=== PATIENT | male | born 1950 | race Caucasian/White ===

== ENCOUNTER → 2017-11-12 07:46 | Outpatient (CLI) | payer MEDICARE, OTHER, SELFPAY ==
[2017-11-12 08:34] LABS: BUN Creatinine Ratio 16.3 (6-22); Blood Urea Nitrogen 13 mg/dL (9-20); Calcium 9.8 mg/dL (8.4-10.2); Carbon Dioxide 32 mmol/L (22-32); Chloride 100 mmol/L (98-107); Estimated Glomerular Filt Rate > 60.0 mL/min (>60); Glucose 176 mg/dL (80-110); HEMOLYSIS < 15 (0-50); Potassium 4.8 mmol/L (3.4-5.1); Sodium 139 mmol/L (137-145)
[2017-11-12 08:37] LABS: Hemoglobin A1C% w Est Avg Glu 7.3 % (4.0-6.0)
== END ==
PROVIDERS: PCP Internal Medicine; Visit Provider Internal Medicine
DX: E11.9 Type 2 diabetes mellitus without complications (principal); I10 Essential (primary) hypertension
CPT/HCPCS: 36415; 80048; 83036

== ENCOUNTER → 2018-01-22 08:26 | Outpatient (CLI) | payer MEDICARE, OTHER, SELFPAY ==
[2018-01-22 09:13] LABS: INR 1.1 (0.9-1.3); Prothrombin Time 12.1 SECONDS (10.1-12.7)
[2018-01-22 09:15] LABS: Add Manual Diff / Slide Review NO; Basophils Percent Auto 0.4 % (0-2); Eosinophils Percent Auto 1.4 % (2-4); Hematocrit 41.2 % (41-53); Lymphocytes Percent Auto 17.4 % (25-40); Mean Corpuscular Hemoglobin 30.4 PG (26-34); Mean Corpuscular Volume 89.3 fL (80-100); Monocytes Percent Auto 5.9 % (3-14); Neutrophils Absolute Auto 5400 /uL (3000-5900); Neutrophils Percent Auto 74.9 % (50-75); Platelet Count 150 X10^3/uL (150-400); Red Blood Cell Count 4.61 X10^6/uL (4.5-5.9); Red Cell Distribution Width 13.9 % (11.6-14.8); White Blood Cell Count 7.2 X10^3/uL (4.5-11.0)
[2018-01-22 09:29] LABS: BUN Creatinine Ratio 18.8 (6-22); Blood Urea Nitrogen 15 mg/dL (9-20); Calcium 8.9 mg/dL (8.4-10.2); Carbon Dioxide 29 mmol/L (22-32); Chloride 100 mmol/L (98-107); Estimated Glomerular Filt Rate > 60.0 mL/min (>60); Glucose 239 mg/dL (80-110); HEMOLYSIS < 15 (0-50); Phosphorous 3.5 mg/dL (2.3-3.7); Potassium 4.5 mmol/L (3.4-5.1); Sodium 139 mmol/L (137-145)
== END ==
PROVIDERS: PCP Internal Medicine; Visit Provider Internal Medicine Cardiovascular Disease
DX: R07.9 Chest pain, unspecified (principal)
CPT/HCPCS: 36415; 80069; 85025; 85610

== ENCOUNTER → 2018-02-01 07:54 | Outpatient (CLI) | payer MEDICARE, OTHER, SELFPAY ==
[2018-02-01 09:34] LABS: Albumin 4.2 g/dL (3.5-5.0); BUN Creatinine Ratio 16.3 (6-22); Blood Urea Nitrogen 13 mg/dL (9-20); Calcium 9.2 mg/dL (8.4-10.2); Carbon Dioxide 32 mmol/L (22-32); Chloride 102 mmol/L (98-107); Estimated Glomerular Filt Rate > 60.0 mL/min (>60); Glucose 196 mg/dL (80-110); HEMOLYSIS < 15 (0-50); Phosphorous 3.8 mg/dL (2.3-3.7); Potassium 5.3 mmol/L (3.4-5.1); Sodium 143 mmol/L (137-145)
== END ==
PROVIDERS: Family Provider Internal Medicine; PCP Internal Medicine; Visit Provider Internal Medicine Cardiovascular Disease
DX: R07.9 Chest pain, unspecified (principal)
CPT/HCPCS: 36415; 80069

== ENCOUNTER → 2018-02-27 11:58 | Outpatient (CLI) | payer MEDICARE, OTHER, SELFPAY ==
[2018-02-27 13:29] LABS: BUN Creatinine Ratio 18.6 (6-22); Blood Urea Nitrogen 13 mg/dL (9-20); Calcium 9.4 mg/dL (8.4-10.2); Carbon Dioxide 29 mmol/L (22-32); Chloride 101 mmol/L (98-107); Estimated Glomerular Filt Rate > 60.0 mL/min (>60); Glucose 179 mg/dL (80-110); HEMOLYSIS < 15 (0-50); Potassium 4.2 mmol/L (3.4-5.1); Sodium 141 mmol/L (137-145)
== END ==
PROVIDERS: Family Provider Internal Medicine; PCP Internal Medicine; Visit Provider Internal Medicine Cardiovascular Disease
DX: I35.0 Nonrheumatic aortic (valve) stenosis (principal); I65.29 Occlusion and stenosis of unspecified carotid artery; E11.9 Type 2 diabetes mellitus without complications; I10 Essential (primary) hypertension
CPT/HCPCS: 36415; 80048

== ENCOUNTER → 2018-03-18 08:00 | Outpatient (CLI) | payer MEDICARE, OTHER, SELFPAY ==
[2018-03-18 10:06] LABS: Hemoglobin A1C% w Est Avg Glu 7.9 % (4.0-6.0)
== END ==
PROVIDERS: PCP Internal Medicine; Visit Provider Internal Medicine
DX: E11.9 Type 2 diabetes mellitus without complications (principal)
CPT/HCPCS: 36415; 83036

== ENCOUNTER → 2018-04-09 07:54 | Outpatient (CLI) | payer MEDICARE, OTHER, SELFPAY ==
[2018-04-09 09:03] LABS: Alanine Aminotransferase 23 IU/L (21-72); Albumin 4.1 g/dL (3.5-5.0); Albumin Globulin Ratio 1.5 (1.0-2.8); Alkaline Phosphatase 83 U/L (38-126); Aspartate Aminotransferase 20 IU/L (17-59); Bilirubin Total 0.6 mg/dL (0.2-1.3); Bilirubin Unconjugated 0.4 mg/dL (0.0-1.1); Cholesterol 155 mg/dL (140-199); Globulin 2.8 g/dL (1.7-4.1); HDL Cholesterol 51 mg/dL (40-60); HEMOLYSIS < 15 (0-50); LDL Cholesterol Calculated 81 mg/dL (<100); Total Protein 6.9 g/dL (6.3-8.2); Triglycerides 116 mg/dL (35-150)
== END ==
PROVIDERS: PCP Internal Medicine; Visit Provider Physician Assistant
DX: E78.5 Hyperlipidemia, unspecified (principal)
CPT/HCPCS: 36415; 80061; 80076

== ENCOUNTER → 2018-05-04 09:06 | Outpatient (CLI) | payer MEDICARE, OTHER, SELFPAY | PROVIDERS: Family Provider Internal Medicine; PCP Internal Medicine; Visit Provider Urology | DX: Z12.5 Encounter for screening for malignant neoplasm of prostate (principal) | CPT/HCPCS: 36415; 84153; G0103 ==

== ENCOUNTER 2018-08-09 14:00 | Outpatient (RCR) | payer MEDICARE, OTHER, SELFPAY | END 2018-08-16 10:29 | LOC: CAR 14:00 | PROVIDERS: Family Provider Internal Medicine; PCP Internal Medicine; Visit Provider Internal Medicine Interventional Cardiology | DX: Z95.2 Presence of prosthetic heart valve (principal) | CPT/HCPCS: 93798 ==

== ENCOUNTER → 2019-02-24 11:58 | Outpatient (CLI) | payer MEDICARE, OTHER, SELFPAY ==
--- NOTE | 2019-02-24 12:07 | DI.CT.S_ITS ---
PROCEDURE: CT ABDOMEN W CON INDICATIONS: Neoplasm of unspecified behavior of digestive system. Additional history: Pancreatic lesion. TECHNIQUE: After the administration of intravenous contrast, 5 mm thick sections acquired from the diaphragm to the iliac crests. 5 mm coronal and sagittal reformats were performed. For radiation dose reduction, the following was used: automated exposure control, adjustment of mA and/or kV according to patient size. COMPARISON: CT angiogram of the chest, abdomen and pelvis 02/11/2018. CT IVP 05/10/2009. FINDINGS: Image quality: Excellent. Lung bases: Lung bases are clear. Heart size is normal. Small hiatal hernia. Solid organs: Liver is normal in size and enhancement. Focal hypodense lesion in segment 6 measuring 1.5 cm, (2/35). There is a punctate focus of peripheral arterial enhancement. This is faintly visualized on the prior CT from 2017 and enhancing in 2009 consistent with a hemangioma. Gallbladder is absent. Biliary system is non dilated. Pancreas enhances normally. Unilocular cystic lesion in the tail of the pancreas measuring 2 x 1.1 cm, (2/30), previously 2 x 1 cm, remotely 1.9 x 1.1 cm in 2009. No enhancing mural nodule. No pancreatic ductal dilatation. No peripancreatic fluid collection. Spleen is normal in size and enhancement. No adrenal nodules. Kidneys demonstrate normal size and enhancement, without hydronephrosis. Small simple left renal cyst. Peritoneum and bowel: Bowel loops demonstrate normal wall thickness and caliber. No free fluid or air. Nodes and vessels: No retroperitoneal or mesenteric adenopathy by size criteria. Aorta and inferior vena cava are normal in size. Miscellaneous: No ventral hernias. IMPRESSION: 1. Small cystic lesion in the tail of the pancreas measuring 2 cm. No suspicious imaging features and unchanged since 2009. Differential diagnosis includes epithelial cyst, IPMN, and less likely pseudocyst or MCN. 2. Small benign hemangioma in segment 6 of the liver. Dictated by: Christopher Burroughs M.D. on 02/25/2019 at 10:04 Approved by: Christopher Burroughs M.D. on 02/25/2019 at 10:38
[2019-02-24 12:42] LABS: Blood Urea Nitrogen 14 mg/dL (9-20); Carbon Dioxide 31 mmol/L (22-32); Chloride 99 mmol/L (98-107); Estimated Glomerular Filt Rate > 60.0 mL/min (>60); Glucose 116 mg/dL (80-110); HEMOLYSIS < 15 (0-50); Potassium 4.1 mmol/L (3.4-5.1); Sodium 136 mmol/L (137-145)
== END ==
PROVIDERS: PCP Internal Medicine; Visit Provider Internal Medicine
DX: D49.0 Neoplasm of unspecified behavior of digestive system (principal); K86.9 Disease of pancreas, unspecified; D18.09 Hemangioma of other sites; N28.1 Cyst of kidney, acquired
CPT/HCPCS: 36415; 74170; 80048; Q9967

== ENCOUNTER → 2019-05-26 14:50 | Outpatient (ROUT) | payer MEDICARE, OTHER, SELFPAY ==
[2019-05-26 15:12] LABS: Hemoglobin A1C% w Est Avg Glu 7.3 % (4.0-6.0)
[2019-05-26 15:16] LABS: Aspartate Aminotransferase 25 IU/L (17-59); BUN Creatinine Ratio 18.6 (6-22); Blood Urea Nitrogen 13 mg/dL (9-20); Calcium 9.3 mg/dL (8.4-10.2); Carbon Dioxide 29 mmol/L (22-32); Chloride 100 mmol/L (98-107); Cholesterol 183 mg/dL (140-199); Estimated Glomerular Filt Rate > 60.0 mL/min (>60); Glucose 159 mg/dL (80-110); HDL Cholesterol 52 mg/dL (40-60); HEMOLYSIS < 15 (0-50); LDL Cholesterol Calculated 114 mg/dL (<100); Potassium 4.3 mmol/L (3.4-5.1); Sodium 137 mmol/L (137-145); Triglycerides 86 mg/dL (35-150)
[2019-05-26 16:01] LABS: Vitamin B12 448 pg/mL (239-931)
== END ==
PROVIDERS: PCP Internal Medicine; Visit Provider Internal Medicine
DX: I10 Essential (primary) hypertension (principal); E78.2 Mixed hyperlipidemia; E11.9 Type 2 diabetes mellitus without complications; E53.8 Deficiency of other specified B group vitamins
CPT/HCPCS: 80048; 80061; 82607; 83036; 84450

== ENCOUNTER → 2019-11-30 09:44 | Outpatient (CLI) | payer MEDICARE, OTHER, SELFPAY ==
[2019-12-01 06:36] LABS: PSA Free % 23.6 % (.); PSA, Total 1.1 ng/mL (0.0-4.0)
== END ==
PROVIDERS: PCP Internal Medicine; Referring Provider Urology; Visit Provider Urology
DX: N40.1 Benign prostatic hyperplasia with lower urinary tract symptoms (principal); N13.8 Other obstructive and reflux uropathy
CPT/HCPCS: 36415; 84153; 84154

== ENCOUNTER → 2020-01-18 18:37 | Outpatient (ROUT) | payer MEDICARE, OTHER, SELFPAY ==
[2020-01-18 19:02] LABS: Add Manual Diff / Slide Review NO; Basophils Absolute Auto 0 /uL (0-100); Basophils Percent Auto 0.3 % (0-2); Eosinophils Absolute Auto 100 /uL (0-450); Eosinophils Percent Auto 1.6 % (2-4); Hemoglobin 14.1 g/dL (13.5-17.5); Lymphocytes Absolute Auto 1300 /uL (1100-4500); Lymphocytes Percent Auto 24.4 % (25-40); Mean Corpuscular HGB Conc 33.6 % (30-36); Mean Corpuscular Volume 89.5 fL (80-100); Monocytes Absolute Auto 300 /uL (0-900); Monocytes Percent Auto 6.4 % (3-14); Neutrophils Absolute Auto 3500 /uL (1500-7000); Neutrophils Percent Auto 67.3 % (50-75); Platelet Count 152 X10^3/uL (150-400); Red Cell Distribution Width 14.3 % (11.6-14.8); White Blood Cell Count 5.1 X10^3/uL (4.5-11.0)
[2020-01-18 19:12] LABS: Alanine Aminotransferase 23 IU/L (<50); Albumin Globulin Ratio 1.4 (1.0-2.8); Alkaline Phosphatase 69 U/L (38-126); Aspartate Aminotransferase 24 IU/L (17-59); BUN Creatinine Ratio 17.3 (6-22); Bilirubin Total 0.7 mg/dL (0.2-1.3); Blood Urea Nitrogen 13 mg/dL (9-20); Calcium 9.1 mg/dL (8.4-10.2); Carbon Dioxide 32 mmol/L (22-32); Chloride 100 mmol/L (98-107); Cholesterol 139 mg/dL (140-199); Estimated Glomerular Filt Rate > 60.0 mL/min (>60); Globulin 2.8 g/dL (1.7-4.1); Glucose 170 mg/dL (80-110); HDL Cholesterol 71 mg/dL (40-60); HEMOLYSIS < 15 (0-50); LDL Cholesterol Calculated 55 mg/dL (<100); Potassium 4.4 mmol/L (3.4-5.1); Sodium 136 mmol/L (137-145); Total Protein 6.8 g/dL (6.3-8.2); Triglycerides 67 mg/dL (35-150)
[2020-01-18 19:39] LABS: TSH w/ Reflex to FT4 0.42 uIU/mL (0.47-4.68)
[2020-01-18 20:21] LABS: Free T4, Direct Thyroxine 1.32 ng/dL (0.78-2.19)
== END ==
PROVIDERS: PCP Internal Medicine; Visit Provider Internal Medicine
DX: I25.10 Atherosclerotic heart disease of native coronary artery without angina pectoris (principal); E78.2 Mixed hyperlipidemia
CPT/HCPCS: 80053; 80061; 84439; 84443; 85025

== ENCOUNTER → 2020-01-24 08:19 | Outpatient (CLI) | payer MEDICARE, OTHER, SELFPAY ==
--- NOTE | 2020-01-24 | DI.US.S_ITS ---
PROCEDURE: US THYROID INDICATIONS: Nontoxic single thyroid nodule TECHNIQUE: Real-time scanning was performed of the thyroid gland, with image documentation. COMPARISON: [facility], US, THYROID, 03/24/2017, 7:23. FINDINGS: Right: Thyroid lobe measures 5.9 x 2.9 x 2.7 cm, and is homogeneous in echotexture. Left: Thyroid lobe measures 5.2 x 2.7 x 2.0 cm, and is homogenous in echotexture. Isthmus: 3.0 mm thick. Nodule number: 1 Location: Right inferior Size: Unchanged at 0.4 x 0.6 x 0.5 cm Composition: Predominantly solid Echogenicity: Heterogeneous Shape: Wider than tall Margins: Smooth Echogenic foci: None Total points: 3 ACR TI-RADS category: Mildly suspicious Nodule number: 2 Location: Left inferior Size: Unchanged 1.0 x 0.9 x 0.5 cm. Composition: Predominantly solid Echogenicity: Heterogeneous Shape: wider than tall. Margins: Smooth Echogenic foci: None Total points: 3 ACR TI-RADS category: Mildly suspicious Nodule number: 3 Location: Left mid Size: Unchanged 0.7 x 0.7 x 0.4 cm. Composition: Predominantly cystic Echogenicity: Predominantly anechoic Shape: wider than tall. Margins: Smooth Echogenic foci: None Total points: 0 ACR TI-RADS category: Benign colloid cyst IMPRESSION: Stable appearance of bilateral thyroid nodules. Given the small size is, no follow-up is warranted. ACR TI-RADS definitions and recommendations: TI-RADS 1 (benign): 0 points. FNA not needed. TI-RADS 2 (not suspicious): 2 points. FNA not needed. TI-RADS 3 (mildly suspicious): 3 points. * FNA if 2.5 cm or larger, follow up if 1.5 cm or larger (at 1, 3, and 5 years). TI-RADS 4 (moderately suspicious): 4-6 points. * FNA if 1.5 cm or larger, follow up if 1 cm or larger (at 1, 2, 3, and 5 years). TI-RADS 5 (highly suspicious): 7 points or more. * FNA if 1 cm or larger, follow up if 0.5 cm or larger (every year for 5 years). Dictated by: Frantz RANDHAWA Interpreted: Laura Nash MD on 01/24/2020 at 17:01 Approved by: Laura Nash MD, PhD on 01/24/2020 at 17:41
== END ==
PROVIDERS: PCP Internal Medicine; Referring Provider Internal Medicine; Visit Provider Internal Medicine
DX: E04.2 Nontoxic multinodular goiter (principal)
CPT/HCPCS: 76536

== ENCOUNTER → 2020-04-30 09:19 | Outpatient (CLI) | payer MEDICARE, OTHER, SELFPAY ==
--- NOTE | 2020-04-30 | DI.ECHO.S_ITS ---
[facility]---------+ [facility] +---------+ : : [address] : : : : [phone] : : : : Phone: [phone] Echocardiogram Report + + :Name: ESAU SANTIAGO Study Date: 04/30/2020 Height: 66 in : :[facility] Exam Location: [address] [place] [address] Weight: 168 lb : : Gender: Male BSA: 1.9 m2 : :: 1950 Age: 69 yrs BP: 160/89 mmHg: :Reason For Study: AORTIC STENOSIS : :Ordering Physician: JOON, : :BO Performed By: Arianna Lam : :Referring: STEVE MORALES : + + Interpretation Summary Mild concentric left ventricular hypertrophy with ejection fraction 60-65%. Mild mitral annular calcification. Mild mitral regurgitation. The bioprosthetic aortic valve is well seated. There is mild perivalvular regurgitation around the prosthetic aortic valve. Mildly enlarged ascending aorta. Procedure: A two-dimensional transthoracic echocardiogram with color flow and Doppler was performed. The study quality was technically adequate. The patient had an echocardiogram, but there is no comparison study available. The heart rate ranged between 58-64 bpm during the study. Left Ventricle: The left ventricle is normal in size. There is mild concentric left ventricular hypertrophy. The ejection fraction is estimated to be 60-65%. There are no focal wall motion abnormalities. Diastolic parameters suggest a relaxation abnormality of the left ventricle, consistent with probable normal filling pressures. Right Ventricle: The right ventricle grossly appears normal in size with probable normal systolic function. Atria: Both atria are normal in size. There is no Doppler evidence for an interatrial shunt. Mitral Valve: The mitral valve leaflets appear mildly thickened, but open well. There is mild mitral annular calcification. There is mild mitral regurgitation. Aortic Valve: There is a prosthetic aortic valve. There is mild perivalvular regurgitation around the prosthetic aortic valve. Tricuspid Valve: The tricuspid valve is normal in structure and function. Pulmonary artery pressures cannot be estimated because of the lack of a measurable TR jet velocity but the IVC suggests a CVP of around 8 mmHg. There is trace tricuspid regurgitation. Pulmonic Valve: The pulmonic valve leaflets are thin and pliable; valve motion is normal. There is no pulmonic valvular regurgitation. Great Vessels: The ascending aorta is mildly enlarged. The IVC is dilated (diameter is greater than 2.1 cm) yet it collapses greater than 50% with a sniff. This suggests a right atrial pressure of 8 mm Hg. Pericardium/ Pleura There is no pericardial effusion. There is no pleural effusion. MMode/2D Measurements & Calculations LVIDd: 4.1 cm LVOT diam: 1.9 cm LVIDs: 2.7 cm asc Aorta Diam: 3.5 cm FS: 33.4 % Ao Arch Diam (Prox Trans): 3.1 cm EPSS: 1.4 cm IVSd: 1.1 cm LVPWd: 1.1 cm LV snider. diameter/BSA (cm/m^2): 2.2 LV sys. diameter/BSA (cm/m^2): 1.5 LA A2 area: 22.3 cm2 RA long axis: 5.4 cm LA A4 area: 19.4 cm2 RA area: 17.3 cm2 LA length (vol): 6.0 cm RA vol: 47.2 ml LA vol: 60.8 ml RA : 25.4 ml/m2 LA vol index: 32.7 ml/m2 IVC diam: 2.3 cm RVD1 (basal): 2.8 cm TAPSE: 3.1 cm Doppler Measurements & Calculations Ao V2 max: 254.0 cm/sec LVOT Max Davie: 86.2 cm/sec Ao V2 mean: 166.3 cm/sec LV V1 max P.0 mmHg Ao max P.8 mmHg LV V1 VTI: 21.6 cm Ao mean P.9 mmHg ANTHONY(I,D): 1.1 cm2 Ao V2 VTI: 56.3 cm ANTHONY(V,D): 0.94 cm2 sev ratio: 0.38 ANTHONY indexed to BSA (cm^2/m^2): 0.57 MV E max davie: 122.1 cm/sec PA V2 max: 71.0 cm/sec MV A max davie: 120.9 cm/sec PA V2 mean: 50.0 cm/sec MV E/A: 1.0 PA mean P.1 mmHg Med Peak E' Davie: 4.6 cm/sec PA pr(Accel): 8.8 mmHg E/E' med: 26.8 Lat Peak E' Davie: 7.4 cm/sec E/E' lat: 16.6 E/e' average: 21.7 MV dec time: 0.26 sec SV(LVOT): 60.1 ml Electronically signed by: Nicole Powell on Reading Physician:04/30/2020 05:59 PM
== END ==
PROVIDERS: PCP Internal Medicine; Referring Provider Internal Medicine Cardiovascular Disease; Visit Provider Internal Medicine Cardiovascular Disease
DX: I08.0 Rheumatic disorders of both mitral and aortic valves (principal); I77.89 Other specified disorders of arteries and arterioles; Z95.2 Presence of prosthetic heart valve
CPT/HCPCS: 93306

== ENCOUNTER → 2020-06-29 07:44 | Outpatient (CLI) | payer MEDICARE, OTHER, SELFPAY ==
[2020-06-29] MEDS: COVID-19 VACC, Ad26(JANSSEN)/PF 0.5 ML IM (07:51)
== END ==
PROVIDERS: PCP Internal Medicine; Visit Provider Internal Medicine
DX: Z23 Encounter for immunization (principal)
CPT/HCPCS: 0031A; 91303

== ENCOUNTER → 2020-09-13 14:13 | Outpatient (CLI) | payer MEDICARE, OTHER, SELFPAY ==
--- NOTE | 2020-09-13 14:16 | DI.RAD.S_ITS ---
PROCEDURE: XR LUMBAR SPINE 2-3V INDICATIONS: Pain, extending into the left leg/hip. TECHNIQUE: 3 views of the lumbar spine were acquired. COMPARISON: None. FINDINGS: Bones: No acute fracture identified. Trace retrolisthesis of L3 on L4. There is extensive anterior osteophyte formation and flowing ossification. Moderate narrowing of the lumbar disc spaces. Multilevel degenerative endplate sclerosis and spurring. Diffuse facet arthropathy. Mild levocurvature. Mild bilateral hip joint degeneration Soft tissues: Overlying bowel gas pattern is normal. No suspicious soft tissue calcifications. IMPRESSION: Multilevel moderate lumbar space spondylosis and facet arthropathy. Mild levocurvature. Prominent anterior spinal ossification raising the possibility of superimposed DISH (diffuse idiopathic skeletal hyperostosis) Dictated by: Cachorro Swain M.D. on 09/13/2020 at 15:55 Approved by: Cachorro Swain M.D. on 09/13/2020 at 15:57
== END ==
PROVIDERS: PCP Internal Medicine; Referring Provider Internal Medicine; Visit Provider Internal Medicine
DX: M54.5 Low back pain (principal); M47.816 Spondylosis without myelopathy or radiculopathy, lumbar region
CPT/HCPCS: 72100

== ENCOUNTER → 2020-12-10 07:43 | Outpatient (CLI) | payer MEDICARE, OTHER, SELFPAY ==
[2020-12-10 09:02] LABS: Aspartate Aminotransferase 23 IU/L (17-59); BUN Creatinine Ratio 14.9 (6-22); Blood Urea Nitrogen 11 mg/dL (9-20); Calcium 9.2 mg/dL (8.4-10.2); Carbon Dioxide 31 mmol/L (22-32); Chloride 101 mmol/L (98-107); Cholesterol 124 mg/dL (140-199); Estimated Glomerular Filt Rate > 60.0 mL/min (>60); Glucose 167 mg/dL (80-110); HDL Cholesterol 60 mg/dL (40-60); HEMOLYSIS < 15 (0-50); LDL Cholesterol Calculated 48 mg/dL (<100); Potassium 4.1 mmol/L (3.4-5.1); Sodium 137 mmol/L (137-145); Triglycerides 81 mg/dL (35-150)
== END ==
PROVIDERS: PCP Internal Medicine; Referring Provider Internal Medicine; Visit Provider Internal Medicine
DX: I10 Essential (primary) hypertension (principal); E78.2 Mixed hyperlipidemia
CPT/HCPCS: 36415; 80048; 80061; 84450

== ENCOUNTER → 2020-12-14 10:20 | Outpatient (CLI) | payer MEDICARE, OTHER, SELFPAY ==
[2020-12-16 10:24] LABS: PSA Free % 24.2 % (.); PSA, Total 1.2 ng/mL (0.0-4.0)
== END ==
PROVIDERS: PCP Internal Medicine; Referring Provider Urology; Visit Provider Urology
DX: N40.1 Benign prostatic hyperplasia with lower urinary tract symptoms (principal); N13.8 Other obstructive and reflux uropathy
CPT/HCPCS: 36415; 84153; 84154

== ENCOUNTER → 2021-10-24 09:19 | Outpatient (CLI) | payer MEDICARE, OTHER, SELFPAY ==
[2021-10-24 12:25] LABS: Prostate Specific Antigen 1.13 ng/mL (0.10-4.00)
== END ==
PROVIDERS: PCP Student in an Organized Health Care Education/Training Program; Referring Provider Specialist; Visit Provider Specialist
DX: R97.20 Elevated prostate specific antigen [PSA] (principal); R33.9 Retention of urine, unspecified
CPT/HCPCS: 36415; 51798; 84153

== ENCOUNTER → 2021-10-29 14:59 | Outpatient (CLI) | payer MEDICARE, OTHER, SELFPAY ==
--- NOTE | 2021-10-29 15:01 | DI.RAD.S_ITS ---
PROCEDURE: XR CHEST 2V INDICATIONS: shortness of breath TECHNIQUE: 2 views of the chest were acquired. COMPARISON: None. FINDINGS: Surgical changes and devices: None. Lungs and pleura: Lungs are clear. No pleural effusions or pneumothorax. Mediastinum: Mediastinal contours are normal. Heart size is normal. Bones and chest wall: No suspicious bony abnormalities. Soft tissues appear unremarkable. IMPRESSION: No acute cardiopulmonary process demonstrated radiographically. Dictated by: Marcos Hunt M.D. on 10/29/2021 at 15:29 Approved by: Marcos Hunt M.D. on 10/29/2021 at 15:30
== END ==
PROVIDERS: PCP Student in an Organized Health Care Education/Training Program; Referring Provider Physician Assistant; Visit Provider Physician Assistant
DX: R06.02 Shortness of breath (principal)
CPT/HCPCS: 71046

== ENCOUNTER → 2022-02-28 07:45 | Outpatient (CLI) | payer MEDICARE, OTHER, SELFPAY ==
[2022-02-28 09:53] LABS: Cholesterol 128 mg/dL (140-199); HDL Cholesterol 51 mg/dL (40-60); LDL Cholesterol Calculated 62 mg/dL (<100); Triglycerides 75 mg/dL (35-150)
== END ==
PROVIDERS: PCP Student in an Organized Health Care Education/Training Program; Referring Provider Nurse Practitioner Family; Visit Provider Nurse Practitioner Family
DX: I25.10 Atherosclerotic heart disease of native coronary artery without angina pectoris (principal); E78.5 Hyperlipidemia, unspecified
CPT/HCPCS: 36415; 80061

== ENCOUNTER → 2022-04-03 11:21 | Outpatient (CLI) | payer MEDICARE, OTHER, SELFPAY ==
--- NOTE | 2022-04-03 11:23 | DI.RAD.S_ITS ---
PROCEDURE: XR LUMBAR SPINE 2-3V INDICATIONS: Lumbar back pain TECHNIQUE: 3 views of the lumbar spine were acquired. COMPARISON: , CR, XR LUMBAR SPINE 2-3V, 09/13/2020, 14:14. FINDINGS: Bones: 5 [id number] vertebrae are present. There is trace anterolisthesis of L4 on L5. No vertebral body compression fractures. No suspicious bony lesions. Degenerative disc disease, moderate at L3-L4, L4-L5 and L5-S1, mild at T12-L1, L1-L2 and L2-L3. Moderate facet arthropathy at L4-L5 and L5-S1. Soft tissues: Overlying bowel gas pattern is normal. No suspicious soft tissue calcifications. IMPRESSION: 1. Moderate degenerative disc and facet disease. Dictated by: Ingrid Nava M.D. on 04/03/2022 at 16:21 Approved by: Ingrid Nava M.D. on 04/03/2022 at 16:26
== END ==
PROVIDERS: PCP Student in an Organized Health Care Education/Training Program; Referring Provider Nurse Practitioner Family; Visit Provider Nurse Practitioner Family
DX: M51.36 Other intervertebral disc degeneration, lumbar region (principal); M51.37 Other intervertebral disc degeneration, lumbosacral region; M47.816 Spondylosis without myelopathy or radiculopathy, lumbar region; M47.817 Spondylosis without myelopathy or radiculopathy, lumbosacral region; M54.50 Low back pain, unspecified
CPT/HCPCS: 72100

== ENCOUNTER 2022-05-31 14:04 | Emergency (ER) | payer MEDICARE, OTHER, SELFPAY ==
[2022-05-31 14:25] VITALS: BP 122/62; PULSE 74; RESP 18; TEMP 36.2; O2SAT 100; BMI 24.8
--- NOTE | 2022-05-31 15:01 | DI.RAD.S_ITS ---
PROCEDURE: XR CHEST 2V INDICATIONS: COVID TECHNIQUE: 2 views of the chest were acquired. COMPARISON: Outside Facility, RG, CTA CHEST ABDOMEN PELVIS ANGIO, 02/11/2018, 11:53. [facility], CR, XR CHEST 2V, 10/29/2021, 15:05. FINDINGS: Surgical changes and devices: A percutaneously placed aortic valve replacement can be seen. Cholecystectomy clips are faintly seen. Lungs and pleura: Lungs are clear. No pleural effusions or pneumothorax. Mediastinum: Mediastinal contours are normal. Heart size is normal. Bones and chest wall: No suspicious bony abnormalities. Age-appropriate bony degenerative changes are seen. Soft tissues appear unremarkable. IMPRESSION: No focal infiltrates are seen. Dictated by: Hector Maldonado M.D. on 05/31/2022 at 14:30 Approved by: Hector Maldonado M.D. on 05/31/2022 at 14:31
[2022-05-31 16:54] VITALS: BP 145/65; PULSE 80; RESP 15; O2SAT 100
[2022-05-31 17:00] VITALS: BP 121/60; PULSE 75; RESP 12; O2SAT 100
[2022-05-31 17:30] VITALS: BP 129/65; PULSE 74; RESP 23; O2SAT 99
--- NOTE | 2022-05-31 18:00 | ED_ITS ---
HPI - URI/Sore Throat <STEVEN Paredes - Last Filed: 05/31/22 19:04> General Chief Complaint: Upper Respiratory Symptoms Stated Complaint: Covid positive, low BP, unsteady Time Seen by Provider: 05/31/22 15:33 History of Present Illness HPI Narrative: 71-year-old male, former smoker with history of valvular disease, presents to the emergency department with concerns over low blood pressure and feeling dizzy. Patient endorses that he tested positive for COVID 3 days ago, and symptoms started the day afterwards. Patient has been taking his blood pressure at home with an average of 91/56. Patient states that he has been able to eat, drink, urinate and defecate normally and without difficulty. Related Data Home Medications Medication Instructions Recorded Confirmed diazepam 5 mg tablet (Valium) 5 mg PO HS PRN ##0 12/14/15 12/04/21 metformin 500 mg tablet,extended 500 mg PO BID ##0 12/14/15 12/04/21 release 24 hr (Glucophage XR) aspirin 81 mg tablet,delayed 81 mg PO DAILY 05/27/18 12/04/21 release (Adult Low Dose Aspirin) carvedilol 25 mg tablet 25 mg PO BID 05/27/18 12/04/21 glipizide 10 mg tablet 10 mg PO BID 05/27/18 12/04/21 lisinopril 5 mg tablet 10 mg PO DAILY 05/27/18 12/04/21 insulin aspart U-100 [Novolog SUBCUT 10/23/21 12/04/21 FlexPen U-100 Insulin] melatonin 10 mg tablet 10 mg PO BEDTIME PRN 10/23/21 12/04/21 rosuvastatin 20 mg tablet 20 mg PO DAILY 10/23/21 12/04/21 zolpidem 5 mg tablet 5 mg PO BEDTIME PRN 10/23/21 12/04/21 Previous Rx's Medication Instructions Recorded finasteride 5 mg tablet 5 mg PO QDAY #90 tabs 10/23/21 terazosin 10 mg capsule 10 mg PO BEDTIME #90 caps 10/23/21 Allergies Allergy/AdvReac Type Severity Reaction Status Date / Time No Known Drug Allergies Allergy Verified 05/31/22 14:25 Review of Systems <STEVEN Paredes - Last Filed: 05/31/22 19:04> Review of Systems Narrative: Narrative: See HPI. GENERAL: Denies current chills, fever, sweats. Endorses minor fatigue. HEENT: Denies sinus pain, ear pain, sore throat, difficulty swallowing, dizziness. RESPIRATORY: Denies dyspnea, cough, wheezing, sputum. CARDIOVASCULAR: Denies chest pain, palpitations, edema. GASTROINTESTINAL: Denies nausea, vomiting, abdominal pain, diarrhea, constipation. : Denies dysuria, frequency, incontinence, hematuria, urinary retention, flank pain. MSK: Denies weakness, joint pain, or bony pain. SKIN: Denies rash, skin lesions, or pruritis. NEUROLOGIC: Denies weakness, headache, numbness, confusion. Endorses dizziness. PSYCHIATRIC: No concerning psychosocial issues. Patient History <STEVEN Paredes - Last Filed: 05/31/22 19:04> Medical History BPH w urinary obs/LUTS History of anemia History of arthritis History of asthma History of BPH History of urinary retention Hx of diabetes mellitus Hx of essential hypertension Hx of renal calculi Hx of valvular heart disease Hypertension Incomplete bladder emptying Insomnia (~2007) Obstructive sleep apnea of adult (~2007) Snoring (~2013) Surgical History Hx of cholecystectomy Hx of hernia repair Family History Mother Cancer CAD (coronary artery disease) Diabetes mellitus Hearing impairment Hyperlipidemia Hypertension Thyroid disorder UTI (urinary tract infection) Father CVA (cerebral vascular accident) Renal failure Parkinson disease Social History marital status: details: polina Root, lives in [place] number of children: 0 household members: spouse lives independently: Yes caregiver/support person: No housing: house Smoking Status: Former smoker Tobacco: How many years used: 8 alcohol intake: current caffeine: Yes Type(s) of exercise: walking Smoking Status: Former smoker tobacco type: vaping alcohol intake frequency: holidays/special occasions only Substance Use Type: marijuana Exam <STEVEN Paredes - Last Filed: 05/31/22 19:04> Narrative Exam Narrative: Exam Narrative: GENERAL: This is a well-nourished, well-developed patient, in no acute distress. HEAD: Atraumatic. Normocephalic. EYES: Pupils equal round and reactive. Extraocular motions intact. No scleral icterus, injection or drainage. ENT: Nose without bleeding, purulent drainage. Throat without erythema, tonsillar hypertrophy or exudate. Uvula midline. Airway patent. TMs and canals clear. No sinus tenderness. NECK: Trachea midline. No JVD or lymphadenopathy. Nontender. CARDIOVASCULAR: Regular rate and rhythm without murmurs, peripheral pulses intact, cap refill <2 sec. RESPIRATORY: Breath sounds equal and clear bilaterally. No wheezes, rales, or rhonchi. No cough. No increased respiratory effort. No accessory muscle use. GASTROINTESTINAL: Abdomen soft, non-tender, nondistended without guarding or rebound. No suprapubic pain. MSK: Moves all extremities. Normal range of motion, no clubbing or edema. Neurovascularly intact. NEURO: A&O x 3. SKIN: Warm, dry, no rashes or lesions noted. Initial Vital Signs Initial Vital Signs: Vital Signs Temperature 97.2 F L 05/31/22 14:25 Pulse Rate 74 05/31/22 14:25 Respiratory Rate 18 05/31/22 14:25 Blood Pressure 122/62 05/31/22 14:25 Pulse Oximetry 100 05/31/22 14:25 Oxygen Delivery Method 05/31/22 14:25 Review <Michelle Perez DO - Last Filed: 05/31/22 23:18> Initial Vital Signs Initial Vital Signs: Vital Signs Temperature 97.2 F L 05/31/22 14:25 Pulse Rate 74 05/31/22 14:25 Respiratory Rate 18 05/31/22 14:25 Blood Pressure 122/62 05/31/22 14:25 Pulse Oximetry 100 05/31/22 14:25 Oxygen Delivery Method 05/31/22 14:25 Course <STEVEN Paredes - Last Filed: 05/31/22 19:04> Orders Ordered: ED Orders 05/31/22 15:01 XR chest 2V Stat Vital Signs Vital signs: Vital Signs - 8 hr 05/31/22 16:54 05/31/22 16:54 05/31/22 17:00 Pulse Rate 80 Respiratory Rate 15 Blood Pressure 145/65 H 121/60 Pulse Oximetry 100 05/31/22 17:00 05/31/22 17:30 05/31/22 17:30 Pulse Rate 75 74 Respiratory Rate 12 23 Blood Pressure 129/65 Pulse Oximetry 100 99 05/31/22 18:01 05/31/22 18:02 05/31/22 18:02 Pulse Rate 85 84 Respiratory Rate 14 Blood Pressure 175/83 H Pulse Oximetry 98 99 <Michelle Perez DO - Last Filed: 05/31/22 23:18> Orders Ordered: ED Orders 05/31/22 15:01 XR chest 2V Stat Vital Signs Vital signs: Vital Signs - 8 hr 05/31/22 16:54 05/31/22 16:54 05/31/22 17:00 Pulse Rate 80 Respiratory Rate 15 Blood Pressure 145/65 H 121/60 Pulse Oximetry 100 05/31/22 17:00 05/31/22 17:30 05/31/22 17:30 Pulse Rate 75 74 Respiratory Rate 12 23 Blood Pressure 129/65 Pulse Oximetry 100 99 05/31/22 18:01 05/31/22 18:02 05/31/22 18:02 Pulse Rate 85 84 Respiratory Rate 14 Blood Pressure 175/83 H Pulse Oximetry 98 99 MDM - URI/Sore Throat <STEVEN Paredes - Last Filed: 05/31/22 19:04> Differential Diagnosis Differential diagnosis: Likely viral infection Imaging Data Chest x-ray: Radiologist's Impression: [address] [address] XRay Report Signed Patient: Ben Sarmiento MR#: [id number] : 1950 Acct:[id number] Age/Sex: 71 / M Date of Service: 05/31/22 Loc: ED Accession Number: [id number] ?? Procedure: XR chest 2V Ordering Provider: Aimee Ruiz D.O. PROCEDURE:? XR CHEST 2V ? INDICATIONS:? COVID ? TECHNIQUE:? 2 views of the chest were acquired.? ? COMPARISON:? Outside Facility, RG, CTA CHEST ABDOMEN PELVIS ANGIO, 02/11/2018, 11:53.? [facility], CR, XR CHEST 2V, 10/29/2021, 15:05. ? FINDINGS:? ? Surgical changes and devices:? A percutaneously placed aortic valve replacement can be seen.? Cholecystectomy clips are faintly seen. ? Lungs and pleura:? Lungs are clear.? No pleural effusions or pneumothorax.? ? Mediastinum:? Mediastinal contours are normal.? Heart size is normal.? ? Bones and chest wall:? No suspicious bony abnormalities.? Age-appropriate bony degenerative changes are seen. ? Soft tissues appear unremarkable.? IMPRESSION:? No focal infiltrates are seen. ? ? Dictated by: Hector Maldonado M.D. on 05/31/2022 at 14:30 ? ? Approved by: Hector Maldonado M.D. on 05/31/2022 at 14:31 ? ECG Data Interpretation: NSR w/ vent rate of 69 bpm. Normal OR interval. MDM Narrative Medical decision making narrative: 71-year-old male presents to the walk-in clinic with low blood pressure and dizziness 1 day after testing positive for COVID 3 days ago. Assessment was encouraging and chest x-ray was normal. EKG reveals normal sinus rhythm and no previous EKG to correlate with. Vital signs have been normal since his arrival to the ED. Patient reports that he has been feeling much better since he arrived to the ED and is no longer having any dizziness. I suspect patient's at home blood pressure readings are erroneous and recommend patient have his blood pressure machines correlated at his next doctor's visit. Patient and spouse agree that patient is doing much better and is ready to go. Discussed plan of care and return precautions with patient and spouse, who verbalized understanding and were agreeable with course of action. <Michelle Perez, DO - Last Filed: 05/31/22 23:18> ECG Data Interpretation: NSR w/ vent rate of 69 bpm. Normal OR interval. SHANON-sinus rhythm rate 6972 QRS [address] changes Q-wave noted in lead 3 and AVF no priors to compare Discharge Plan Departure Patient Disposition: Home Clinical Impression: COVID-19 Instructions: COVID-19 Activity Restrictions/Additional Instructions: *You have been diagnosed with COVID-19. Your vital signs have been normal since her arrival in the emergency department. Your vital signs and chest x-ray were all normal. My assessment was encouraging and I am glad that you are feeling better since her arrival. Please make sure you get plenty of rest, hydrate well and take [id number] medications as needed for comfort. At your next doctor's visit, please take your blood pressure machines with you for correlation. For any worsening symptoms that include chest pain, shortness of breath, persistent dizziness or lightheadedness or intolerable pain, please return to the emergency department. Otherwise, please follow-up with your family doctor as needed. *What to do: *Please continue to take your regular medications as directed. [ ] New medication prescriptions sent to your pharmacy: [ ] [ ] New medication written as a paper prescription [x ] No new medications given *Please follow up with your primary care provider in 2-3 days, call for an appointment. Let them know you were seen in the Emergency Department and that we ask that you be seen in follow up. We will electronically transmit a record of today's note if your PCP is in our system *If you do not have a primary care provider please contact the [facility] Resource line at [phone]. They will ask some questions about your medical history and help get you set up with a doctor in the community. ? Return to ER if you should have any new, worsening or concerning symptoms, such as worsening pain, severe headache, confusion, chest pain, difficulty breathing, fever greater than 101 F, shaking chills, persistent vomiting to the point that you cannot drink fluids, or other new or worsening symptoms. Prescriptions: No Action diazepam [Valium] 5 MG tablet 5 mg PO HS PRNQty: 0 metformin [Glucophage XR] 500 MG tablet extended release 24 hr 500 mg PO BID Qty: 0 carvedilol 25 mg tablet 25 mg PO BID lisinopril 5 mg tablet 10 mg PO DAILY glipizide 10 mg tablet 10 mg PO BID aspirin [Adult Low Dose Aspirin] 81 mg tablet,delayed release (DR/EC) 81 mg PO DAILY rosuvastatin 20 mg tablet 20 mg PO DAILY zolpidem 5 mg tablet 5 mg PO BEDTIME PRN melatonin 10 mg tablet 10 mg PO BEDTIME PRN insulin aspart U-100 [Novolog Flexpen U-100 Insulin] SUBCUT finasteride 5 mg tablet 5 mg PO QDAY Qty: 90 3RF terazosin 10 mg capsule 10 mg PO BEDTIME Qty: 90 3RF Referrals: Mary Luis PA-C [Primary Care Provider] - Stand Alone Forms: Patient Portal/API
[2022-05-31 18:01] VITALS: PULSE 85; O2SAT 98
[2022-05-31 18:02] VITALS: BP 175/83; PULSE 84; RESP 14; O2SAT 99
== END 2022-05-31 18:29 | disposition home or self-care (01) ==
PROVIDERS: Emergency Provider Registered Nurse; PCP Student in an Organized Health Care Education/Training Program
DX: U07.1 COVID-19 (principal); I95.9 Hypotension, unspecified
CPT/HCPCS: 71046; 93005; 99283; 99284

== ENCOUNTER → 2022-06-11 15:46 | Outpatient (CLI) | payer MEDICARE, OTHER, SELFPAY ==
--- NOTE | 2022-06-11 15:48 | DI.MRI.S_ITS ---
PROCEDURE: MR STROKE Pre- and post-contrast brain MRI, non-contrast brain MR angiogram, pre- and postcontrast neck MR angiogram INDICATIONS: Amaurosis fugax TECHNIQUE: Brain: Noncontrast axial T1 spin echo, axial T2 fast spin echo, sagittal and axial FLAIR, coronal T2 fast spin echo, axial gradient echo, axial diffusion and ADC through the brain. After the administration of contrast, axial 3D VIBE of the cranial vasculature and brain. Brain MRA: Non-contrast 3-D time of flight MR angiogram, with multiple ubfqvgp-lorggdfcj-aadbdqyjfb (MIP) reformats performed. Neck MRA: Axial and sagittal TruFISP through the neck. Coronal dynamic MR angiogram during administration of contrast in the arterial and venous phases, with 3-dimenstional tnappzc-eknczbeaj-ihegccczem (MIP) reformats constructed from subtraction images. COMPARISON: [facility], , STROKE PROTOCOL, 05/22/2011, 16:55. FINDINGS: Image quality: This examination is limited by involuntary motion artifact. BRAIN: CSF spaces: Ventricles are normal in size and shape. Basal cisterns are patent. No extra-axial fluid collections. Brain: There is abnormal diffusion-weighted signal seen within the right occipital lobe, with associated dark signal on the ADC map. There is developing T2 weighted signal seen. There is a mild amount of hemosiderin deposition seen within this region, as on series 33, images 12 and 13. There is a mild degree of enhancement seen along the margins of this process, as on series 41, image 88. No intracranial bleeds or mass effects. Dangelo-white matter interface is normal. Brainstem appears normal. Normal intravascular flow voids are present. No abnormal intracranial enhancement. Skull and face: Calvarial marrow signal is normal. Orbits appear normal. Sinuses: Mild mucosal thickening is seen within the ethmoid air cells. There is moderate mucosal thickening within the left maxillary sinus. Mild mucosal thickening is seen elsewhere within the paranasal sinuses. BRAIN MR ANGIOGRAM: Anterior circulation: Intracranial internal carotid arteries are normal in size and enhancement. The flow within the paired anterior cerebral arteries is normal and symmetric. The flow within the middle cerebral arteries is normal and symmetric. The anterior communicating artery is seen. No stenoses, occlusions, or aneurysms. Posterior circulation: The visualized portions of the vertebral arteries demonstrate normal caliber, and join to form a normal appearing basilar artery. The flow within the posterior cerebral arteries is normal and symmetric. No stenoses, occlusions, or aneurysms. NECK MR ANGIOGRAM: Carotids: Great vessels demonstrate a conventional anatomy as they arise from the aortic arch. The origins of the common carotid arteries appear patent. The calibers and courses of both common carotid arteries are normal. The bifurcation regions appear normal bilaterally. The internal carotid arteries demonstrate normal course and caliber. Posterior circulation: The origins of the vertebral arteries appear patent. More superior portions of both vertebral arteries demonstrate normal course and caliber, and join to form a normal appearing basilar artery. Miscellaneous: Subclavian arteries appear patent. Pre-contrast images through the neck show no soft tissue abnormalities. IMPRESSION: BRAIN MRI: Subacute right BUCKLE SE[employer] MACHINE territory infarction seen, with petechial hemorrhage and apparent luxury perfusion. BRAIN MR ANGIOGRAM: No significant intracranial arterial abnormality is seen. NECK MR ANGIOGRAM: Within the arteries of the neck, no hemodynamically significant stenosis can be seen. Dictated by: Hector Maldonado M.D. on 06/11/2022 at 16:30 Approved by: Hector Maldonado M.D. on 06/11/2022 at 16:33
== END ==
PROVIDERS: PCP Student in an Organized Health Care Education/Training Program; Referring Provider Optometrist; Visit Provider Optometrist
DX: I63.89 Other cerebral infarction (principal); G45.3 Amaurosis fugax; H53.462 Homonymous bilateral field defects, left side
CPT/HCPCS: 70548; 70553; A9579

== ENCOUNTER 2022-06-12 18:24 | Emergency (ER) | payer MEDICARE, OTHER, SELFPAY ==
[2022-06-12] VITALS (7 sets, daily range): BP systolic 174–193; BP diastolic 85–92; PULSE 78–183; RESP 18; TEMP 36.6–36.9; O2SAT 99–100; BMI 24.5
[2022-06-12 18:53] LABS: Add Manual Diff / Slide Review NO; Basophils Absolute Auto 0 /uL (0-100); Basophils Percent Auto 0.5 % (0-2); Eosinophils Absolute Auto 0 /uL (0-450); Eosinophils Percent Auto 0.5 % (2-4); Hematocrit 32.6 % (41-53); Hemoglobin 10.7 g/dL (13.5-17.5); Lymphocytes Absolute Auto 1100 /uL (1100-4500); Lymphocytes Percent Auto 13.4 % (25-40); Mean Corpuscular HGB Conc 32.8 % (30-36); Mean Corpuscular Volume 79.3 fL (80-100); Monocytes Absolute Auto 400 /uL (0-900); Monocytes Percent Auto 4.7 % (3-14); Neutrophils Absolute Auto 6700 /uL (1500-7000); Neutrophils Percent Auto 80.9 % (50-75); Platelet Count 237 X10^3/uL (150-400); Red Blood Cell Count 4.11 X10^6/uL (4.5-5.9); White Blood Cell Count 8.3 X10^3/uL (4.5-11.0)
[2022-06-12 19:00] LABS: INR 1.2 (0.9-1.3); Prothrombin Time 13.7 SECONDS (10.1-12.7)
[2022-06-12 19:02] LABS: COVID19 -Nasal RAPID POSITIVE (Negative)
[2022-06-12 19:03] LABS: PTT Partial Thromboplastin Tim 30 SECONDS (26-36)
[2022-06-12 19:04] LABS: Alanine Aminotransferase 31 IU/L (<50); Albumin 3.8 g/dL (3.5-5.0); Alkaline Phosphatase 136 U/L (38-126); Aspartate Aminotransferase 26 IU/L (17-59); BUN Creatinine Ratio 20.3 (6-22); Bilirubin Total 0.7 mg/dL (0.2-1.3); Blood Urea Nitrogen 13 mg/dL (9-20); Calcium 8.9 mg/dL (8.4-10.2); Carbon Dioxide 29 mmol/L (22-32); Chloride 95 mmol/L (98-107); Estimated Glomerular Filt Rate > 60 mL/min (>60); Globulin 3.8 g/dL (1.7-4.1); Glucose 182 mg/dL (80-110); HEMOLYSIS < 15 (0-50); Lipase 85 U/L (23-300); Magnesium 1.9 mg/dL (1.6-2.3); Potassium 3.6 mmol/L (3.4-5.1); Sodium 133 mmol/L (137-145); Total Protein 7.6 g/dL (6.3-8.2)
--- NOTE | 2022-06-12 19:08 | PC.NURSE ---
pt reports left eye upper quadrent is blurry but able to appreciate fingers wiggling, can see aura when eyes are covered, eye doc saw darkness/aura in upper quadrent as well.
--- NOTE | 2022-06-12 19:16 | PC.NURSE ---
Pt ambulatory with steady gait to room. Alert, awake, and oriented x4/4. Breathing even and unlabored, denies pain. Approximately 2/14 pt noticed aura in left eye, then loss to left upper visual field. Outpatient MRI 06/11, pt was called to come to ER r/t findings suggesting a stroke.
--- NOTE | 2022-06-12 19:31 | ED_ITS ---
HPI - General Adult General Chief complaint: Altered Mental Status Stated complaint: Thinks stroke Time Seen by Provider: 06/12/22 18:32 Source: patient Mode of arrival: Ambulatory Limitations: no limitations History of Present Illness HPI narrative: Patient is a 71-year-old male. Is an insulin-dependent diabetic. He states that approximately 1 week ago he started to have a visual aura and a headache in the back of his head. This is not necessarily unusual for him as he does sometimes get headaches with auras. He states the ora improved however he had a visual disturbance that was very difficult for him to identify. He went to go see his eye doctor. There was a exam performed. His eye doctor ordered a brain MRI. Also during this time he had contacted his mononitrotoluene operator. He has a history of a TAVR and was concerned that maybe his symptoms that he was having were related to his heart as well. He stated that he had the MRI performed as a outpatient. He received a call from his mononitrotoluene operator's office telling him that he had had a stroke that he needed to come to the emergency department. Here in the emergency department he states that he is having that continued visual disturbance. Is difficult for him to describe. He is not having headache. No balance issues. No chest pain, no shortness of breath, no palpitations, no abdominal pain, no nausea vomiting, no urinary symptoms, no numbness and tingling in his upper and lower extremities. He is not on blood thinners. He does take an aspirin on a daily basis. Related Data Home Medications Medication Instructions Recorded Confirmed diazepam 5 mg tablet (Valium) 5 mg PO HS PRN ##0 12/14/15 12/04/21 metformin 500 mg tablet,extended 500 mg PO BID ##0 12/14/15 12/04/21 release 24 hr (Glucophage XR) aspirin 81 mg tablet,delayed 81 mg PO DAILY 05/27/18 12/04/21 release (Adult Low Dose Aspirin) carvedilol 25 mg tablet 25 mg PO BID 05/27/18 12/04/21 glipizide 10 mg tablet 10 mg PO BID 05/27/18 12/04/21 lisinopril 5 mg tablet 10 mg PO DAILY 05/27/18 12/04/21 insulin aspart U-100 [Novolog SUBCUT 07/06/22 08/17/22 FlexPen U-100 Insulin] melatonin 10 mg tablet 10 mg PO BEDTIME PRN 10/23/21 12/04/21 rosuvastatin 20 mg tablet 20 mg PO DAILY 10/23/21 12/04/21 zolpidem 5 mg tablet 5 mg PO BEDTIME PRN 10/23/21 12/04/21 Previous Rx's Medication Instructions Recorded finasteride 5 mg tablet 5 mg PO QDAY #90 tabs 10/23/21 terazosin 10 mg capsule 10 mg PO BEDTIME #90 caps 10/23/21 clopidogrel 75 mg tablet (Plavix) 75 mg PO DAILY #30 tabs 06/12/22 Allergies Allergy/AdvReac Type Severity Reaction Status Date / Time No Known Drug Allergies Allergy Verified 05/31/22 14:25 Review of Systems Review of Systems ROS Unobtainable: All systems reviewed & are unremarkable except as noted in HPI and below Patient History Medical History BPH w urinary obs/LUTS History of anemia History of arthritis History of asthma History of BPH History of urinary retention Hx of diabetes mellitus Hx of essential hypertension Hx of renal calculi Hx of valvular heart disease Hypertension Incomplete bladder emptying Insomnia (~2007) Obstructive sleep apnea of adult (~2007) Snoring (~2013) Surgical History Hx of cholecystectomy Hx of hernia repair Family History Mother Cancer CAD (coronary artery disease) Diabetes mellitus Hearing impairment Hyperlipidemia Hypertension Thyroid disorder UTI (urinary tract infection) Father CVA (cerebral vascular accident) Renal failure Parkinson disease Social History marital status: details: polina Root, lives in [place] number of children: 0 household members: spouse lives independently: Yes caregiver/support person: No housing: house Smoking Status: Former smoker Tobacco: How many years used: 8 alcohol intake: current caffeine: Yes Type(s) of exercise: walking Smoking Status: Former smoker tobacco type: vaping alcohol intake frequency: holidays/special occasions only Substance Use Type: marijuana Exam Initial Vital Signs Initial Vital Signs: Vital Signs Temperature 97.9 F 06/12/22 18:26 Pulse Rate 78 06/12/22 18:26 Respiratory Rate 18 06/12/22 18:26 Pulse Oximetry 100 06/12/22 18:26 Oxygen Delivery Method 06/12/22 18:26 Const General: cooperative, healthy appearing, comfortable and No ill appearing HENMT Head: normal to inspection and normocephalic Face and sinus: normal facial exam Mouth: oral mucosae normal Eyes Periorbital: periorbital findings normal Pupils: PERRL EOM: EOM intact bilaterally Other: Patient has a baseline nasal deviation of his left eye that he states is not new. With visual field testing he does have a upper left quadrant visual field deficit of bilateral eyes. Resp Effort & Inspection: normal respiratory effort Auscultation: clear to auscultation bilaterally Cardio Rate: regular rate Rhythm: regular rhythm GI Inspection: normal to inspection Skin General: no rashes or lesions noted Neuro General: patient alert, patient awake, patient oriented x3 and moves all extremities Cranial Nerves: CN's II-XI intact bilaterally (Except for visual field deficit noted above) Cognition: normal cognition Speech: speech normal Gait: normal gait Motor: muscle tone normal throughout Sensory Exam: no sensory deficits noted Coordination: vhzrfu-lf-srdw test normal and ubtw-gv-szpw test normal Extrem General: normal to inspection and capillary refill normal Psych Appearance: grossly normal and well kempt Scores GCS Erlin coma scale eye opening: Spontaneous [facility] coma scale verbal response: Orientated Erlin coma scale motor response: Obey commands [facility] coma scale total score: 15 NIH Stroke Scale Level of Conciousness: Alert, keenly responsive Ask month/age: Answers both questions correctly. Open/close eyes, close hand: Performs both tasks correctly Best gaze horizontal: Normal Visual salguero: Partial hemianopia Facial palsy: Normal symetrical movement Left arm drift: No drift for full 10 sec Right arm drift: No drift for full 10 sec Left leg drift: No drift for full 5 sec Right leg drift: No drift for full 5 sec Limb ataxia: Absent Sensory on face/arms/legs: Normal, no sensory loss Best language: No aphasia, normal Dysarthria: Normal Extinction or inattention: No abnormality Total NIH Stroke scale score: 1 Course Orders Ordered: ED Orders 06/12/22 18:34 EKG-12 Lead Stat 06/12/22 18:42 A1C [Hemoglobin A1C% w Est Avg Glu] Stat COVID19 -Nasal RAPID/Pre-Proc Stat Complete Blood Count AUTO DIFF Stat Comprehensive Metabolic Panel Stat Lipase Stat Magnesium Stat Partial Thromboplastin Time Stat Prothrombin Time INR Stat Discontinued Medications Clopidogrel Bisulfate (Clopidogrel 75 Mg Tablet) 300 mg PO NOW ONE Stop: 06/12/22 21:08 Last Admin: 06/12/22 21:17 Dose: 300 mg Documented By: AT Vital Signs Vital signs: Vital Signs - 8 hr 06/12/22 18:26 06/12/22 19:14 06/12/22 21:19 Temperature 97.9 F 98.5 F Pulse Rate 78 78 Respiratory Rate 18 18 Blood Pressure 174/92 H Pulse Oximetry 100 99 Oxygen Delivery Method Room Air Room Air 06/12/22 20:00 06/12/22 20:30 06/12/22 21:00 Temperature Pulse Rate 82 80 80 Respiratory Rate Blood Pressure 181/85 H 193/89 H 188/87 H Pulse Oximetry 100 100 100 Oxygen Delivery Method Room Air Room Air Room Air 06/12/22 21:15 Temperature Pulse Rate 183 H Respiratory Rate 18 Blood Pressure Pulse Oximetry 100 Oxygen Delivery Method Room Air Medical Decision Making Lab Data Lab results reviewed: Yes I reviewed the patient's lab results. 06/12/22 18:42 06/12/22 18:42 Labs: Lab Results 06/12/22 06/12/22 06/12/22 Range/Units 18:42 18:42 18:42 WBC 8.3 (4.5-11.0) X10^3/uL RBC 4.11 L (4.5-5.9) X10^6/uL Hgb 10.7 L (13.5-17.5) g/dL Hct 32.6 L (41-53) % MCV 79.3 L (80-100) fL MCH 26.0 (26-34) PG MCHC 32.8 (30-36) % RDW 16.0 H (11.6-14.8) % Plt Count 237 (150-400) X10^3/uL Neut % (Auto) 80.9 H (50-75) % Lymph % (Auto) 13.4 L (25-40) % [place] % (Auto) 4.7 (3-14) % Eos % (Auto) 0.5 L (2-4) % Baso % (Auto) 0.5 (0-2) % Neut # (Auto) 6700 (0418-7184) /uL Lymph # (Auto) 1100 (0770-7377) /uL [place] # (Auto) 400 (0-900) /uL Eos # (Auto) 0 (0-450) /uL Baso # (Auto) 0 (0-100) /uL PT 13.7 H (10.1-12.7) SECONDS INR 1.2 (0.9-1.3) APTT 30 (26-36) SECONDS Sodium 133 L (137-145) mmol/L Potassium 3.6 (3.4-5.1) mmol/L Chloride 95 L (98-107) mmol/L Carbon Dioxide 29 (22-32) mmol/L BUN 13 (9-20) mg/dL Creatinine 0.64 L (0.66-1.25) mg/dL Estimated GFR > 60 (>60) mL/min BUN/Creatinine Ratio 20.3 (6-22) Glucose 182 H (80-110) mg/dL Hemoglobin A1c (4.0-6.0) % Calcium 8.9 (8.4-10.2) mg/dL Magnesium 1.9 (1.6-2.3) mg/dL Total Bilirubin 0.7 (0.2-1.3) mg/dL AST 26 (17-59) IU/L ALT 31 (<50) IU/L Alkaline Phosphatase 136 H (38-126) U/L Total Protein 7.6 (6.3-8.2) g/dL Albumin 3.8 (3.5-5.0) g/dL Globulin 3.8 (1.7-4.1) g/dL Albumin/Globulin Ratio 1.0 (1.0-2.8) Lipase 85 (23-300) U/L SARS-CoV-2 (PCR) (Negative) 06/12/22 06/12/22 Range/Units 18:42 18:42 WBC (4.5-11.0) X10^3/uL RBC (4.5-5.9) X10^6/uL Hgb (13.5-17.5) g/dL Hct (41-53) % MCV (80-100) fL MCH (26-34) PG MCHC (30-36) % RDW (11.6-14.8) % Plt Count (150-400) X10^3/uL Neut % (Auto) (50-75) % Lymph % (Auto) (25-40) % [place] % (Auto) (3-14) % Eos % (Auto) (2-4) % Baso % (Auto) (0-2) % Neut # (Auto) (1641-1884) /uL Lymph # (Auto) (5012-4162) /uL [place] # (Auto) (0-900) /uL Eos # (Auto) (0-450) /uL Baso # (Auto) (0-100) /uL PT (10.1-12.7) SECONDS INR (0.9-1.3) APTT (26-36) SECONDS Sodium (137-145) mmol/L Potassium (3.4-5.1) mmol/L Chloride (98-107) mmol/L Carbon Dioxide (22-32) mmol/L BUN (9-20) mg/dL Creatinine (0.66-1.25) mg/dL Estimated GFR (>60) mL/min BUN/Creatinine Ratio (6-22) Glucose (80-110) mg/dL Hemoglobin A1c 8.0 H (4.0-6.0) % Calcium (8.4-10.2) mg/dL Magnesium (1.6-2.3) mg/dL Total Bilirubin (0.2-1.3) mg/dL AST (17-59) IU/L ALT (<50) IU/L Alkaline Phosphatase (38-126) U/L Total Protein (6.3-8.2) g/dL Albumin (3.5-5.0) g/dL Globulin (1.7-4.1) g/dL Albumin/Globulin Ratio (1.0-2.8) Lipase (23-300) U/L SARS-CoV-2 (PCR) Positive H (Negative) Imaging Data brain MRI: Radiologist's Impression: PROCEDURE:? MR STROKE Pre- and post-contrast brain MRI, non-contrast brain MR angiogram, pre- and postcontrast neck MR angiogram ? INDICATIONS:? Amaurosis fugax ? TECHNIQUE:? Brain:? Noncontrast axial T1 spin echo, axial T2 fast spin echo, sagittal and axial FLAIR, coronal T2 fast spin echo, axial gradient echo, axial diffusion and ADC through the brain.? After the administration of contrast, axial 3D VIBE of the cranial vasculature and brain.? Brain MRA:? Non-contrast 3-D time of flight MR angiogram, with multiple hicyltu-nbitwctvp-rtwykhqmay (MIP) reformats performed.? Neck MRA:? Axial and sagittal TruFISP through the neck.? Coronal dynamic MR angiogram during administration of contrast in the arterial and venous phases, with 3-dimenstional dqthusb-obrozcpoo-ggbpuvffqm (MIP) reformats constructed from subtraction images.? ? COMPARISON:? [facility], , STROKE PROTOCOL, 05/22/2011, 16:55. ? FINDINGS:? Image quality:? This examination is limited by involuntary motion artifact.? ? ? BRAIN:? CSF spaces:? Ventricles are normal in size and shape.? Basal cisterns are patent.? No extra-axial fluid collections.? Brain:? There is abnormal diffusion-weighted signal seen within the right occipital lobe, with associated dark signal on the ADC map.? There is developing T2 weighted signal seen. ?There is a mild amount of hemosiderin deposition seen within this region, as on series 33, images 12 and 13. There is a mild degree of enhancement seen along the margins of this process, as on series 41, image 88. ? No intracranial bleeds or mass effects.? Dangelo-white matter interface is normal.? Brainstem appears normal.? Normal intravascular flow voids are present.? No abnormal intracranial enhancement.? Skull and face:? Calvarial marrow signal is normal.? Orbits appear normal.? Sinuses:? Mild mucosal thickening is seen within the ethmoid air cells.? There is moderate mucosal thickening within the left maxillary sinus.? Mild mucosal t hickening is seen elsewhere within the paranasal sinuses. ? BRAIN MR ANGIOGRAM:? Anterior circulation:? Intracranial internal carotid arteries are normal in size and enhancement.? The flow within the paired anterior cerebral arteries is normal and symmetric.? The flow within the middle cerebral arteries is normal and symmetric.? The anterior communicating artery is seen.? No stenoses, occlusions, or aneurysms.? Posterior circulation:? The visualized portions of the vertebral arteries demonstrate normal caliber, and join to form a normal appearing basilar artery.? The flow within the posterior cerebral arteries is normal and symmetric.? No stenoses, occlusions, or aneurysms.? ? NECK MR ANGIOGRAM:? Carotids:? Great vessels demonstrate a conventional anatomy as they arise from the aortic arch.? The origins of the common carotid arteries appear patent.? The calibers and courses of both common carotid arteries are normal.? The bifurcation regions appear normal bilaterally.? The internal carotid arteries demonstrate normal course and caliber. ? Posterior circulation:? The origins of the vertebral arteries appear patent.? More superior portions of both vertebral arteries demonstrate normal course and caliber, and join to form a normal appearing basilar artery.? Miscellaneous:? Subclavian arteries appear patent.? Pre-contrast images through the neck show no soft tissue abnormalities.? IMPRESSION:? ? BRAIN MRI:? Subacute right [employer]IDE [employer] SUPER[employer]OR territory infarction seen, with petechial hemo rrhage and apparent luxury perfusion. ? ? BRAIN MR ANGIOGRAM:? No significant intracranial arterial abnormality is seen.? ? ? NECK MR ANGIOGRAM:? Within the arteries of the neck, no hemodynamically si gnificant stenosis can be seen.?? ECG Data Attestation: I personally reviewed and interpreted this ECG as follows: Interpretation: Sinus rhythm Ventricular rate is 78 Normal axis Normal QRS QTC No ST T wave changes MDM Narrative Medical decision making narrative: The MRI report presented in this note is for reference purposes only. It was ordered by his eye doctor and performed yesterday and not during this ED visit. It does show what appears to be an acute CVA which is consistent with his presentation today. His only neurologic deficits is a visual field deficit in the upper left quadrant of both of his eyes. The rest of his NIH scale is unremarkable. Most likely his symptoms started greater than 1 week ago. He is not a candidate for tPA. Not a candidate for any intervention. But did have a discussion with Dr. Padron on-call with Internal Medicine and we discussed the benefits of admitting the patient to the hospital. Patient has had no prior history of atrial fibrillation on his EKG today he is in normal sinus rhythm. There would be of benefit of admitting him to the hospital for a period of card iac observation however we felt that this most likely would not result in any significant changes in the patient would require Holter monitor regardless as an outpatient. Patient has had an echocardiogram. He does not have a PFO. Patient is not anticoagulated. He did have the vasculature in his neck evaluated with the MRI. Patient's A1c is 8. He is hypertensive here in the emergency department however he has not taken his night blood pressure medications. After this discussion and was felt that there would be little benefit with admitting him to the hospital. I discuss this with the patient and his and he agreed. We will add Plavix to his current medication regimen. He was instructed to contact his primary doctor and also his mononitrotoluene operator for a follow-up to discuss a Holter monitor. He was given strict return precautions. Both he and his expressed understanding and agreement with plan. Discharge Plan Departure Patient Disposition: Home Clinical Impression: CVA (cerebral vascular accident) Instructions: DI for Stroke-Ischemic Activity Restrictions/Additional Instructions: I recommend that you continue to take all of your medications as directed. I also recommend you contact your primary doctor and also your mononitrotoluene operator tomorrow to discuss further workup. Return to the emergency department for any new or worsening symptoms. Prescriptions: New clopidogrel [Plavix] 75 mg tablet 75 mg PO DAILY Qty: 30 0RF No Action diazepam [Valium] 5 MG tablet 5 mg PO HS PRNQty: 0 metformin [Glucophage XR] 500 MG tablet extended release 24 hr 500 mg PO BID Qty: 0 carvedilol 25 mg tablet 25 mg PO BID lisinopril 5 mg tablet 10 mg PO DAILY glipizide 10 mg tablet 10 mg PO BID aspirin [Adult Low Dose Aspirin] 81 mg tablet,delayed release (DR/EC) 81 mg PO DAILY rosuvastatin 20 mg tablet 20 mg PO DAILY zolpidem 5 mg tablet 5 mg PO BEDTIME PRN melatonin 10 mg tablet 10 mg PO BEDTIME PRN insulin aspart U-100 [Novolog Flexpen U-100 Insulin] SUBCUT finasteride 5 mg tablet 5 mg PO QDAY Qty: 90 3RF terazosin 10 mg capsule 10 mg PO BEDTIME Qty: 90 3RF Referrals: Mary Luis, PASTOR [Primary Care Provider] - Stand Alone Forms: Patient Portal/API
[2022-06-12] MEDS: CLOPIDOGREL 75 MG TABLET 300 MG PO (21:17)
--- NOTE | 2022-06-12 21:19 | PC.NURSE ---
Pt reports chills, intermittent for past few weeks. Afebrile. Dr. Baldwin aware.
== END 2022-06-12 21:30 | disposition home or self-care (01) ==
PROVIDERS: Emergency Provider Emergency Medicine; PCP Student in an Organized Health Care Education/Training Program
DX: I63.9 Cerebral infarction, unspecified (principal); R29.701 NIHSS score 1; U07.1 COVID-19; R07.9 Chest pain, unspecified
CPT/HCPCS: 36415; 80053; 83036; 83690; 83735; 85025; 85610; 85730; 87635; 93005; 99284; C9803

== ENCOUNTER 2022-06-14 06:30 | Emergency (ER) | payer MEDICARE, OTHER, SELFPAY ==
[2022-06-14] VITALS (69 sets, daily range): BP systolic 98–195; BP diastolic 50–98; PULSE 88–151; RESP 18–34; TEMP 37.3–38.2; O2SAT 91–100; BMI 24.5
--- NOTE | 2022-06-14 06:34 | DI.RAD.S_ITS ---
PROCEDURE: XR CHEST 1V INDICATIONS: chest pain TECHNIQUE: One view of the chest was acquired. COMPARISON: [facility], CR, XR CHEST 2V, 05/31/2022, 15:07. FINDINGS: Surgical changes and devices: Aortic valve replacement Lungs and pleura: Lungs are clear. No pleural effusions or pneumothorax. Mediastinum: Mediastinal contours appear normal. Heart size is normal. Bones and chest wall: No suspicious bony lesions. Overlying soft tissues appear unremarkable. IMPRESSION: No acute cardiopulmonary findings Approved by: Sourav Anne M.D. on 06/14/2022 at 9:42
--- NOTE | 2022-06-14 07:18 | ED_ITS ---
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 Patient states pain started about 415 this morning he states it is substernal without radiation. Feels like a pressure with deep inspiration. He states nothing else seems to exacerbate it. Nothing seems to make it better. He is tried Tums, carbonated water, he thought that it might be indigestion he had similar episode prior many years ago. Patient denies fevers. He is felt chilled this past week. He denies dyspnea but states that he feels like he is taking shallow breaths because of discomfort. Denies nausea or vomiting, no diarrhea constipation, no urinary symptoms. He is noted slightly increased swelling in left versus right lower extremity. Patient was noted to have had stroke on MRI on Thursday the 2022. He had had headache with aura and some visual changes approximately 3 weeks ago he saw optometry they ordered an MRI with contrast stroke protocol and to have a subacute right [employer] infarct with petechial hemorrhage and luxury perfusion, angiogram was negative of the brain and neck with no hemodynamically significant stenosis. Patient at that time was had Plavix added onto his medications. Patient also notes that he had congestive symptoms upper respiratory infection type symptoms approximately 3 weeks ago he home tested for COVID was negative but tested positive for COVID at his ER visit on 06/12/2022. He would had an echo in 2020 showed EF of 60 65%, has a prosthetic aortic valve with mild LVH. Patient states no known drug allergies. He is had aortic valve replaced in 2018, cholecystectomy in the 1980s. No tobacco, occasional alcohol, no illicit. Mary Luis is his primary care. Dr. Cowan is his second shift supervisor. Related Data Home Medications Medication Instructions Recorded Confirmed diazepam 5 mg tablet (Valium) 5 mg PO HS PRN n/a ##0 12/14/15 06/14/22 metformin 500 mg tablet,extended 500 mg PO BID ##0 12/14/15 12/04/21 release 24 hr (Glucophage XR) aspirin 81 mg tablet,delayed 81 mg PO DAILY 05/27/18 06/14/22 release (Adult Low Dose Aspirin) carvedilol 25 mg tablet 25 mg PO BID 05/27/18 06/14/22 glipizide 10 mg tablet 10 mg PO BID 05/27/18 06/14/22 lisinopril 5 mg tablet 10 mg PO DAILY 05/27/18 06/14/22 insulin aspart U-100 [Novolog SUBCUT 10/23/21 12/04/21 FlexPen U-100 Insulin] melatonin 10 mg tablet 10 mg PO BEDTIME PRN 10/23/21 12/04/21 rosuvastatin 20 mg tablet 20 mg PO DAILY 10/23/21 12/04/21 zolpidem 5 mg tablet 5 mg PO BEDTIME PRN 10/23/21 12/04/21 Previous Rx's Medication Instructions Recorded finasteride 5 mg tablet 5 mg PO QDAY #90 tabs 10/23/21 terazosin 10 mg capsule 10 mg PO BEDTIME #90 caps 10/23/21 clopidogrel 75 mg tablet (Plavix) 75 mg PO DAILY #30 tabs 06/12/22 Allergies Allergy/AdvReac Type Severity Reaction Status Date / Time No Known Drug Allergies Allergy Verified 05/31/22 14:25 Review of Systems Review of Systems ROS Unobtainable: All systems reviewed & are unremarkable except as noted in HPI and below Patient History Medical History BPH w urinary obs/LUTS History of anemia History of arthritis History of asthma History of BPH History of urinary retention Hx of diabetes mellitus Hx of essential hypertension Hx of renal calculi Hx of valvular heart disease Hypertension Incomplete bladder emptying Insomnia (~2007) Obstructive sleep apnea of adult (~2007) Snoring (~2013) Surgical History Hx of cholecystectomy Hx of hernia repair Family History Mother Cancer CAD (coronary artery disease) Diabetes mellitus Hearing impairment Hyperlipidemia Hypertension Thyroid disorder UTI (urinary tract infection) Father CVA (cerebral vascular accident) Renal failure Parkinson disease Social History marital status: details: polina Root, lives in [place] number of children: 0 household members: spouse lives independently: Yes caregiver/support person: No housing: house Smoking Status: Former smoker Tobacco: How many years used: 8 alcohol intake: current caffeine: Yes Type(s) of exercise: walking Smoking Status: Former smoker tobacco type: vaping alcohol intake frequency: holidays/special occasions only Substance Use Type: marijuana Exam Narrative Exam Narrative: GEN: well nourished, well appearing male, alert and oriented x 3, patient appears to be in mild distress. Patient feels warm to touch. HEENT: Atraumatic, pupils are equal round reactive to light, extraocular movements are intact, nares are clear. HEART: Slightly tachycardic but Regular rate and rhythm with 3/6 systolic ejection murmur, no clicks, rubs. Pulses are equal in upper and lower extremities. Trace pedal edema bilaterally. Nontender to palpation in anterior chest. LUNGS:Lungs clear to auscultation, no wheezes, rales, crackles, chest moves symmetrically, no tachypnea or accessory muscle use. ABD:bowel sounds normal, soft, non-tender, no guarding, rebound, rigidity, no masses noted, no hepatosplenomegaly :No CVA tenderness MSCL: Non-tender, full range of motion, normal gait NEURO:CN 2-12 intact, sensation normal SKIN: No rash, erythema or other skin changes. Initial Vital Signs Initial Vital Signs: Vital Signs Pulse Rate 112 H 06/14/22 06:43 Respiratory Rate 29 H 06/14/22 06:43 Blood Pressure 189/98 H 06/14/22 06:43 Pulse Oximetry 99 06/14/22 06:43 Scores HEART Score Heart Score history: Slightly Suspicious Heart Score EKG: Non-Specific repolarization disturbance Heart Score Age: > or = 65 years old Heart Score risk factors: > 3 risk factors or hx of atherosclerotic disease PERC Score Age greater than or equal to 50 years: Yes Heart rate greater than or equal to 100 bpm: Yes Room Air O2 Sat less than 95%: No Unilateral leg swelling: Yes Recent trauma or surgery: No Hemoptysis: No Prior PE or DVT: No Hormone Use: No Total PERC Score: 3 Course Orders Ordered: ED Orders 06/14/22 12:44 Trop I [Troponin I] Q6H 06/14/22 14:52 Partial Thromboplastin Time Q6H 06/14/22 15:31 EKG-12 Lead Routine 06/14/22 16:03 PTT [Partial Thromboplastin Time] Stat Discontinued Medications Acetaminophen (Acetaminophen 325 Mg Tablet) 975 mg PO NOW ONE Stop: 06/14/22 17:20 Last Admin: 06/14/22 17:32 Dose: 975 mg Documented By: AT Aspirin (Aspirin 81 Mg Chew Tab) 324 mg PO NOW ONE Stop: 06/14/22 08:38 Last Admin: 06/14/22 09:02 Dose: 324 mg Documented By: FREDO Atorvastatin Calcium (Atorvastatin 20 Mg Tablet) 80 mg PO DAILY BHASKAR Last Admin: 06/14/22 11:03 Dose: 80 mg Documented By: DARON Fentanyl (Fentanyl 100 Mcg/2 Ml Inj) 25 mcg IV NOW ONE Stop: 06/14/22 10:29 Last Admin: 06/14/22 10:38 Dose: 25 mcg Documented By: DARON Fentanyl (Fentanyl 100 Mcg/2 Ml Inj) 50 mcg IV Q1H PRN PRN Reason: Pain, Severe (7-10) Last Admin: 06/14/22 14:58 Dose: 50 mcg Documented By: JUAN JOSE Heparin Sodium (Porcine) (Heparin 5,000 Unit/Ml Vial) 4,000 unit IV NOW ONE Stop: 06/14/22 08:34 Last Admin: 06/14/22 09:01 Dose: 4,000 unit Documented By: DARON Heparin Sodium (Porcine) (Heparin 5,000 Unit/Ml Vial) 3,000 unit IV NOW ONE Stop: 06/14/22 16:26 Last Admin: 06/14/22 16:30 Dose: 3,000 unit Documented By: JOVON Sodium Chloride (Normal Saline 0.9%) 1,000 mls @ 1,000 mls/hr IV BOLUS ONE Stop: 06/14/22 08:41 Last Infusion: 06/14/22 09:40 Dose: 0 mls/hr Documented By: Admin: 06/14/22 07:57 Dose: 1,000 mls/hr Documented By: DARON Heparin Sodium/Dextrose (Heparin Drip) 25,000 unit in 500 mls @ 16.547 mls/hr IV CONT BHASKAR; Protocol Last Titration: 06/14/22 16:31 Dose: 13.42 units/kg/hr, 18.5 mls/hr Documented By: Admin: 06/14/22 09:02 Dose: 12 units/kg/hr, 16.547 mls/hr Documented By: [facility] Nitroglycerin (Nitroglycerin) 50 mg in 250 mls @ 1.5 mls/hr IV TITRATE BHASKAR; Protocol Last Titration: 06/14/22 13:59 Dose: 15 mcg/min, 4.5 mls/hr Documented By: Titration: 06/14/22 11:48 Dose: 10 mcg/min, 3 mls/hr Documented By: Admin: 06/14/22 09:54 Dose: 5 mcg/min, 1.5 mls/hr Documented By: [facility] Sodium Chloride (Normal Saline 0.9%) 1,000 mls @ 150 mls/hr IV CONT BHASKAR Last Infusion: 06/14/22 17:15 Dose: 0 mls/hr Documented By: Infusion: 06/14/22 13:24 Dose: 150 mls/hr Documented By: Infusion: 06/14/22 12:54 Dose: 999 mls/hr Documented By: Admin: 06/14/22 12:49 Dose: 150 mls/hr Documented By: AT Ketorolac Tromethamine (Ketorolac 30 Mg/Ml Vial) 15 mg IV NOW ONE Stop: 06/14/22 07:44 Last Admin: 06/14/22 07:57 Dose: 15 mg Documented By: [facility] Lorazepam (Lorazepam 0.5 Mg Tablet) 0.5 mg PO NOW ONE Stop: 06/14/22 08:14 Last Admin: 06/14/22 08:27 Dose: 0.5 mg Documented By: [facility] Metoprolol Tartrate (Metoprolol Tartrate 5 Mg/5 Ml Inj) 5 mg IV NOW ONE Stop: 06/14/22 15:37 Last Admin: 06/14/22 15:45 Dose: 5 mg Documented By: AT Metoprolol Tartrate (Metoprolol Tartrate 5 Mg/5 Ml Inj) 5 mg IV Q5M [facility] Stop: 06/14/22 17:11 Last Admin: 06/14/22 17:33 Dose: 5 mg Documented By: Admin: 06/14/22 17:20 Dose: 5 mg Documented By: Admin: 06/14/22 17:07 Dose: 5 mg Documented By: AT Nitroglycerin (Nitroglycerin 0.4 Mg Sl Tab) 0.4 mg SL [id number] PRN PRN Reason: Chest Pain Last Admin: 06/14/22 09:30 Dose: 0.4 mg Documented By: Admin: 06/14/22 09:17 Dose: 0.4 mg Documented By: DARON Consultations Consultation #1: Dr. Myers, cardiology. Time: 10:32 Vital Signs Vital signs: Vital Signs - 8 hr 06/14/22 11:00 06/14/22 11:00 06/14/22 11:10 Temperature Pulse Rate 93 H 95 H Respiratory Rate 22 26 H Blood Pressure 119/66 Pulse Oximetry 91 92 Oxygen Delivery Method Room Air 06/14/22 11:10 06/14/22 11:20 06/14/22 11:20 Temperature Pulse Rate 92 H Respiratory Rate 27 H Blood Pressure 108/58 L 112/62 Pulse Oximetry 92 Oxygen Delivery Method Room Air 06/14/22 11:30 06/14/22 11:30 06/14/22 11:40 Temperature Pulse Rate 90 90 Respiratory Rate 21 23 Blood Pressure 111/56 L Pulse Oximetry 93 93 Oxygen Delivery Method Room Air 06/14/22 11:40 06/14/22 11:50 06/14/22 11:50 Temperature Pulse Rate 90 Respiratory Rate 22 Blood Pressure 112/59 L 114/57 L Pulse Oximetry 94 Oxygen Delivery Method 06/14/22 12:00 06/14/22 12:00 06/14/22 12:10 Temperature Pulse Rate 88 92 H Respiratory Rate 22 19 Blood Pressure 106/59 L Pulse Oximetry 94 94 Oxygen Delivery Method Room Air 06/14/22 12:10 06/14/22 12:20 06/14/22 12:20 Temperature Pulse Rate 92 H Respiratory Rate 18 Blood Pressure 114/60 122/61 Pulse Oximetry 92 Oxygen Delivery Method 06/14/22 12:30 06/14/22 12:30 06/14/22 12:40 Temperature Pulse Rate 90 92 H Respiratory Rate 24 22 Blood Pressure 119/64 Pulse Oximetry 92 94 Oxygen Delivery Method Room Air 06/14/22 12:40 06/14/22 12:50 06/14/22 12:50 Temperature Pulse Rate 92 H Respiratory Rate 21 Blood Pressure 116/64 121/65 Pulse Oximetry 93 Oxygen Delivery Method 06/14/22 13:00 06/14/22 13:00 06/14/22 13:10 Temperature Pulse Rate 94 H 94 H Respiratory Rate 24 23 Blood Pressure 122/65 Pulse Oximetry 93 95 Oxygen Delivery Method Room Air 06/14/22 13:10 06/14/22 13:20 06/14/22 13:20 Temperature Pulse Rate 103 H Respiratory Rate 30 H Blood Pressure 130/69 132/70 Pulse Oximetry Oxygen Delivery Method 06/14/22 13:30 06/14/22 13:30 06/14/22 13:40 Temperature Pulse Rate 95 H 93 H Respiratory Rate 24 24 Blood Pressure 133/68 Pulse Oximetry 99 100 Oxygen Delivery Method Room Air 06/14/22 13:40 06/14/22 13:50 06/14/22 13:50 Temperature Pulse Rate 93 H Respiratory Rate 18 Blood Pressure 130/69 127/63 Pulse Oximetry 99 Oxygen Delivery Method 06/14/22 14:00 06/14/22 14:00 06/14/22 14:10 Temperature Pulse Rate 95 H Respiratory Rate 25 H Blood Pressure 127/68 142/73 H Pulse Oximetry 100 Oxygen Delivery Method Room Air 06/14/22 14:10 06/14/22 14:20 06/14/22 14:20 Temperature Pulse Rate 97 H 95 H Respiratory Rate 28 H 28 H Blood Pressure 137/75 Pulse Oximetry 99 99 Oxygen Delivery Method 06/14/22 14:30 06/14/22 14:30 06/14/22 14:40 Temperature Pulse Rate 94 H Respiratory Rate 25 H Blood Pressure 135/77 125/76 Pulse Oximetry 98 Oxygen Delivery Method 06/14/22 14:40 06/14/22 14:50 06/14/22 14:50 Temperature Pulse Rate 94 H 97 H Respiratory Rate 28 H 27 H Blood Pressure 140/79 Pulse Oximetry 98 94 Oxygen Delivery Method Room Air 06/14/22 15:00 06/14/22 15:00 06/14/22 15:10 Temperature Pulse Rate 95 H 101 H Respiratory Rate 25 H 23 Blood Pressure 135/77 Pulse Oximetry 98 97 Oxygen Delivery Method 06/14/22 15:10 06/14/22 15:20 06/14/22 15:20 Temperature Pulse Rate 102 H Respiratory Rate 25 H Blood Pressure 135/66 137/66 Pulse Oximetry 98 Oxygen Delivery Method Room Air 06/14/22 15:30 06/14/22 15:30 06/14/22 15:40 Temperature Pulse Rate 117 H 135 H Respiratory Rate 26 H 30 H Blood Pressure 144/77 H Pulse Oximetry 98 98 Oxygen Delivery Method 06/14/22 15:40 06/14/22 15:49 06/14/22 15:49 Temperature Pulse Rate 109 H Respiratory Rate 27 H Blood Pressure 133/67 132/70 Pulse Oximetry 98 Oxygen Delivery Method 06/14/22 15:50 06/14/22 15:50 06/14/22 16:00 Temperature Pulse Rate 114 H Respiratory Rate 28 H Blood Pressure 138/62 134/61 Pulse Oximetry 98 Oxygen Delivery Method 06/14/22 16:00 06/14/22 16:10 06/14/22 16:10 Temperature Pulse Rate 109 H 101 H Respiratory Rate 31 H 28 H Blood Pressure 135/61 Pulse Oximetry 98 97 Oxygen Delivery Method 06/14/22 16:20 06/14/22 16:20 06/14/22 16:30 Temperature 99.5 F Pulse Rate 106 H Respiratory Rate 28 H Blood Pressure 124/66 Pulse Oximetry 97 Oxygen Delivery Method 06/14/22 17:20 06/14/22 16:30 06/14/22 16:30 Temperature 100.8 F H Pulse Rate 123 H Respiratory Rate 25 H Blood Pressure 112/65 Pulse Oximetry 98 Oxygen Delivery Method Room Air 06/14/22 16:40 06/14/22 16:40 06/14/22 16:50 Temperature Pulse Rate 125 H Respiratory Rate 28 H Blood Pressure 127/70 140/67 Pulse Oximetry 97 Oxygen Delivery Method 06/14/22 16:50 06/14/22 17:00 06/14/22 17:01 Temperature Pulse Rate 129 H 151 H 134 H Respiratory Rate 31 H 32 H 26 H Blood Pressure Pulse Oximetry 98 98 99 Oxygen Delivery Method Room Air 06/14/22 17:01 06/14/22 17:10 06/14/22 17:10 Temperature Pulse Rate 128 H Respiratory Rate 31 H Blood Pressure 195/82 H 141/80 H Pulse Oximetry 99 Oxygen Delivery Method 06/14/22 17:20 06/14/22 17:20 06/14/22 17:30 Temperature Pulse Rate 134 H Respiratory Rate 34 H Blood Pressure 144/74 H 139/67 Pulse Oximetry 98 Oxygen Delivery Method 06/14/22 17:30 06/14/22 17:40 06/14/22 17:40 Temperature Pulse Rate 99 H 100 H Respiratory Rate 32 H 30 H Blood Pressure 125/65 Pulse Oximetry 98 97 Oxygen Delivery Method Room Air MDM - Chest Pain Lab Data 06/14/22 06:50 06/14/22 06:50 Labs: Lab Results 06/14/22 06/14/22 06/14/22 Range/Units 06:50 06:50 06:50 WBC 13.9 H D (4.5-11.0) X10^3/uL RBC 4.18 L (4.5-5.9) X10^6/uL Hgb 10.7 L (13.5-17.5) g/dL Hct 33.0 L (41-53) % MCV 78.9 L (80-100) fL MCH 25.7 L (26-34) PG MCHC 32.5 (30-36) % RDW 16.0 H (11.6-14.8) % Plt Count 264 (150-400) X10^3/uL Neut % (Auto) 87.1 H (50-75) % Lymph % (Auto) 7.2 L (25-40) % Caldwell % (Auto) 5.5 (3-14) % Eos % (Auto) 0.1 L (2-4) % Baso % (Auto) 0.1 (0-2) % Neut # (Auto) 12263 H (4217-5708) /uL Lymph # (Auto) 1000 L (9067-1563) /uL Caldwell # (Auto) 800 (0-900) /uL Eos # (Auto) 0 (0-450) /uL Baso # (Auto) 0 (0-100) /uL PT (10.1-12.7) SECONDS INR (0.9-1.3) APTT (26-36) SECONDS D-Dimer (<500) ng/ml Sodium 128 L (137-145) mmol/L Potassium 3.7 (3.4-5.1) mmol/L Chloride 90 L (98-107) mmol/L Carbon Dioxide 27 (22-32) mmol/L BUN 12 (9-20) mg/dL Creatinine 0.74 (0.66-1.25) mg/dL Estimated GFR > 60 (>60) mL/min BUN/Creatinine Ratio 16.2 (6-22) Glucose 192 H (80-110) mg/dL Lactate (0.7-2.1) mmol/L Calcium 8.8 (8.4-10.2) mg/dL Magnesium 1.5 L (1.6-2.3) mg/dL Total Bilirubin 1.1 (0.2-1.3) mg/dL AST 34 (17-59) IU/L ALT 27 (<50) IU/L Alkaline Phosphatase 153 H (38-126) U/L Total Creatine Kinase 195 H (55-170) U/L CK-MB (CK-2) 7.17 H (<2.37) ng/mL CK-MB (CK-2) Rel Index 3.7 (1.5-5.0) % Troponin I 3.190 H* (0.01-0.034) ng/mL NT-Pro-B Natriuret Pep (<125) pg/mL Total Protein 7.7 (6.3-8.2) g/dL Albumin 3.8 (3.5-5.0) g/dL Globulin 3.9 (1.7-4.1) g/dL Albumin/Globulin Ratio 1.0 (1.0-2.8) Lipase 74 (23-300) U/L Procalcitonin (<0.5) ng/mL Urine RBC (0-5/HPF) Urine WBC (0-5/HPF) Ur Squamous Epith Cells (0-5/HPF) Urine Bacteria (None) Ur Culture Indicated? SARS-CoV-2 (PCR) (Negative) 06/14/22 06/14/22 06/14/22 Range/Units 06:50 06:50 06:50 WBC (4.5-11.0) X10^3/uL RBC (4.5-5.9) X10^6/uL Hgb (13.5-17.5) g/dL Hct (41-53) % MCV (80-100) fL MCH (26-34) PG MCHC (30-36) % RDW (11.6-14.8) % Plt Count (150-400) X10^3/uL Neut % (Auto) (50-75) % Lymph % (Auto) (25-40) % Caldwell % (Auto) (3-14) % Eos % (Auto) (2-4) % Baso % (Auto) (0-2) % Neut # (Auto) (0965-0849) /uL Lymph # (Auto) (9094-3503) /uL Caldwell # (Auto) (0-900) /uL Eos # (Auto) (0-450) /uL Baso # (Auto) (0-100) /uL PT (10.1-12.7) SECONDS INR (0.9-1.3) APTT (26-36) SECONDS D-Dimer 1800 H (<500) ng/ml Sodium (137-145) mmol/L Potassium (3.4-5.1) mmol/L Chloride (98-107) mmol/L Carbon Dioxide (22-32) mmol/L BUN (9-20) mg/dL Creatinine (0.66-1.25) mg/dL Estimated GFR (>60) mL/min BUN/Creatinine Ratio (6-22) Glucose (80-110) mg/dL Lactate 1.1 (0.7-2.1) mmol/L Calcium (8.4-10.2) mg/dL Magnesium (1.6-2.3) mg/dL Total Bilirubin (0.2-1.3) mg/dL AST (17-59) IU/L ALT (<50) IU/L Alkaline Phosphatase (38-126) U/L Total Creatine Kinase (55-170) U/L CK-MB (CK-2) (<2.37) ng/mL CK-MB (CK-2) Rel Index (1.5-5.0) % Troponin I (0.01-0.034) ng/mL NT-Pro-B Natriuret Pep 1320 H (<125) pg/mL Total Protein (6.3-8.2) g/dL Albumin (3.5-5.0) g/dL Globulin (1.7-4.1) g/dL Albumin/Globulin Ratio (1.0-2.8) Lipase (23-300) U/L Procalcitonin 0.22 (<0.5) ng/mL Urine RBC (0-5/HPF) Urine WBC (0-5/HPF) Ur Squamous Epith Cells (0-5/HPF) Urine Bacteria (None) Ur Culture Indicated? SARS-CoV-2 (PCR) (Negative) 06/14/22 06/14/22 06/14/22 Range/Units 06:50 06:50 09:27 WBC (4.5-11.0) X10^3/uL RBC (4.5-5.9) X10^6/uL Hgb (13.5-17.5) g/dL Hct (41-53) % MCV (80-100) fL MCH (26-34) PG MCHC (30-36) % RDW (11.6-14.8) % Plt Count (150-400) X10^3/uL Neut % (Auto) (50-75) % Lymph % (Auto) (25-40) % Caldwell % (Auto) (3-14) % Eos % (Auto) (2-4) % Baso % (Auto) (0-2) % Neut # (Auto) (1160-3148) /uL Lymph # (Auto) (5845-2555) /uL Caldwell # (Auto) (0-900) /uL Eos # (Auto) (0-450) /uL Baso # (Auto) (0-100) /uL PT 14.7 H (10.1-12.7) SECONDS INR 1.3 (0.9-1.3) APTT 30 (26-36) SECONDS D-Dimer (<500) ng/ml Sodium (137-145) mmol/L Potassium (3.4-5.1) mmol/L Chloride (98-107) mmol/L Carbon Dioxide (22-32) mmol/L BUN (9-20) mg/dL Creatinine (0.66-1.25) mg/dL Estimated GFR (>60) mL/min BUN/Creatinine Ratio (6-22) Glucose (80-110) mg/dL Lactate (0.7-2.1) mmol/L Calcium (8.4-10.2) mg/dL Magnesium (1.6-2.3) mg/dL Total Bilirubin (0.2-1.3) mg/dL AST (17-59) IU/L ALT (<50) IU/L Alkaline Phosphatase (38-126) U/L Total Creatine Kinase (55-170) U/L CK-MB (CK-2) (<2.37) ng/mL CK-MB (CK-2) Rel Index (1.5-5.0) % Troponin I (0.01-0.034) ng/mL NT-Pro-B Natriuret Pep (<125) pg/mL Total Protein (6.3-8.2) g/dL Albumin (3.5-5.0) g/dL Globulin (1.7-4.1) g/dL Albumin/Globulin Ratio (1.0-2.8) Lipase (23-300) U/L Procalcitonin (<0.5) ng/mL Urine RBC 1-5/hpf (0-5/HPF) Urine WBC 1-5/hpf (0-5/HPF) Ur Squamous Epith Cells 0-1 /hpf (0-5/HPF) Urine Bacteria None seen (None) Ur Culture Indicated? Cult not indicated SARS-CoV-2 (PCR) (Negative) 06/14/22 06/14/22 06/14/22 Range/Units 09:30 09:30 12:44 WBC (4.5-11.0) X10^3/uL RBC (4.5-5.9) X10^6/uL Hgb (13.5-17.5) g/dL Hct (41-53) % MCV (80-100) fL MCH (26-34) PG MCHC (30-36) % RDW (11.6-14.8) % Plt Count (150-400) X10^3/uL Neut % (Auto) (50-75) % Lymph % (Auto) (25-40) % Caldwell % (Auto) (3-14) % Eos % (Auto) (2-4) % Baso % (Auto) (0-2) % Neut # (Auto) (6377-1909) /uL Lymph # (Auto) (7486-5505) /uL Caldwell # (Auto) (0-900) /uL Eos # (Auto) (0-450) /uL Baso # (Auto) (0-100) /uL PT (10.1-12.7) SECONDS INR (0.9-1.3) APTT (26-36) SECONDS D-Dimer (<500) ng/ml Sodium (137-145) mmol/L Potassium (3.4-5.1) mmol/L Chloride (98-107) mmol/L Carbon Dioxide (22-32) mmol/L BUN (9-20) mg/dL Creatinine (0.66-1.25) mg/dL Estimated GFR (>60) mL/min BUN/Creatinine Ratio (6-22) Glucose (80-110) mg/dL Lactate (0.7-2.1) mmol/L Calcium (8.4-10.2) mg/dL Magnesium (1.6-2.3) mg/dL Total Bilirubin (0.2-1.3) mg/dL AST (17-59) IU/L ALT (<50) IU/L Alkaline Phosphatase (38-126) U/L Total Creatine Kinase (55-170) U/L CK-MB (CK-2) (<2.37) ng/mL CK-MB (CK-2) Rel Index (1.5-5.0) % Troponin I 4.010 H* 4.180 H* (0.01-0.034) ng/mL NT-Pro-B Natriuret Pep (<125) pg/mL Total Protein (6.3-8.2) g/dL Albumin (3.5-5.0) g/dL Globulin (1.7-4.1) g/dL Albumin/Globulin Ratio (1.0-2.8) Lipase (23-300) U/L Procalcitonin (<0.5) ng/mL Urine RBC (0-5/HPF) Urine WBC (0-5/HPF) Ur Squamous Epith Cells (0-5/HPF) Urine Bacteria (None) Ur Culture Indicated? SARS-CoV-2 (PCR) Positive H (Negative) 06/14/22 06/14/22 Range/Units 14:52 16:03 WBC (4.5-11.0) X10^3/uL RBC (4.5-5.9) X10^6/uL Hgb (13.5-17.5) g/dL Hct (41-53) % MCV (80-100) fL MCH (26-34) PG MCHC (30-36) % RDW (11.6-14.8) % Plt Count (150-400) X10^3/uL Neut % (Auto) (50-75) % Lymph % (Auto) (25-40) % Caldwell % (Auto) (3-14) % Eos % (Auto) (2-4) % Baso % (Auto) (0-2) % Neut # (Auto) (0187-0869) /uL Lymph # (Auto) (6589-8616) /uL Caldwell # (Auto) (0-900) /uL Eos # (Auto) (0-450) /uL Baso # (Auto) (0-100) /uL PT (10.1-12.7) SECONDS INR (0.9-1.3) APTT 32 33 (26-36) SECONDS D-Dimer (<500) ng/ml Sodium (137-145) mmol/L Potassium (3.4-5.1) mmol/L Chloride (98-107) mmol/L Carbon Dioxide (22-32) mmol/L BUN (9-20) mg/dL Creatinine (0.66-1.25) mg/dL Estimated GFR (>60) mL/min BUN/Creatinine Ratio (6-22) Glucose (80-110) mg/dL Lactate (0.7-2.1) mmol/L Calcium (8.4-10.2) mg/dL Magnesium (1.6-2.3) mg/dL Total Bilirubin (0.2-1.3) mg/dL AST (17-59) IU/L ALT (<50) IU/L Alkaline Phosphatase (38-126) U/L Total Creatine Kinase (55-170) U/L CK-MB (CK-2) (<2.37) ng/mL CK-MB (CK-2) Rel Index (1.5-5.0) % Troponin I (0.01-0.034) ng/mL NT-Pro-B Natriuret Pep (<125) pg/mL Total Protein (6.3-8.2) g/dL Albumin (3.5-5.0) g/dL Globulin (1.7-4.1) g/dL Albumin/Globulin Ratio (1.0-2.8) Lipase (23-300) U/L Procalcitonin (<0.5) ng/mL Urine RBC (0-5/HPF) Urine WBC (0-5/HPF) Ur Squamous Epith Cells (0-5/HPF) Urine Bacteria (None) Ur Culture Indicated? SARS-CoV-2 (PCR) (Negative) Point of Care Testing Glucose POC 169 Urine Dip Bedside Urine Glucose Negative Bedside Urine Bilirubin - Negative Bedside Urine Ketone +/- 5 Urine Specific Russell 1.005 Bedside Urine Occult Blood +/- Bedside Urine pH 6.5 Bedside Urine Protein + 30 Bedside Urine Urobilinogen - Negative Bedside Urine Nitrite - Negative Bedside Urine Leukocytes - Negative Esterase Imaging Data Chest x-ray: Radiologist's Impression: Heart size normal. Previous TAVR noted. Lungs are well aerated and clear. No mass, infiltrate or atelectasis. No pleural effusion suspected. Osseous structures unremarkable. CT scan - chest: Radiologist's Impression: [address] [address] [address] Scan Report Signed Patient: Ben Sarmiento MR#: [id number] : 1950 Acct:[id number] Age/Sex: 71 / M Date of Service: 06/14/22 Loc: ED Accession Number: [id number] ?? Procedure: CT angio chest PE protocol Ordering Provider: Aimee Ruiz D.O. PROCEDURE:? CT ANGIO CHEST PE PROTOCOL ? INDICATIONS:? pleuritic chest pain, tachycardia, recent covid infxn ? TECHNIQUE:? After the administration of intravenous contrast, 2 mm thick sections acquired from the pulmonary apices to the posterior costophrenic angles.? 3-dimensional maximum intensity projection (MIP) coronal and sagittal reformats were then acquired through the thorax.? For radiation dose reduction, the following was used:? automated exposure control, adjustment of mA and/or kV according to patient size.? ? COMPARISON:? [facility], CT, CT ABDOMEN W CON, 02/24/2019, 12:56.? Outside Facility, RG, CTA CHEST ABDOMEN PELVIS ANGIO, 02/11/2018, 11:53.? [facility], CR, XR CHEST 1V, 06/14/2022, 6:31. ? FINDINGS:? Image quality:? Excellent.? ? Pulmonary arteries:? Pulmonary arteries are normal in size, and demonstrate no intraluminal filling defects to suggest central pulmonary embolism.? ? Lungs and pleura:? No lobar consolidation.? No pleural effusions or pneumothorax.? .? ? Mediastinum:? TAVR. no pericardial effusion.? Thoracic aorta is normal in caliber and enhancement.? Esophagus is normal in caliber ? Bones and chest wall:? Multilevel degenerative change of the visualized spine.? No axillary or supraclavicular adenopathy.? ? Abdomen:? Redemonstrated cyst at the pancreatic tail not substantially changed.? Bandlike areas of hypoenhancement within the spleen.? Prior cholecystectomy. ? IMPRESSION:? 1. No pulmonary embolism identified. 2. Bandlike areas of hypoenhancement within the spleen are nonspecific, could be related to normal/expected heterogeneous splenic enhancement within the arterial phase, or splenic infarcts.? CT of the abdomen with contrast could be obtained for further evaluation if indicated ? 3. Similar pancreatic cyst.? Could consider follow-up in 12 months or other interval at clinical discretion.? ? Dictated by: Johan Francois M.D. on 06/14/2022 at 8:39 ? ? Approved by: Johan Francois M.D. on 06/14/2022 at 8:50?? ECG Data Attestation: I personally reviewed and interpreted this ECG as follows: Prior ECG tracings: available for review Interpretation: Sinus tachycardia rate of 113p are 160 QRS 88 QTC of 438. No acute ST elevation noted. Patient has Q-wave in 3 and AVF. Patient has prior EKG from 06/12/2022 which appears similar accept for no tachycardia at that time. EKG 2. Sinus tachycardia rate of 107 WI 174 QRS 88 QTC of 483. Patient has possible mild depression but appears similar in 1 and aVL. Possible lateral leads difficult to tell on 1st EKG is there was some motion artifact in V5 V6. 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 That time patient had left-sided hemianopsia. Patient presents today with substernal chest pain that started this morning he slightly tachycardic and temperature is 100? F. Patient also recently started on aspirin and Plavix. CBC, CMP, lipase, troponin, BNP, D- dimer were obtained, EKG shows sinus tachycardia but no other acute ST changes. Patient has pleuritic type chest pain. Chest x-ray shows no acute change. Patient had blood cultures, lactate, procalcitonin added back on. Because of his cardiac history 1L bolus given but not started on a 30 cc/kilos bolus secondary risk for fluid overload but also patient has potential for pulmonary emboli and large fluid bolus would not necessarily. Patient notes Toradol was minimally helpful. He did ask for a antianxiety medication was being given a very small dose of Ativan orally. Patient labs show leukocytosis, chronic anemia at its baseline. Normal platelets. Leftward shift. D-dimer is elevated 1800 uneven age adjusted is elevated. Sodium is 128, chlorides 90 with potassium of 3 7 normal renal function electrolytes and a CO2 of 27. Glucose is 192. Mag slightly low 1.5, bilirubin, AST ALT are normal alk phos is 153 total CK is 195 with a trope of 3.19 and a BNP of 13 20- procalcitonin and negative lactate at 1.1. Patient had CT angio obtained no pulmonary emboli, patient has incidental finding of a pancreatic cyst and patient was updated and they were informed to have follow-up in the next year. Bandlike areas of hypoenhancement in the spleen nonspecific could be normal enhancement or splenic infarcts. Patient does not have any left lower abdominal discomfort or pain with palpation my suspicion that this is not the source of his pain with a positive troponin. Patient repeat EKG shows possible depression but no new elevation. Depression is consistent through EKG 1 and 2. Patient was given full-dose aspirin, heparin bolus for NSTEMI and nitro sublingual was helpful and chest pain improved from 7-10 so nitro drip was initiated. 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 Mild restriction of mitral leaflets with a mean gradient across the valve of 2.5 mm Hg suggesting mild mitral stenosis and mild mitral regurg. Bio prosthetic aortic valve, well-seated. Mild perivalvular regurgitation. Aorta ascending is mildly enlarged. Some mild luminal irregularity in echogenicity suggesting aortic atherosclerotic disease. LV wall thickness was borderline increased left ventricles normal size. No thrombus EF of 60 65% no focal wall motion abnormality. Left atrium moderately dilated. No pericardial effusion. Patient also had stress echo which showed no evidence of ischemia or infarction mild horizontal ST depression in anterolateral leads during recovery, no angina target heart rate was achieved hypertensive response to exercise. Discussed with patient could be NSTEMI patient does have vascular history has had a recent stroke but also has recent positive COVID infection with symptoms so myocarditis pericarditis is on differential although CTA does not an obvious pericardial effusion. Attempting to obtain echo for additional information. Plan for admission versus transfer after repeat troponin is obtained and consultation with Cardiology. Spoke with Dr. Myers, cardiology [facility] @ 1030a. Reviewed possibility of UT or pericarditis although no obvious pericardial effusion on CT angio. Patient also has cardiac risk factors. Troponin is trending upwards with active chest pain that is improved but not resolved by nitro drip. Patient's blood pressures have been soft. Discussed will add some fentanyl. Had tried Toradol without any improvement. Some ST depression unclear if this is new there was anterolateral changes noted on prior echo and stress echo in 03/28/2022. She will review echocardiogram from today if new focal wall motion abnormalities she would likely recommend transfer, if no new focal wall motion abnormalities states would likely be medical management and unlikely to take for cardiac catheterization and would not necessarily recommend transfer. Dr. Myers will callback with findings. Dr. Myers, cardiology [facility] @ 1230pm. Patient appears a bit hyperdynamic she recommends some hydration. No segmental or focal wall motion abnormalities. No pericardial effusion. She recommends continuing fluids, we discussed whether to continue nitro drip at this time will continue but did discuss if this could be affecting flow. Can give home Plavix. Unlikely to cardiac catheterization today but does feel probably appropriate for transfer for potential for decompensation as patient could be myocarditis secondary to COVID but does have some response in terms of pain with the nitrates so there is still concern for possible coronary artery disease. Agrees with plan to continue medical therapy with heparin drip. Call out to [facility] to see if they still have bed availability if not will continue to search at other facilities as there was significant blood shortages in the area. During patient's stay he is developed AFib and intermittently RVR. Repeat EKG was obtained rate was 116 QRS is 88 QTC is 464. Patient does not appear to have elevations. Patient had 1 dose of IV metoprolol which did seem to be helpful for rate control. He has not been hypotensive persistently. Heart rate is intermittently HR 90's to 140s and additional doses of IV metoprolol given. On recheck patient feels warm repeat temperature is 100.8? F was given Tylenol this may be adding to the irritability of his heart along with his current cardiac issues, patient does not have a known AFib history. He denies any worsening shortness of breath he states chest discomfort still there but not worsened pretty stable according to the patient. We did re-contact [facility] and let them know that he has been having atrial fibrillation intermittently elevated rate on checking to make sure still appropriate for his current bed placement and were told he is still appropriate for transfer and they still accept do not need to change bed assignment. Patient is been 90-110 range prior to transfer. Critical Care Time Critical Care Time Critical Care Time: Yes Total Critical Care Time: 50 Attestation: The high probability of a clinically significant, sudden or life threatening deterioration of the [] system(s) required my full and direct attention, intervention and personal management. The aggregate critical care time was [] minutes. This time is in addition to time spent performing reported procedures but includes the following: [x] Data Review and interpretation [x] Patient assessment and monitoring of vital signs [x] Documentation [x] Medication orders and management Discharge Plan Departure Patient Disposition: [facility] Clinical Impression: Non-ST elevation UT (NSTEMI), Pancreas cyst, COVID-19 virus infection, Chronic anemia, Atrial fibrillation with rapid ventricular response Prescriptions: No Action diazepam [Valium] 5 MG tablet 5 mg PO HS PRN (Reason: n/a) Qty: 0 metformin [Glucophage XR] 500 MG tablet extended release 24 hr 500 mg PO BID Qty: 0 clopidogrel [Plavix] 75 mg tablet 75 mg PO DAILY Qty: 30 0RF carvedilol 25 mg tablet 25 mg PO BID lisinopril 5 mg tablet 10 mg PO DAILY glipizide 10 mg tablet 10 mg PO BID aspirin [Adult Low Dose Aspirin] 81 mg tablet,delayed release (DR/EC) 81 mg PO DAILY rosuvastatin 20 mg tablet 20 mg PO DAILY zolpidem 5 mg tablet 5 mg PO BEDTIME PRN melatonin 10 mg tablet 10 mg PO BEDTIME PRN insulin aspart U-100 [Novolog Flexpen U-100 Insulin] SUBCUT finasteride 5 mg tablet 5 mg PO QDAY Qty: 90 3RF terazosin 10 mg capsule 10 mg PO BEDTIME Qty: 90 3RF Referrals: Mary Luis PA-C [Primary Care Provider] -
[2022-06-14 07:33] LABS: Add Manual Diff / Slide Review NO; Basophils Absolute Auto 0 /uL (0-100); Basophils Percent Auto 0.1 % (0-2); Eosinophils Absolute Auto 0 /uL (0-450); Eosinophils Percent Auto 0.1 % (2-4); Hemoglobin 10.7 g/dL (13.5-17.5); Lymphocytes Absolute Auto 1000 /uL (1100-4500); Lymphocytes Percent Auto 7.2 % (25-40); Mean Corpuscular HGB Conc 32.5 % (30-36); Mean Corpuscular Hemoglobin 25.7 PG (26-34); Mean Corpuscular Volume 78.9 fL (80-100); Monocytes Absolute Auto 800 /uL (0-900); Monocytes Percent Auto 5.5 % (3-14); Neutrophils Absolute Auto 12100 /uL (1500-7000); Neutrophils Percent Auto 87.1 % (50-75); Platelet Count 264 X10^3/uL (150-400); Red Blood Cell Count 4.18 X10^6/uL (4.5-5.9); White Blood Cell Count 13.9 X10^3/uL (4.5-11.0)
[2022-06-14 07:41] LABS: D Dimer 1800 ng/ml (<500)
[2022-06-14 07:52] LABS: Creatine Kinase 195 U/L (55-170)
[2022-06-14 07:54] LABS: Alanine Aminotransferase 27 IU/L (<50); Albumin 3.8 g/dL (3.5-5.0); Alkaline Phosphatase 153 U/L (38-126); Aspartate Aminotransferase 34 IU/L (17-59); BUN Creatinine Ratio 16.2 (6-22); Bilirubin Total 1.1 mg/dL (0.2-1.3); Blood Urea Nitrogen 12 mg/dL (9-20); Calcium 8.8 mg/dL (8.4-10.2); Carbon Dioxide 27 mmol/L (22-32); Chloride 90 mmol/L (98-107); Estimated Glomerular Filt Rate > 60 mL/min (>60); Globulin 3.9 g/dL (1.7-4.1); Glucose 192 mg/dL (80-110); HEMOLYSIS < 15 (0-50); Lipase 74 U/L (23-300); Magnesium 1.5 mg/dL (1.6-2.3); Potassium 3.7 mmol/L (3.4-5.1); Sodium 128 mmol/L (137-145); Total Protein 7.7 g/dL (6.3-8.2)
[2022-06-14] MEDS: KETOROLAC 30 MG/ML VIAL 15 MG IV (07:57)
[2022-06-14] MEDS: SODIUM CHLORIDE 0.9% 1,000 ML 1000 ML IV (07:57)
--- NOTE | 2022-06-14 07:57 | DI.CT.S_ITS ---
PROCEDURE: CT ANGIO CHEST PE PROTOCOL INDICATIONS: pleuritic chest pain, tachycardia, recent covid infxn TECHNIQUE: After the administration of intravenous contrast, 2 mm thick sections acquired from the pulmonary apices to the posterior costophrenic angles. 3-dimensional maximum intensity projection (MIP) coronal and sagittal reformats were then acquired through the thorax. For radiation dose reduction, the following was used: automated exposure control, adjustment of mA and/or kV according to patient size. COMPARISON: [facility], CT, CT ABDOMEN W CON, 02/24/2019, 12:56. Outside Facility, RG, CTA CHEST ABDOMEN PELVIS ANGIO, 02/11/2018, 11:53. [facility], CR, XR CHEST 1V, 06/14/2022, 6:31. FINDINGS: Image quality: Excellent. Pulmonary arteries: Pulmonary arteries are normal in size, and demonstrate no intraluminal filling defects to suggest central pulmonary embolism. Lungs and pleura: No lobar consolidation. No pleural effusions or pneumothorax. . Mediastinum: TAVR. no pericardial effusion. Thoracic aorta is normal in caliber and enhancement. Esophagus is normal in caliber Bones and chest wall: Multilevel degenerative change of the visualized spine. No axillary or supraclavicular adenopathy. Abdomen: Redemonstrated cyst at the pancreatic tail not substantially changed. Bandlike areas of hypoenhancement within the spleen. Prior cholecystectomy. IMPRESSION: 1. No pulmonary embolism identified. 2. Bandlike areas of hypoenhancement within the spleen are nonspecific, could be related to normal/expected heterogeneous splenic enhancement within the arterial phase, or splenic infarcts. CT of the abdomen with contrast could be obtained for further evaluation if indicated 3. Similar pancreatic cyst. Could consider follow-up in 12 months or other interval at clinical discretion. Dictated by: Johan Francois M.D. on 06/14/2022 at 8:39 Approved by: Johan Francois M.D. on 06/14/2022 at 8:50
[2022-06-14 08:07] LABS: CKMB % Relative Index 3.7 % (1.5-5.0); Creatine Kinase MB 7.17 ng/mL (<2.37)
[2022-06-14] MEDS: LORazepam 0.5 MG TABLET PO (08:27)
[2022-06-14 08:38] LABS: Lactate (Lactic Acid) 1.1 mmol/L (0.7-2.1)
[2022-06-14 08:48] LABS: NT-proBNP (BNP-Adult 18+) 1320 pg/mL (<125)
[2022-06-14 08:56] LABS: Procalcitonin 0.22 ng/mL (<0.5)
--- NOTE | 2022-06-14 08:58 | DI.ECHO.S_ITS ---
[facility] +---------+ : : [address] : : : : [id number] : : : : Phone: [phone]+ Echocardiogram Report + + :Name: ESAU SANTIAGO Study Date: 06/14/2022 Height: 66 in : :[facility] ReadingLocation: Weight: 152 lb : : Gender: Male BSA: 1.8 m2 : :: 1950 Age: 71 yrs BP: 112/56 mmHg: :Reason For Study: NSTEMI, COVID POSITIVE : :Ordering Physician: LUIS, : :ERASTO Performed By: Arianna Lam : :Referring: ERASTO SMITH : + + Interpretation Summary There is mild concentric left ventricular hypertrophy. The left ventricle is hyperdynamic. The ejection fraction is estimated to be 70-75%. There are no focal wall motion abnormalities. Diastolic function could not be accurately assessed due to unobtainable data. The right ventricle is normal in size and function. There is mild mitral stenosis. There is a bioprosthetic aortic valve that is well seated. Pulmonary artery pressures cannot be estimated because of the lack of a measurable TR jet velocity. The ascending aorta is mildly enlarged. Compared to the prior study dated 03/28/2022, the left ventricle is now hyperdynamic. Procedure: A two-dimensional transthoracic echocardiogram with color flow and Doppler was performed. The study quality was technically adequate. Comparison is made with the echocardiogram of 03/28/2022. The patient was in sinus tachycardia with heart rates between 96-103 bpm during the exam. Left Ventricle: The left ventricular cavity is small. There is mild concentric left ventricular hypertrophy. An intracavitary gradient is suspected. The left ventricle is hyperdynamic. The ejection fraction is estimated to be 70-75%. There are no focal wall motion abnormalities. Diastolic function could not be accurately assessed due to unobtainable data. Right Ventricle: The right ventricle is normal in size and function. Atria: The left atrium is borderline dilated. Right atrial size is normal. There is no Doppler evidence for an interatrial shunt. Mitral Valve: The mitral valve is normal in structure and function. The mitral valve mean gradient is 3.5 mmHg. There is mild mitral stenosis. There is no mitral regurgitation noted. Aortic Valve: There is a bioprosthetic aortic valve. The peak aortic velocity is 3.2 m/sec. The aortic valve mean gradient is 24 mmHg. The calculated aortic valve area is 1.2 cm2. There is trace aortic regurgitation. Tricuspid Valve: The tricuspid valve is normal in structure and function. There is trace tricuspid regurgitation. Pulmonary artery pressures cannot be estimated because of the lack of a measurable TR jet velocity. Pulmonic Valve: The pulmonic valve is not well seen, but is grossly normal. There is no pulmonic valvular regurgitation. Great Vessels: The aortic root is not well visualized. The ascending aorta is mildly enlarged. The IVC is of normal diameter and collapses greater than 50% with a sniff. This suggests a low right atrial pressure of 3 mm Hg. Pericardium/ Pleura There is no pericardial effusion. There is no pleural effusion. MMode/2D Measurements & Calculations LVIDd: 3.7 cm LVOT diam: 2.0 cm LVIDs: 2.1 cm asc Aorta Diam: 3.9 cm FS: 44.7 % Ao Arch Diam (Prox Trans): 2.6 cm IVSd: 1.1 cm LVPWd: 1.1 cm LV snider. diameter/BSA (cm/m^2): 2.1 LV sys. diameter/BSA (cm/m^2): 1.2 LA A2 area: 21.8 cm2 RA long axis: 4.9 cm LA A4 area: 19.8 cm2 RA area: 16.3 cm2 LA length (vol): 6.1 cm RA vol: 46.1 ml LA vol: 60.2 ml RA : 25.9 ml/m2 LA vol index: 33.8 ml/m2 IVC diam: 1.9 cm RVD1 (basal): 3.4 cm RVD2 (mid): 2.9 cm TAPSE: 1.9 cm Doppler Measurements & Calculations Ao V2 max: 322.8 cm/sec LVOT Max Davie: 122.3 cm/sec Ao V2 mean: 231.5 cm/sec LV V1 max P.0 mmHg Ao max P.7 mmHg LV V1 VTI: 20.7 cm Ao mean P.3 mmHg ANTHONY(I,D): 1.3 cm2 Ao V2 VTI: 51.5 cm ANTHONY(V,D): 1.2 cm2 sev ratio: 0.40 ANTHONY indexed to BSA (cm^2/m^2): 0.72 MV E max davie: 91.5 cm/sec PA V2 max: 106.4 cm/sec MV A max davie: 130.2 cm/sec PA V2 mean: 77.2 cm/sec MV E/A: 0.70 PA mean P.6 mmHg Med Peak E' Davie: 7.3 cm/sec PA pr(Accel): 36.2 mmHg E/E' med: 12.5 Lat Peak E' Davie: 7.0 cm/sec E/E' lat: 13.0 E/e' average: 12.7 MV dec time: 0.32 sec MVA(VTI): 2.6 cm2 MV V2 mean: 86.3 cm/sec SV(LVOT): 66.2 ml MV mean P.5 mmHg MV V2 VTI: 25.7 cm Reading Physician:12:21 PM
[2022-06-14 09:01] LABS: INR 1.3 (0.9-1.3); Prothrombin Time 14.7 SECONDS (10.1-12.7)
[2022-06-14] MEDS: HEPARIN 5,000 UNIT/ML VIAL 4000 UNIT IV (09:01)
[2022-06-14] MEDS: HEPARIN DRIP 25,000 UNIT/500 ML IV.SOLN 16.547 UNIT IV (09:02)
[2022-06-14] MEDS: ASPIRIN 81 MG CHEW TAB 324 MG PO (09:02)
[2022-06-14] MEDS: NITROGLYCERIN 0.4 MG SL TAB SL ×2 (09:17→09:30)
[2022-06-14 09:47] LABS: PTT Partial Thromboplastin Tim 30 SECONDS (26-36)
[2022-06-14] MEDS: NITROGLYCERIN 50 MG/250 ML INFUS..BTL IV (09:54)
[2022-06-14 10:14] LABS: COVID19 -Nasal RAPID POSITIVE (Negative)
--- NOTE | 2022-06-14 10:24 | PC.NURSE ---
Patient reports increase in chest pain 6-10/27 Dr Ruiz aware. Patient diaphoretic temp decrease to 99.1oral.
[2022-06-14 10:27] LABS: Bacteria Urine None Seen; Culture Indicated Urine Cult Not Indicated; RBC Urine 1-5/HPF (0-5/HPF); Squamous Epithelial Cell Urine 0-1 /HPF (0-5/HPF); WBC Urine 1-5/HPF (0-5/HPF)
[2022-06-14] MEDS: fentaNYL 100 MCG/2 ML INJ 25 MCG IV (10:38)
[2022-06-14] MEDS: ATORVASTATIN 20 MG TABLET 80 MG PO (11:03)
--- NOTE | 2022-06-14 11:41 | PC.NURSE ---
Pt alert and oriented x4/4, speaking in clear and coherent sentences. Moving extremities independently w/ normal bilateral radial and dorsalis pedis pulses. Assessed both IV sites, clean and dry. Verified IV medications running at charted rate. Updated pt and family on current plan of care.
[2022-06-14] MEDS: SODIUM CHLORIDE 0.9% 1,000 ML 150 ML IV (12:49)
--- NOTE | 2022-06-14 12:54 | PC.NURSE ---
Per Dr. Ruiz: bolus 500ml of fluids then continue at ordered rate of 150ml/hr.
--- NOTE | 2022-06-14 14:37 | PC.NURSE ---
Reached out to multiple hospitals to transfer patient for an NSTEMI. Possible acceptances to [facility] and and I've also reached out to [facility], [facility] and [facility] to get the patient on their waitlists. Was given the okay to call [facility] and put the patient in their system.
[2022-06-14] MEDS: fentaNYL 100 MCG/2 ML INJ 50 MCG IV (14:58)
[2022-06-14 15:20] LABS: PTT Partial Thromboplastin Tim 32 SECONDS (26-36)
--- NOTE | 2022-06-14 15:39 | PC.NURSE ---
Rounded on pt, reports improvement in the intensity of pain since latest medication administration. Noted changes on telemetry, pt appeared in afib, notified Dr. Ruiz and EKG called.
[2022-06-14] MEDS: METOPROLOL TARTRATE 5 MG/5 ML INJ IV ×4 (15:45→17:33)
[2022-06-14 16:21] LABS: PTT Partial Thromboplastin Tim 33 SECONDS (26-36)
[2022-06-14] MEDS: HEPARIN 5,000 UNIT/ML VIAL 3000 UNIT IV (16:30)
[2022-06-14] MEDS: ACETAMINOPHEN 325 MG TABLET 975 MG PO (17:32)
[2022-06-15 10:34] LABS: Enterococcus species Not Detected (Not Detect); Listeria monocytogenes Not Detected (Not Detect); Staphylococcus species Not Detected (Not Detect)
[2022-06-15 10:35] LABS: Acinetobacter baumannii Not Detected (Not Detect); Candida albicans Not Detected (Not Detect); Candida glabrata Not Detected (Not Detect); Candida krusei Not Detected (Not Detect); Candida parapsilosis Not Detected (Not Detect); Candida tropicalis Not Detected (Not Detect); E. coli Not Detected (Not Detect); Enterobacter cloacae complex Not Detected (Not Detect); Enterobacteriaceae species Not Detected (Not Detect); Haemophilus influenzae Not Detected (Not Detect); Neisseria meningitidis Not Detected (Not Detect); Proteus species Not Detected (Not Detect); Pseudomonas aeruginosa Not Detected (Not Detect); Serratia marcescens Not Detected (Not Detect); Streptococcus agalactiae (Gr B Not Detected (Not Detect); Streptococcus pneumonia Not Detected (Not Detect); Streptococcus pyogenes (Gr A) Not Detected (Not Detect); Streptococcus species Detected (Not Detect)
== END 2022-06-14 18:01 | disposition short-term general hospital (02) ==
PROVIDERS: Emergency Medicine; Emergency Provider Emergency Medicine; PCP Student in an Organized Health Care Education/Training Program
DX: I21.4 Non-ST elevation (NSTEMI) myocardial infarction (principal); K86.2 Cyst of pancreas; U07.1 COVID-19; D64.9 Anemia, unspecified; I48.91 Unspecified atrial fibrillation; Z95.2 Presence of prosthetic heart valve; Z79.01 Long term (current) use of anticoagulants
CPT/HCPCS: 36415; 71045; 71275; 80053; 81003; 81015; 82550; 82553; 82962; 83605; 83690; 83735; 83880; 84145; 84484; 85025; 85379; 85610; 85730; 87040; 87150; 87186; 87205; 87635; 93005; 93306; 96365; 96366; 96368; 96375; 96376; 99285; 99291; C9803; J1644; J1885; J3010; Q9967

== ENCOUNTER 2022-06-30 03:21 | Emergency (ER) | payer MEDICARE, OTHER, SELFPAY ==
--- NOTE | 2022-06-30 03:35 | DI.RAD.S_ITS ---
PROCEDURE: XR CHEST 1V INDICATIONS: chest pain TECHNIQUE: One view of the chest was acquired. COMPARISON: [facility], CR, XR CHEST 1V, 06/14/2022, 6:31. FINDINGS: Surgical changes and devices: Prosthetic heart valve is seen. Right-sided PICC line tip is in SVC. Lungs and pleura: Lungs are clear. No pleural effusions or pneumothorax. Mediastinum: Mediastinal contours appear normal. Heart size is normal. Bones and chest wall: No suspicious bony lesions. Overlying soft tissues appear unremarkable. IMPRESSION: No acute cardiopulmonary pathology. No discrepancies. Dictated by: Remi Navarro M.D. on 06/30/2022 at 8:00 Approved by: Remi Navarro M.D. on 06/30/2022 at 8:04
--- NOTE | 2022-06-30 03:35 | ED.CHESTPAIN ---
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 He states that he got up in the middle of the night to urinate and fell some substernal chest pain. He reports that he forgot to take his diltiazem before going to bed but he did take it prior to arrival. He denies any radiation of pain. He denies any shortness of breath. He feels like it is pressure. He denies any abdominal pain nausea vomiting or weakness. He was released from [facility] about 1 week ago after being diagnosed with endocarditis. He is on 6 weeks of IV antibiotics, appears to be Rocephin. He goes daily to the infusion center. PICC line is placed in his right arm. Related Data Home Medications Medication Instructions Recorded Confirmed metformin 500 mg tablet,extended 500 mg PO BID ##0 12/14/15 12/04/21 release 24 hr (Glucophage XR) aspirin 81 mg tablet,delayed 81 mg PO DAILY 05/27/18 06/14/22 release (Adult Low Dose Aspirin) glipizide 10 mg tablet 10 mg PO BID 05/27/18 06/14/22 lisinopril 5 mg tablet 10 mg PO DAILY 05/27/18 06/14/22 insulin aspart U-100 [Novolog SUBCUT 10/23/21 12/04/21 FlexPen U-100 Insulin] melatonin 10 mg tablet 10 mg PO BEDTIME PRN Insomnia 10/23/21 12/04/21 rosuvastatin 20 mg tablet 20 mg PO DAILY 10/23/21 12/04/21 Previous Rx's Medication Instructions Recorded finasteride 5 mg tablet 5 mg PO QDAY #90 tabs 10/23/21 Allergies Allergy/AdvReac Type Severity Reaction Status Date / Time No Known Drug Allergies Allergy Verified 05/31/22 14:25 Review of Systems Review of Systems ROS Unobtainable: All systems reviewed & are unremarkable except as noted in HPI and below Patient History Medical History BPH w urinary obs/LUTS History of anemia History of arthritis History of asthma History of BPH History of urinary retention Hx of diabetes mellitus Hx of essential hypertension Hx of renal calculi Hx of valvular heart disease Hypertension Incomplete bladder emptying Insomnia (~2007) Obstructive sleep apnea of adult (~2007) Snoring (~2013) Surgical History Hx of cholecystectomy Hx of hernia repair Family History Mother Cancer CAD (coronary artery disease) Diabetes mellitus Hearing impairment Hyperlipidemia Hypertension Thyroid disorder UTI (urinary tract infection) Father CVA (cerebral vascular accident) Renal failure Parkinson disease Social History marital status: details: polina Root, lives in [place] number of children: 0 household members: spouse lives independently: Yes caregiver/support person: No housing: house Smoking Status: Former smoker Tobacco: How many years used: 8 alcohol intake: current caffeine: Yes Type(s) of exercise: walking Smoking Status: Former smoker tobacco type: vaping alcohol intake frequency: holidays/special occasions only Substance Use Type: marijuana Exam Initial Vital Signs Initial Vital Signs: Vital Signs Temperature 97.5 F L 06/30/22 03:47 Pulse Rate 92 H 06/30/22 03:47 Respiratory Rate 16 06/30/22 03:47 Blood Pressure 158/90 H 06/30/22 03:47 Pulse Oximetry 97 06/30/22 03:47 Oxygen Delivery Method Room Air 06/30/22 03:47 GENERAL: Alert pleasant 1 old and in [no acute] distress. HEENT: Head atraumatic,EOMI, pupils reactive, face symmetric, [moist] mucous membranes CARDIOVASCULAR: Regular rate and rhythm without murmurs, rubs or gallops. RESPIRATORY: Breath sounds equal bilaterally, no wheezes rales or rhonchi. ABDOMEN: Soft, nontender. Normoactive bowel sounds all 4 quadrants. No guarding or rebound. EXTREMITIES: Normal range of motion, no clubbing or edema. Neurovascularly intact PICC line placed right NEUROLOGICAL: Alert and oriented x4.Normal gait and speech. SKIN: Warm, dry, no laceration, no petechiae, no rashes or lesions. Course Orders Ordered: ED Orders 06/30/22 EKG-12 Lead Routine 06/30/22 03:35 XR chest 1V Stat EKG-12 Lead Stat 06/30/22 03:45 Complete Blood Count AUTO DIFF Stat Comprehensive Metabolic Panel Stat D Dimer Stat Lipase Stat NT-proBNP (BNP-Adult 18+) Stat Troponin & CK Cardiac Panel Stat 06/30/22 05:03 CT angio chest PE protocol Stat 06/30/22 05:45 Troponin I Stat Vital Signs Vital signs: Vital Signs - 8 hr 06/30/22 03:47 Temperature 97.5 F L Pulse Rate 92 H Respiratory Rate 16 Blood Pressure 158/90 H Pulse Oximetry 97 Oxygen Delivery Method Room Air MDM - Chest Pain Lab Data 06/30/22 03:45 06/30/22 03:45 Labs: Lab Results 06/30/22 06/30/22 06/30/22 Range/Units 03:45 03:45 03:45 WBC 10.5 (4.5-11.0) X10^3/uL RBC 3.88 L (4.5-5.9) X10^6/uL Hgb 10.3 L (13.5-17.5) g/dL Hct 31.0 L (41-53) % MCV 80.0 (80-100) fL MCH 26.5 (26-34) PG MCHC 33.2 (30-36) % RDW 17.1 H (11.6-14.8) % Plt Count 287 (150-400) X10^3/uL Neut % (Auto) 76.1 H (50-75) % Lymph % (Auto) 14.4 L (25-40) % Latimer % (Auto) 5.9 (3-14) % Eos % (Auto) 3.0 (2-4) % Baso % (Auto) 0.6 (0-2) % Neut # (Auto) 8000 H (6660-3037) /uL Lymph # (Auto) 1500 (7769-0412) /uL Latimer # (Auto) 600 (0-900) /uL Eos # (Auto) 300 (0-450) /uL Baso # (Auto) 100 (0-100) /uL D-Dimer (<500) ng/ml Sodium 135 L (137-145) mmol/L Potassium 3.5 (3.4-5.1) mmol/L Chloride 100 (98-107) mmol/L Carbon Dioxide 27 (22-32) mmol/L BUN 15 (9-20) mg/dL Creatinine 0.62 L (0.66-1.25) mg/dL Estimated GFR > 60 (>60) mL/min BUN/Creatinine Ratio 24.2 H (6-22) Glucose 118 H (80-110) mg/dL Calcium 8.8 (8.4-10.2) mg/dL Total Bilirubin 0.4 (0.2-1.3) mg/dL AST 20 (17-59) IU/L ALT 20 (<50) IU/L Alkaline Phosphatase 121 (38-126) U/L Total Creatine Kinase 47 L (55-170) U/L CK-MB (CK-2) TNP CK-MB (CK-2) Rel Index TNP Troponin I 0.024 (0.01-0.034) ng/mL NT-Pro-B Natriuret Pep 784 H (<125) pg/mL Total Protein 7.5 (6.3-8.2) g/dL Albumin 3.8 (3.5-5.0) g/dL Globulin 3.7 (1.7-4.1) g/dL Albumin/Globulin Ratio 1.0 (1.0-2.8) Lipase 62 (23-300) U/L 06/30/22 06/30/22 Range/Units 03:45 05:45 WBC (4.5-11.0) X10^3/uL RBC (4.5-5.9) X10^6/uL Hgb (13.5-17.5) g/dL Hct (41-53) % MCV (80-100) fL MCH (26-34) PG MCHC (30-36) % RDW (11.6-14.8) % Plt Count (150-400) X10^3/uL Neut % (Auto) (50-75) % Lymph % (Auto) (25-40) % Latimer % (Auto) (3-14) % Eos % (Auto) (2-4) % Baso % (Auto) (0-2) % Neut # (Auto) (3418-3141) /uL Lymph # (Auto) (0773-7163) /uL Latimer # (Auto) (0-900) /uL Eos # (Auto) (0-450) /uL Baso # (Auto) (0-100) /uL D-Dimer 1503 H (<500) ng/ml Sodium (137-145) mmol/L Potassium (3.4-5.1) mmol/L Chloride (98-107) mmol/L Carbon Dioxide (22-32) mmol/L BUN (9-20) mg/dL Creatinine (0.66-1.25) mg/dL Estimated GFR (>60) mL/min BUN/Creatinine Ratio (6-22) Glucose (80-110) mg/dL Calcium (8.4-10.2) mg/dL Total Bilirubin (0.2-1.3) mg/dL AST (17-59) IU/L ALT (<50) IU/L Alkaline Phosphatase (38-126) U/L Total Creatine Kinase (55-170) U/L CK-MB (CK-2) CK-MB (CK-2) Rel Index Troponin I 0.023 (0.01-0.034) ng/mL NT-Pro-B Natriuret Pep (<125) pg/mL Total Protein (6.3-8.2) g/dL Albumin (3.5-5.0) g/dL Globulin (1.7-4.1) g/dL Albumin/Globulin Ratio (1.0-2.8) Lipase (23-300) U/L Imaging Data Chest x-ray: Radiologist's Impression: Preliminary report no active cardiopulmonary disease CT scan - chest: Radiologist's Impression: Report: No pulmonary embolus identified. Trace pericardial effusion uncertain significance. Previous TAVR and previous cholecystectomy. Unremarkable PICC line position. ECG Data Interpretation: EKG 1. Sinus rhythm rate 97 NV interval 158 QRS [address] changes EKG 2. Sinus rhythm rate 85 no changes from previous MDM Narrative Medical decision making narrative: Patient 71-year-old male history of recent endocarditis CVA with visual deficits presents today with chest discomfort. He took diltiazem prior to being in the ED he is currently in sinus rhythm with heart rate under 100. He reports that the heaviness and difficulty breathing he was experiences is now completely gone. No significant leukocytosis electrolyte abnormality, ISH or elevation of troponin. He has 2- troponins no EKG changes. Previously troponin was elevated at 4.18 today [address] angio was negative for pulmonary embolism. This is unlikely to be related to acute coronary syndrome. Possible he was tachycardic or had atrial fibrillation prior to arrival but while on the monitor he is in sinus and rate controlled. He is not had fever he receives IV antibiotics daily. Without fever leukocytosis or other signs of infection sepsis is highly unlikely. At this time he is an appointment with his sap specialist next week no reason for readmission. Discharge Plan Departure Patient Disposition: Home Clinical Impression: Atypical chest pain Instructions: DI for Atypical Chest Pain Activity Restrictions/Additional Instructions: *You have been diagnosed with atypical chest pain *What to do: At this time please continue IV infusions. Follow-up with cardiology as scheduled. *Continue to take medications as directed *Follow up with your primary care provider in 2-3 days or call [phone] *Return to ER if you should have increasing chest pain shortness of breath fever or any new, worsening or concerning symptoms Prescriptions: No Action metformin [Glucophage XR] 500 MG tablet extended release 24 hr 500 mg PO BID Qty: 0 lisinopril 5 mg tablet 10 mg PO DAILY glipizide 10 mg tablet 10 mg PO BID aspirin [Adult Low Dose Aspirin] 81 mg tablet,delayed release (DR/EC) 81 mg PO DAILY rosuvastatin 20 mg tablet 20 mg PO DAILY melatonin 10 mg tablet 10 mg PO BEDTIME PRN (Reason: Insomnia) insulin aspart U-100 [Novolog Flexpen U-100 Insulin] SUBCUT finasteride 5 mg tablet 5 mg PO QDAY Qty: 90 3RF Referrals: Mary Luis PA-C [Primary Care Provider] - Stand Alone Forms: Patient Portal/API
[2022-06-30 03:47] VITALS: BP 158/90; PULSE 92; RESP 16; TEMP 36.4; O2SAT 97; BMI 22.7
[2022-06-30 03:58] LABS: Add Manual Diff / Slide Review NO; Basophils Absolute Auto 100 /uL (0-100); Basophils Percent Auto 0.6 % (0-2); Eosinophils Absolute Auto 300 /uL (0-450); Hemoglobin 10.3 g/dL (13.5-17.5); Lymphocytes Absolute Auto 1500 /uL (1100-4500); Lymphocytes Percent Auto 14.4 % (25-40); Mean Corpuscular HGB Conc 33.2 % (30-36); Mean Corpuscular Hemoglobin 26.5 PG (26-34); Monocytes Absolute Auto 600 /uL (0-900); Monocytes Percent Auto 5.9 % (3-14); Neutrophils Absolute Auto 8000 /uL (1500-7000); Neutrophils Percent Auto 76.1 % (50-75); Platelet Count 287 X10^3/uL (150-400); Red Blood Cell Count 3.88 X10^6/uL (4.5-5.9); Red Cell Distribution Width 17.1 % (11.6-14.8); White Blood Cell Count 10.5 X10^3/uL (4.5-11.0)
[2022-06-30 04:07] LABS: Alanine Aminotransferase 20 IU/L (<50); Albumin 3.8 g/dL (3.5-5.0); Alkaline Phosphatase 121 U/L (38-126); Aspartate Aminotransferase 20 IU/L (17-59); BUN Creatinine Ratio 24.2 (6-22); Bilirubin Total 0.4 mg/dL (0.2-1.3); Blood Urea Nitrogen 15 mg/dL (9-20); Calcium 8.8 mg/dL (8.4-10.2); Carbon Dioxide 27 mmol/L (22-32); Chloride 100 mmol/L (98-107); Creatine Kinase 47 U/L (55-170); Estimated Glomerular Filt Rate > 60 mL/min (>60); Globulin 3.7 g/dL (1.7-4.1); Glucose 118 mg/dL (80-110); HEMOLYSIS < 15 (0-50); Lipase 62 U/L (23-300); Potassium 3.5 mmol/L (3.4-5.1); Sodium 135 mmol/L (137-145); Total Protein 7.5 g/dL (6.3-8.2)
[2022-06-30 04:15] LABS: NT-proBNP (BNP-Adult 18+) 784 pg/mL (<125)
[2022-06-30 04:18] LABS: Troponin I 0.024 ng/mL (0.01-0.034)
[2022-06-30 05:01] LABS: D Dimer 1503 ng/ml (<500)
--- NOTE | 2022-06-30 05:03 | DI.CT.S_ITS ---
PROCEDURE: CT ANGIO CHEST PE PROTOCOL INDICATIONS: sob elevated dimer TECHNIQUE: After the administration of intravenous contrast, 2 mm thick sections acquired from the pulmonary apices to the posterior costophrenic angles. 3-dimensional maximum intensity projection (MIP) coronal and sagittal reformats were then acquired through the thorax. For radiation dose reduction, the following was used: automated exposure control, adjustment of mA and/or kV according to patient size. COMPARISON: [facility], CT, CT ANGIO CHEST PE PROTOCOL, 06/14/2022, 8:04. FINDINGS: Image quality: Excellent. Pulmonary arteries: Pulmonary arteries are normal in size, and demonstrate no intraluminal filling defects to suggest central pulmonary embolism. Lungs and pleura: Mild dependent atelectasis in posterior aspect of bilateral lower lobes are seen. There is no acute airspace opacities. No pleural effusions or pneumothorax. Central and peripheral airways are patent. Mediastinum: Heart size is enlarged, with trace amount of pericardial effusion. Prosthetic aortic valve is seen. No mediastinal or hilar adenopathy. 8 mm precarinal lymph node is seen. Right-sided PICC line tip is in SVC. Thoracic aorta is normal in caliber and enhancement. Esophagus is normal in caliber, with a small hiatal hernia. Bones and chest wall: No suspicious bony lesions. No acute vertebral body compression fractures. Thyroid gland is within normal limits. No axillary or supraclavicular adenopathy. Abdomen: Visualized upper abdominal solid organs appear normal in the early arterial phase of enhancement. IMPRESSION: 1. No evidence of pulmonary emboli. No thoracic aortic aneurysm or dissection. 2. Cardiomegaly and trace amount of pericardial effusion. Prior aortic valve replacement. No mediastinal or hilar lymphadenopathy by size criteria. 3. Dependent atelectasis in posterior aspect of bilateral lower lobes. Bilateral lungs are otherwise clear. No discrepancies. Dictated by: Remi Navarro M.D. on 06/30/2022 at 8:04 Approved by: Remi Navarro M.D. on 06/30/2022 at 8:07
[2022-06-30 06:18] LABS: Troponin I 0.023 ng/mL (0.01-0.034)
[2022-06-30 06:38] VITALS: BP 158/90; PULSE 74; RESP 16; TEMP 36.3; O2SAT 97
== END 2022-06-30 06:39 | disposition home or self-care (01) ==
PROVIDERS: Emergency Provider Emergency Medicine; PCP Student in an Organized Health Care Education/Training Program
DX: R07.89 Other chest pain (principal); T82.6XXA Infection and inflammatory reaction due to cardiac valve prosthesis, initial encounter
CPT/HCPCS: 36415; 71045; 71275; 80053; 82550; 83690; 83880; 84484; 85025; 85379; 93005; 93010; 96365; 99282; 99283; J0696; Q9967

== ENCOUNTER → 2022-07-02 09:04 | Outpatient (CLI) | payer MEDICARE, OTHER, SELFPAY ==
[2022-07-02 10:04] LABS: Add Manual Diff / Slide Review NO; Basophils Absolute Auto 100 /uL (0-100); Basophils Percent Auto 0.8 % (0-2); Eosinophils Absolute Auto 200 /uL (0-450); Hematocrit 32.4 % (41-53); Hemoglobin 10.5 g/dL (13.5-17.5); Lymphocytes Absolute Auto 1300 /uL (1100-4500); Lymphocytes Percent Auto 16.3 % (25-40); Mean Corpuscular HGB Conc 32.5 % (30-36); Mean Corpuscular Hemoglobin 26.3 PG (26-34); Monocytes Absolute Auto 600 /uL (0-900); Monocytes Percent Auto 7.5 % (3-14); Neutrophils Absolute Auto 5900 /uL (1500-7000); Neutrophils Percent Auto 72.4 % (50-75); Platelet Count 268 X10^3/uL (150-400); Red Cell Distribution Width 17.3 % (11.6-14.8); White Blood Cell Count 8.1 X10^3/uL (4.5-11.0)
[2022-07-02 10:32] LABS: Erythrocyte Sedimentation Rate 62 MM/HR (0-15)
[2022-07-02 10:48] LABS: HEMOLYSIS < 15 (0-50); Iron 27 ug/dL (49-181)
[2022-07-02 10:53] LABS: C-Reactive Protein Quant 3.4 mg/dL (<1.0)
[2022-07-02 10:57] LABS: Alanine Aminotransferase 18 IU/L (<50); Alkaline Phosphatase 109 U/L (38-126); Aspartate Aminotransferase 19 IU/L (17-59); BUN Creatinine Ratio 21.9 (6-22); Bilirubin Total 0.5 mg/dL (0.2-1.3); Bilirubin Unconjugated 0.2 mg/dL (0.0-1.1); Blood Urea Nitrogen 14 mg/dL (9-20); Estimated Glomerular Filt Rate > 60 mL/min (>60); Globulin 3.9 g/dL (1.7-4.1); HEMOLYSIS < 15 (0-50); Total Protein 7.9 g/dL (6.3-8.2)
[2022-07-02 11:00] LABS: Percent Iron Saturation 8 % (20-50); Total Iron Binding Capacity 344 ug/dL (261-462); Transferrin 248 mg/dL (206-381)
[2022-07-02 11:55] LABS: Folate 4.2 ng/mL (2.76-20.0); Vitamin B12 264 pg/mL (239-931)
[2022-07-02 12:28] LABS: Reticulocyte Count, Percent 1.6 % (0.9-2.6)
== END ==
PROVIDERS: Internal Medicine Infectious Disease; PCP Student in an Organized Health Care Education/Training Program; Referring Provider Internal Medicine Cardiovascular Disease; Visit Provider Internal Medicine Cardiovascular Disease
DX: D64.9 Anemia, unspecified (principal); R07.89 Other chest pain
CPT/HCPCS: 36415; 80076; 82565; 82607; 82746; 83540; 83550; 84520; 85025; 85045; 85651; 86140

== ENCOUNTER → 2022-07-03 13:02 | Outpatient (CLI) | payer MEDICARE, OTHER, SELFPAY ==
[2022-07-07 08:26] LABS: Fecal Immunochemical Test Negative (Negative)
== END ==
PROVIDERS: PCP Student in an Organized Health Care Education/Training Program; Referring Provider Internal Medicine Cardiovascular Disease; Visit Provider Internal Medicine Cardiovascular Disease
DX: D64.9 Anemia, unspecified (principal)
CPT/HCPCS: 82274

== ENCOUNTER → 2022-08-06 12:20 | Outpatient (CLI) | payer MEDICARE, OTHER, SELFPAY | PROVIDERS: PCP Student in an Organized Health Care Education/Training Program; Referring Provider Internal Medicine Infectious Disease; Visit Provider Internal Medicine Infectious Disease | DX: T82.6XXA Infection and inflammatory reaction due to cardiac valve prosthesis, initial encounter (principal) | CPT/HCPCS: 36415; 87040 ==

== ENCOUNTER 2022-08-21 09:42 | Emergency (ER) | payer MEDICARE, OTHER, SELFPAY ==
[2022-08-21] VITALS (47 sets, daily range): BP systolic 120–204; BP diastolic 63–102; PULSE 70–108; RESP 16–36; TEMP 36.4; O2SAT 91–100; BMI 23.8
--- NOTE | 2022-08-21 09:48 | DI.RAD.S_ITS ---
PROCEDURE: XR CHEST 1V INDICATIONS: chest pain TECHNIQUE: One view of the chest was acquired. COMPARISON: [facility], CT, CT ANGIO CHEST PE PROTOCOL, 06/30/2022, 5:08. [facility], CR, XR CHEST 1V, 06/30/2022, 3:36. [facility], CR, XR CHEST 1V, 06/14/2022, 6:31. FINDINGS: Surgical changes and devices: TAVR stent. Right PICC line has been removed. Lungs and pleura: Lungs are clear. No pleural effusions or pneumothorax. Mediastinum: Mediastinal contours appear normal. Heart size is normal. Bones and chest wall: No suspicious bony lesions. Overlying soft tissues appear unremarkable. IMPRESSION: No acute cardiopulmonary abnormality. Dictated by: Christopher Burroughs M.D. on 08/21/2022 at 9:58 Approved by: Christopher Burroughs M.D. on 08/21/2022 at 10:00
--- NOTE | 2022-08-21 09:59 | ED_ITS ---
HPI - Chest Pain General Chief Complaint: Chest Pain Stated Complaint: CHEST PRESSURE. DISCOMFORT BREATHING Time Seen by Provider: 08/21/22 09:47 Source: patient Mode of arrival: Ambulatory Limitations: no limitations History of Present Illness HPI narrative: Patient is a 71-year-old male who is here for evaluation of chest discomfort and problems breathing. He states that his chest discomfort actually started y ester. It was persistent throughout the afternoon in was present last night when he went to bed. Was also present when he woke up this morning. Today he states he is somewhat short of breath with the discomfort. He states that it is a ?deep? sensation. He thought yesterday that it was just indigestion because he was also burping. Discomfort is not worse with palpation or movement. No prior history of heart attack. Is on an aspirin. He is an insulin-dependent diabetic. Has not tried anything for symptoms prior to arrival. Related Data Home Medications Medication Instructions Recorded Confirmed metformin 500 mg tablet,extended 500 mg PO BID ##0 12/14/15 08/06/22 release 24 hr (Glucophage XR) aspirin 81 mg tablet,delayed 81 mg PO DAILY 05/27/18 08/06/22 release (Adult Low Dose Aspirin) glipizide 10 mg tablet 10 mg PO BID 05/27/18 08/06/22 lisinopril 5 mg tablet 10 mg PO DAILY 05/27/18 08/06/22 insulin aspart U-100 [Novolog SUBCUT 10/23/21 08/06/22 FlexPen U-100 Insulin] melatonin 10 mg tablet 10 mg PO BEDTIME PRN Insomnia 10/23/21 08/06/22 rosuvastatin 20 mg tablet 20 mg PO DAILY 10/23/21 08/06/22 metoprolol succinate 25 mg 25 mg PO DAILY 07/07/22 08/06/22 tablet,extended release 24 hr Previous Rx's Medication Instructions Recorded finasteride 5 mg tablet 5 mg PO QDAY #90 tabs 10/23/21 tamsulosin 0.4 mg capsule (Flomax) 0.8 mg PO BEDTIME #180 caps 07/16/22 nitroglycerin 0.4 mg sublingual 0.4 mg sublingual Q5-15M PRN chest 08/21/22 tablet pain #30 tabs sucralfate 100 mg/mL oral 10 ml PO QACHS #414 mL 08/21/22 suspension (Carafate) Allergies Allergy/AdvReac Type Severity Reaction Status Date / Time No Known Drug Allergies Allergy Verified 08/21/22 09:58 Review of Systems Review of Systems ROS Unobtainable: All systems reviewed & are unremarkable except as noted in HPI and below Patient History Medical History BPH w urinary obs/LUTS History of anemia History of arthritis History of asthma History of BPH History of urinary retention Hx of diabetes mellitus Hx of essential hypertension Hx of renal calculi Hx of valvular heart disease Hypertension Incomplete bladder emptying Insomnia (~2007) Obstructive sleep apnea of adult (~2007) Snoring (~2013) Surgical History Hx of cholecystectomy Hx of hernia repair Family History Mother Cancer CAD (coronary artery disease) Diabetes mellitus Hearing impairment Hyperlipidemia Hypertension Thyroid disorder UTI (urinary tract infection) Father CVA (cerebral vascular accident) Renal failure Parkinson disease Social History marital status: details: polina Root, lives in [place] number of children: 0 household members: spouse lives independently: Yes caregiver/support person: No housing: house Smoking Status: Former smoker Tobacco: How many years used: 8 alcohol intake: current caffeine: Yes Type(s) of exercise: walking Smoking Status: Former smoker tobacco type: vaping alcohol intake frequency: a few times a month Alcohol type: wine Substance Use Type: marijuana Exam Initial Vital Signs Initial Vital Signs: Vital Signs Pulse Rate 83 08/21/22 09:47 Blood Pressure 195/93 H 08/21/22 09:47 Pulse Oximetry 100 08/21/22 09:47 Const General: cooperative, comfortable and No ill appearing HENMT Head: normal to inspection and normocephalic Resp Effort & Inspection: normal respiratory effort Auscultation: clear to auscultation bilaterally Cardio Rate: regular rate Rhythm: regular rhythm GI Inspection: normal to inspection Palpation: soft and No tender Skin General: no rashes or lesions noted Neuro General: patient alert, patient awake and moves all extremities Extrem General: No edema Psych Appearance: grossly normal Scores HEART Score Heart Score history: Slightly Suspicious Heart Score EKG: Normal Heart Score Age: > or = 65 years old Heart Score risk factors: 1-2 risk factors Heart Score troponin: < or = to normal limit Heart Score Total: 3 Course Orders Ordered: ED Orders 08/21/22 09:48 XR chest 1V Stat EKG-12 Lead Stat 08/21/22 09:55 Complete Blood Count AUTO DIFF Stat Comprehensive Metabolic Panel Stat Lipase Stat Magnesium Stat NT-proBNP (BNP-Adult 18+) Stat Troponin & CK Cardiac Panel Stat 08/21/22 12:03 D Dimer Stat Troponin & CK Cardiac Panel Stat 08/21/22 12:10 EKG-12 Lead Stat Discontinued Medications Al Hydrox/Mg Hydrox/Simethicone 20 ml/ Lidocaine HCl 15 ml 0 ml PO NOW ONE Stop: 08/21/22 12:02 Last Admin: 08/21/22 12:13 Dose: 35 ml Documented By: NUSRAT Nitroglycerin (Nitroglycerin 0.4 Mg Sl Tab) 0.4 mg SL [id number] PRN PRN Reason: Chest Pain Last Admin: 08/21/22 12:35 Dose: 0.4 mg Documented By: Admin: 08/21/22 12:21 Dose: 0.4 mg Documented By: Admin: 08/21/22 12:14 Dose: 0.4 mg Documented By: NUSRAT Vital Signs Vital signs: Vital Signs - 8 hr 08/21/22 10:47 08/21/22 10:47 08/21/22 10:50 Pulse Rate 88 Respiratory Rate 19 Blood Pressure 177/80 H 168/80 H Pulse Oximetry 100 08/21/22 10:50 08/21/22 11:00 08/21/22 11:00 Pulse Rate 87 86 Respiratory Rate 22 21 Blood Pressure 175/83 H Pulse Oximetry 100 100 08/21/22 11:10 08/21/22 11:10 08/21/22 11:20 Pulse Rate 87 Respiratory Rate 20 Blood Pressure 164/82 H 166/86 H Pulse Oximetry 100 08/21/22 11:20 08/21/22 11:30 08/21/22 11:30 Pulse Rate 90 91 H Respiratory Rate 24 23 Blood Pressure 175/87 H Pulse Oximetry 100 100 08/21/22 11:40 08/21/22 11:40 08/21/22 11:50 Pulse Rate 90 Respiratory Rate 23 Blood Pressure 180/88 H 181/87 H Pulse Oximetry 100 08/21/22 11:50 08/21/22 12:14 08/21/22 12:00 Pulse Rate 93 H 94 H 94 H Respiratory Rate 22 29 H Blood Pressure 204/100 H Pulse Oximetry 100 100 08/21/22 12:01 08/21/22 12:01 08/21/22 12:10 Pulse Rate 94 H 95 H Respiratory Rate 27 H 28 H Blood Pressure 204/99 H Pulse Oximetry 100 99 08/21/22 12:10 08/21/22 12:21 08/21/22 12:35 Pulse Rate 88 74 Respiratory Rate Blood Pressure 204/100 H 189/89 H 140/71 Pulse Oximetry 08/21/22 12:16 08/21/22 12:16 08/21/22 12:20 Pulse Rate 97 H Respiratory Rate 36 H Blood Pressure 204/102 H 180/89 H Pulse Oximetry 100 08/21/22 12:20 08/21/22 12:24 08/21/22 12:24 Pulse Rate 96 H 85 Respiratory Rate 31 H 24 Blood Pressure 180/82 H Pulse Oximetry 98 98 08/21/22 12:25 08/21/22 12:25 08/21/22 12:30 Pulse Rate 83 Respiratory Rate 26 H Blood Pressure 170/82 H 139/71 Pulse Oximetry 98 08/21/22 12:30 08/21/22 12:35 08/21/22 12:35 Pulse Rate 72 70 Respiratory Rate 23 24 Blood Pressure 139/71 Pulse Oximetry 98 97 08/21/22 12:39 08/21/22 12:40 08/21/22 12:40 Pulse Rate 77 78 Respiratory Rate 22 22 Blood Pressure 121/64 Pulse Oximetry 97 97 08/21/22 12:45 08/21/22 12:45 08/21/22 12:50 Pulse Rate 76 Respiratory Rate 19 Blood Pressure 120/63 125/68 Pulse Oximetry 97 08/21/22 12:50 08/21/22 12:55 08/21/22 12:55 Pulse Rate 78 82 Respiratory Rate 22 23 Blood Pressure 127/69 Pulse Oximetry 97 98 08/21/22 13:00 08/21/22 13:00 08/21/22 13:05 Pulse Rate 85 Respiratory Rate 24 Blood Pressure 122/72 126/76 Pulse Oximetry 97 08/21/22 13:05 08/21/22 13:10 08/21/22 13:10 Pulse Rate 86 87 Respiratory Rate 24 24 Blood Pressure 122/73 Pulse Oximetry 97 98 08/21/22 13:15 08/21/22 13:15 08/21/22 13:20 Pulse Rate 86 90 Respiratory Rate 24 24 Blood Pressure 125/72 Pulse Oximetry 98 97 08/21/22 13:20 08/21/22 13:25 08/21/22 13:25 Pulse Rate 97 H Respiratory Rate 24 Blood Pressure 123/73 136/75 Pulse Oximetry 97 08/21/22 13:30 08/21/22 13:31 08/21/22 13:31 Pulse Rate 108 H 101 H Respiratory Rate 22 22 Blood Pressure 146/70 H Pulse Oximetry 91 96 08/21/22 13:35 08/21/22 13:35 08/21/22 13:40 Pulse Rate 101 H 99 H Respiratory Rate 22 23 Blood Pressure 151/72 H Pulse Oximetry 99 100 08/21/22 13:40 08/21/22 13:45 08/21/22 13:45 Pulse Rate 105 H Respiratory Rate 24 Blood Pressure 142/71 H 144/70 H Pulse Oximetry 99 08/21/22 13:50 08/21/22 13:50 08/21/22 13:55 Pulse Rate 104 H 102 H Respiratory Rate 24 25 H Blood Pressure 144/72 H Pulse Oximetry 100 100 08/21/22 13:55 08/21/22 14:00 08/21/22 14:00 Pulse Rate 102 H Respiratory Rate 27 H Blood Pressure 141/73 H 137/72 Pulse Oximetry 100 08/21/22 14:05 08/21/22 14:05 Pulse Rate 102 H Respiratory Rate 24 Blood Pressure 137/70 Pulse Oximetry 99 MDM - Chest Pain Lab Data Attestation: I reviewed the patient's lab results. 08/21/22 09:55 08/21/22 09:55 Labs: Lab Results 08/21/22 08/21/22 08/21/22 Range/Units 09:55 09:55 12:03 WBC 8.8 (4.5-11.0) X10^3/uL RBC 4.62 (4.5-5.9) X10^6/uL Hgb 12.6 L (13.5-17.5) g/dL Hct 37.7 L (41-53) % MCV 81.7 (80-100) fL MCH 27.2 (26-34) PG MCHC 33.3 (30-36) % RDW 17.2 H (11.6-14.8) % Plt Count 163 (150-400) X10^3/uL Neut % (Auto) 80.6 H (50-75) % Lymph % (Auto) 11.9 L (25-40) % [place] % (Auto) 6.1 (3-14) % Eos % (Auto) 0.9 L (2-4) % Baso % (Auto) 0.5 (0-2) % Neut # (Auto) 7100 H (4396-8539) /uL Lymph # (Auto) 1100 (6217-2531) /uL [place] # (Auto) 500 (0-900) /uL Eos # (Auto) 100 (0-450) /uL Baso # (Auto) 0 (0-100) /uL D-Dimer (<500) ng/ml Sodium 134 L (137-145) mmol/L Potassium 3.8 (3.4-5.1) mmol/L Chloride 97 L (98-107) mmol/L Carbon Dioxide 29 (22-32) mmol/L BUN 13 (9-20) mg/dL Creatinine 0.66 (0.66-1.25) mg/dL Estimated GFR > 60 (>60) mL/min BUN/Creatinine Ratio 19.7 (6-22) Glucose 206 H (80-110) mg/dL Calcium 9.4 (8.4-10.2) mg/dL Magnesium 1.8 (1.6-2.3) mg/dL Total Bilirubin 0.7 (0.2-1.3) mg/dL AST 20 (17-59) IU/L ALT 18 (<50) IU/L Alkaline Phosphatase 88 (38-126) U/L Total Creatine Kinase 57 52 L (55-170) U/L CK-MB (CK-2) TNP TNP CK-MB (CK-2) Rel Index TNP TNP Troponin I < 0.012 < 0.012 (0.01-0.034) ng/mL NT-Pro-B Natriuret Pep 149 H (<125) pg/mL Total Protein 7.6 (6.3-8.2) g/dL Albumin 4.3 (3.5-5.0) g/dL Globulin 3.3 (1.7-4.1) g/dL Albumin/Globulin Ratio 1.3 (1.0-2.8) Lipase 106 (23-300) U/L 08/21/22 Range/Units 12:03 WBC (4.5-11.0) X10^3/uL RBC (4.5-5.9) X10^6/uL Hgb (13.5-17.5) g/dL Hct (41-53) % MCV (80-100) fL MCH (26-34) PG MCHC (30-36) % RDW (11.6-14.8) % Plt Count (150-400) X10^3/uL Neut % (Auto) (50-75) % Lymph % (Auto) (25-40) % [place] % (Auto) (3-14) % Eos % (Auto) (2-4) % Baso % (Auto) (0-2) % Neut # (Auto) (7769-6903) /uL Lymph # (Auto) (7514-3996) /uL [place] # (Auto) (0-900) /uL Eos # (Auto) (0-450) /uL Baso # (Auto) (0-100) /uL D-Dimer 639 H (<500) ng/ml Sodium (137-145) mmol/L Potassium (3.4-5.1) mmol/L Chloride (98-107) mmol/L Carbon Dioxide (22-32) mmol/L BUN (9-20) mg/dL Creatinine (0.66-1.25) mg/dL Estimated GFR (>60) mL/min BUN/Creatinine Ratio (6-22) Glucose (80-110) mg/dL Calcium (8.4-10.2) mg/dL Magnesium (1.6-2.3) mg/dL Total Bilirubin (0.2-1.3) mg/dL AST (17-59) IU/L ALT (<50) IU/L Alkaline Phosphatase (38-126) U/L Total Creatine Kinase (55-170) U/L CK-MB (CK-2) CK-MB (CK-2) Rel Index Troponin I (0.01-0.034) ng/mL NT-Pro-B Natriuret Pep (<125) pg/mL Total Protein (6.3-8.2) g/dL Albumin (3.5-5.0) g/dL Globulin (1.7-4.1) g/dL Albumin/Globulin Ratio (1.0-2.8) Lipase (23-300) U/L Urine Dip Bedside Urine Glucose 250 mg/dl Bedside Urine Bilirubin - Negative Bedside Urine Ketone - Negative Urine Specific [place] 1.010 Bedside Urine Occult Blood - Negative Bedside Urine pH 6.0 Bedside Urine Protein - Negative Bedside Urine Urobilinogen - Negative Bedside Urine Nitrite - Negative Bedside Urine Leukocytes - Negative Esterase Imaging Data Chest x-ray: Radiologist's Impression: PROCEDURE:? XR CHEST 1V ? INDICATIONS:? chest pain ? TECHNIQUE:? One view of the chest was acquired.? ? COMPARISON:? [facility], CT, CT ANGIO CHEST PE PROTOCOL, 06/30/2022, 5:08.? [facility], CR, XR CHEST 1V, 06/30/2022, 3:36.? [facility], CR, XR CHEST 1V, 06/14/2022, 6:31. ? FINDINGS:? ? Surgical changes and devices:? TAVR stent.? Right PICC line has been removed. ? Lungs and pleura:? Lungs are clear.? No pleural effusions or pneumothorax.? ? Mediastinum:? Mediastinal contours appear normal.? Heart size is normal.? ? Bones and chest wall:? No suspicious bony lesions.? Overlying soft tissues appear unremarkable.? ? IMPRESSION:? No acute cardiopulmonary abnormality. ECG Data Attestation: I personally reviewed and interpreted this ECG as follows: Interpretation: Sinus rhythm Ventricular rate 84 Normal QRS Normal QTC No ST T wave changes Repeat EKG Sinus rhythm Ventricular rate 93 Normal axis Normal QRS Normal QTC No ST T wave changes MDM Narrative Medical decision making narrative: Patient has a low risk heart score. 2- troponins. EKG is unremarkable. Age adjusted D-dimer below threshold for CT scanning. No signs of pneumonia. Patient did report that the GI cocktail potentially helped him symptoms the most although it is not completely gone. Did discuss the possibility of a GI source of his symptoms. We also discussed the possibility of anxiety. We also disc ussed the possibility of ACS. Plan will be is to send him home with a prescription for Carafate although he was informed that he needed to contact his primary doctor for a follow-up to discuss further testing. He was given return precautions. He expressed understanding and agreement. Discharge Plan Departure Patient Disposition: Home Clinical Impression: Atypical chest pain, Shortness of breath Instructions: DI for Atypical Chest Pain Activity Restrictions/Additional Instructions: I do recommend that you continue to take all of your medications as directed. I also recommend that you contact your primary doctor for a follow-up. Return to the emergency department for new or worsening symptoms. Prescriptions: New sucralfate [Carafate] 100 mg/mL suspension 10 ml PO QACHS Qty: 414 0RF nitroglycerin 0.4 mg tablet, sublingual 0.4 mg sublingual Q5-15M PRN (Reason: chest pain) Qty: 30 0RF Rx Instructions: do not exceed 3 doses per episode No Action metformin [Glucophage XR] 500 MG tablet extended release 24 hr 500 mg PO BID Qty: 0 tamsulosin [Flomax] 0.4 mg capsule 0.8 mg PO BEDTIME Qty: 180 3RF metoprolol succinate 25 mg Tablet Extended Release 24 Hr 25 mg PO DAILY lisinopril 5 mg tablet 10 mg PO DAILY glipizide 10 mg tablet 10 mg PO BID aspirin [Adult Low Dose Aspirin] 81 mg tablet,delayed release (DR/EC) 81 mg PO DAILY rosuvastatin 20 mg tablet 20 mg PO DAILY melatonin 10 mg tablet 10 mg PO BEDTIME PRN (Reason: Insomnia) insulin aspart U-100 [Novolog Flexpen U-100 Insulin] SUBCUT finasteride 5 mg tablet 5 mg PO QDAY Qty: 90 3RF Referrals: Mary Luis PA-C [Primary Care Provider] - Stand Alone Forms: Patient Portal/API
[2022-08-21 10:13] LABS: Add Manual Diff / Slide Review NO; Basophils Absolute Auto 0 /uL (0-100); Basophils Percent Auto 0.5 % (0-2); Eosinophils Absolute Auto 100 /uL (0-450); Eosinophils Percent Auto 0.9 % (2-4); Hematocrit 37.7 % (41-53); Hemoglobin 12.6 g/dL (13.5-17.5); Lymphocytes Absolute Auto 1100 /uL (1100-4500); Lymphocytes Percent Auto 11.9 % (25-40); Mean Corpuscular HGB Conc 33.3 % (30-36); Mean Corpuscular Hemoglobin 27.2 PG (26-34); Mean Corpuscular Volume 81.7 fL (80-100); Monocytes Absolute Auto 500 /uL (0-900); Monocytes Percent Auto 6.1 % (3-14); Neutrophils Absolute Auto 7100 /uL (1500-7000); Neutrophils Percent Auto 80.6 % (50-75); Platelet Count 163 X10^3/uL (150-400); Red Blood Cell Count 4.62 X10^6/uL (4.5-5.9); Red Cell Distribution Width 17.2 % (11.6-14.8); White Blood Cell Count 8.8 X10^3/uL (4.5-11.0)
[2022-08-21 10:25] LABS: Alanine Aminotransferase 18 IU/L (<50); Albumin 4.3 g/dL (3.5-5.0); Albumin Globulin Ratio 1.3 (1.0-2.8); Alkaline Phosphatase 88 U/L (38-126); Aspartate Aminotransferase 20 IU/L (17-59); BUN Creatinine Ratio 19.7 (6-22); Bilirubin Total 0.7 mg/dL (0.2-1.3); Blood Urea Nitrogen 13 mg/dL (9-20); Calcium 9.4 mg/dL (8.4-10.2); Carbon Dioxide 29 mmol/L (22-32); Chloride 97 mmol/L (98-107); Creatine Kinase 57 U/L (55-170); Estimated Glomerular Filt Rate > 60 mL/min (>60); Globulin 3.3 g/dL (1.7-4.1); Glucose 206 mg/dL (80-110); HEMOLYSIS < 15 (0-50); Lipase 106 U/L (23-300); Magnesium 1.8 mg/dL (1.6-2.3); Potassium 3.8 mmol/L (3.4-5.1); Sodium 134 mmol/L (137-145); Total Protein 7.6 g/dL (6.3-8.2)
[2022-08-21 10:36] LABS: NT-proBNP (BNP-Adult 18+) 149 pg/mL (<125); Troponin I < 0.012 ng/mL (0.01-0.034)
[2022-08-21] MEDS: MAG HYDROX/ALUMINUM/SIMETH SUS 20 ML, LIDOCAINE VISCOUS 2% 15 ML PO (12:13)
[2022-08-21] MEDS: NITROGLYCERIN 0.4 MG SL TAB SL ×3 (12:14→12:35)
[2022-08-21 12:18] LABS: D Dimer 639 ng/ml (<500)
[2022-08-21 12:22] LABS: Creatine Kinase 52 U/L (55-170)
[2022-08-21 12:35] LABS: Troponin I < 0.012 ng/mL (0.01-0.034)
== END 2022-08-21 14:14 | disposition home or self-care (01) ==
PROVIDERS: Emergency Provider Emergency Medicine; PCP Student in an Organized Health Care Education/Training Program
DX: R07.89 Other chest pain (principal); R06.02 Shortness of breath; Z79.899 Other long term (current) drug therapy
CPT/HCPCS: 36415; 71045; 80053; 81003; 82550; 83690; 83735; 83880; 84484; 85025; 85379; 93005; 99284

== ENCOUNTER → 2022-10-09 11:12 | Outpatient (CLI) | payer MEDICARE, OTHER, SELFPAY ==
[2022-10-09 12:11] LABS: Erythrocyte Sedimentation Rate 10 MM/HR (0-15)
[2022-10-09 12:22] LABS: Alanine Aminotransferase 15 IU/L (<50); Albumin Globulin Ratio 1.4 (1.0-2.8); Alkaline Phosphatase 147 U/L (38-126); Aspartate Aminotransferase 17 IU/L (17-59); BUN Creatinine Ratio 26.8 (6-22); Bilirubin Total 0.4 mg/dL (0.2-1.3); Blood Urea Nitrogen 19 mg/dL (9-20); C-Reactive Protein Quant < 0.5 mg/dL (<1.0); Calcium 9.3 mg/dL (8.4-10.2); Carbon Dioxide 31 mmol/L (22-32); Chloride 100 mmol/L (98-107); Estimated Glomerular Filt Rate > 60 mL/min (>60); Globulin 2.8 g/dL (1.7-4.1); Glucose 120 mg/dL (80-110); HEMOLYSIS < 15 (0-50); Potassium 3.9 mmol/L (3.4-5.1); Sodium 138 mmol/L (137-145); Total Protein 6.8 g/dL (6.3-8.2)
== END ==
PROVIDERS: PCP Student in an Organized Health Care Education/Training Program; Referring Provider Nurse Practitioner; Visit Provider Nurse Practitioner
DX: I31.9 Disease of pericardium, unspecified (principal)
CPT/HCPCS: 36415; 80053; 85651; 86140

== ENCOUNTER → 2023-07-15 14:00 | Outpatient (CLI) | payer MEDICARE, OTHER, SELFPAY ==
--- NOTE | 2023-07-15 14:03 | DI.RAD.S_ITS ---
PROCEDURE: XR HAND RT MIN 3V INDICATIONS: HAND PAIN TECHNIQUE: 3 views of the hand(s) acquired. COMPARISON: [facility], XR HAND 3V RIGHT, 09/18/2005, 10:12. FINDINGS: Bones: No acute fractures or dislocations. Suspect old fracture at the base of the 3rd proximal phalanx. Carpal bones are normally aligned. No suspicious bony lesions. Mild degenerative joint disease, most pronounced at the triscaphe joint, 1st carpometacarpal joint, and multiple interphalangeal joints. Soft tissues: No suspicious soft tissue calcifications. IMPRESSION: 1. No acute bony abnormality. 2. Mild degenerative joint disease. Dictated by: Ingrid Nava M.D. on 07/16/2023 at 9:24 Approved by: Ingrid Nava M.D. on 07/16/2023 at 9:28
== END ==
LOC: RAD 14:02
PROVIDERS: PCP Student in an Organized Health Care Education/Training Program; Referring Provider Student in an Organized Health Care Education/Training Program; Visit Provider Student in an Organized Health Care Education/Training Program
DX: M19.041 Primary osteoarthritis, right hand (principal); M19.031 Primary osteoarthritis, right wrist; M18.11 Unilateral primary osteoarthritis of first carpometacarpal joint, right hand; M79.641 Pain in right hand
CPT/HCPCS: 73130

== ENCOUNTER → 2023-07-27 14:35 | Outpatient (CLI) | payer MEDICARE, OTHER, SELFPAY ==
[2023-07-30 14:46] LABS: Prostate Specific Antigen 1.45 ng/mL (0.10-4.00)
== END ==
PROVIDERS: PCP Student in an Organized Health Care Education/Training Program; Referring Provider Specialist; Visit Provider Specialist
DX: R97.20 Elevated prostate specific antigen [PSA] (principal); N40.1 Benign prostatic hyperplasia with lower urinary tract symptoms; N13.8 Other obstructive and reflux uropathy; R33.9 Retention of urine, unspecified
CPT/HCPCS: 36415; 84153

== ENCOUNTER 2024-02-02 09:45 | Outpatient (RCR) | payer MEDICARE, OTHER, SELFPAY ==
--- NOTE | 2023-11-11 16:50 | PT.OIE ---
Current Diagnoses Trochanteric bursitis, left hip (11/11/23) Pain in right leg (11/11/23) Difficulty in walking, not elsewhere classified (11/11/23) Unsteadiness on feet (11/11/23) Past Medical History (Last Updated 08/05/23 @ 10:23 by Trey Edwards MD) BPH w urinary obs/LUTS Elevated PSA History of anemia History of arthritis History of asthma History of BPH History of urinary retention Hx of diabetes mellitus Hx of essential hypertension Hx of renal calculi Hx of valvular heart disease Hypertension Incomplete bladder emptying Insomnia (~2007) Obstructive sleep apnea of adult (~2007) Snoring (~2013) Past Surgical History (Last Reviewed 08/05/23 @ 10:10 by Trey Edwards MD) Hx of cholecystectomy Hx of hernia repair Visit Care Team Role Provider Type Mary Luis PA-C Attending Provider Physician Real Estate Associate Family Provider Primary Care Provider Referring Provider Specialty: Medical Address: [place], [place], [facility] Email: [email or web address] Physical Therapy Initial Evaluation PT-OP-A Visit Information Start: 11/10/23 17:40 Freq: Status: Active Protocol: Document 11/11/23 13:53 [facility] (Rec: 11/11/23 15:19 [facility] [id number]) Out-Patient Physical Therapy Visit Information Visit Information Visit Type Initial Evaluation Visit Note 04/29 Visit Start Time 13:50 Visit Stop Time 14:35 Visit Number 1 Number of BRAILLE PROOFREADER Visits 0 PT-OP-B Current Condition Start: 11/10/23 17:40 Freq: Status: Active Protocol: Document 11/11/23 13:53 [facility] (Rec: 11/11/23 15:19 [facility] [id number]) Current Condition History of Current Condition Current Complaints L hip lat, lumbar pain, R ischial tub History of Current Condition hx of dx from neurosuregon L5- S1 OA. THis August pt had in begininning challenging to walk 1 flat mile w/o L post Lat hip pain. Had pain in R glute pain around ischial tub ed of august when did lots of gardening . Mar 2022 had severe LBP like he'd never had and couldn't stand w/o helping him or walking stick to get to the bathroom. Then Juan Ramon had covid and was hospitalizated w/Afib, heart infection and stroke. Had watchman heart implant apr 2023. at end of august this year, came home from vacation and did a lot of gardening tasks Had to try to stretch and rolli t out to keep him moving . Had some weakness in front of L thigh. things are starting to get a little better. Still can't do a full loop of [employer]. did it once but it was rough where B calves and L lat hip tightness and weakness of legs. Back gets stiff and can be hard to get standing straight up when getting up. Sleeping now is better. He was having insomnia but not due to pain in August. Now sleeping through the night . Was given ext stretches for back and initially helped but then seemed to get worse, so now avoiding it. Normal activity is walking 1-2 miles like [employer] loop, doing a lot of landscaping and gardening w/o breaks for 3 hours(now has to take breaks every 30 min or less). Does stationary bike especially in winter daily. Has lumbar issues from time to time that seemed more musclar in the past. R QL would lock up on him sometimes. This has been on/off for 15-20 years w/ o injury. Had PT in fall of 2021 for neck and had started to address back some then. Pt is a retired massage therapist . Treatment Goals Patient/Caregiver Goals improved strength and balance and flexiblity; assess whats is going on PT-OP-C Subjective Start: 11/10/23 17:40 Freq: Status: Active Protocol: Document 11/11/23 13:53 [facility] (Rec: 11/11/23 15:19 [facility] [id number]) Patient Questionnaires Lower Extremity Functional Scale LEFS Score 51 OP-PT Pain Assessment Location hip Pain Location Details L post lat hip 6/10; R ischial tub 2/10 Description Tightness,With Movement Radiating Location weakness L ant thigh Variations/Patterns feels like has thick socks under L plantar foot & little numb-constant Pain Aggravating Factors Standing,Walking,Bending, Lifting Other Pain Aggravating Factors hills; getting up from sitting Other Pain Alleviating Factors moving a little bit;stretching PT-OP-D Balance Start: 11/10/23 17:40 Freq: Status: Active Protocol: Document 11/11/23 13:53 [facility] (Rec: 11/11/23 15:19 [facility] [id number]) Balance Tests Single Limb Standing Single Limb- Right 26 sec Single Limb- Left 8 sec w/inc deviation PT-OP-F Manual Assessment Start: 11/10/23 17:40 Freq: Status: Active Protocol: Document 11/11/23 13:53 [facility] (Rec: 11/11/23 15:19 [facility] [id number]) Manual Assessments Joint Mobility Assessment Joint Mobility Assessment R iliac crest higher, equal greater trochanter height PT-OP-G Mobility & Gait Start: 11/10/23 17:40 Freq: Status: Active Protocol: Document 11/11/23 13:53 [facility] (Rec: 11/11/23 15:19 [facility] [id number]) OP Gait Assessment Comments Gait Comments very rigid, dec B push off, good arm swing but no hip ext or trunk movement PT-OP-J Posture/Palpation/Skin Start: 11/10/23 17:40 Freq: Status: Active Protocol: Document 11/11/23 13:53 [facility] (Rec: 11/11/23 15:19 [facility] [id number]) Posture Evaluation Rm Postural Classification System Rm Postural Classifications Posterior/Anterior Vertical Compression Test 0 Lumbar Protective Mechanism Left AP 0 Lumbar Protective Mechanism Right AP 0 Lumbar Protective Mechanism Left PA 1 Lumbar Protective Mechanism Right PA 1 Comments Posture Comments L foot turned out >R, L pelvic shear, R SB & rot, dec lordosis and inc kyphosis, flex at hips and flexed at knees. PT-OP-K Range of Motion Start: 11/10/23 17:40 Freq: Status: Active Protocol: Document 11/11/23 13:53 [facility] (Rec: 11/11/23 15:19 [facility] [id number]) Lumbar Spine Range of Motion Lumbar Spine Active Percentage Testing Position Standing Flexion 20 Extension 5 Rotation Left 35 Rotation Right 25 Lateral Flexion Left 40 Lateral Flexion Right 50 ROM Limitations Soft Tissue Tightness Comments mid cruz w/o pelvis blocked, mid femur w/pelvis blocked; tightness R QL region w/B SB PT-OP-L Special Tests Start: 11/10/23 17:40 Freq: Status: Active Protocol: Document 11/11/23 13:53 [facility] (Rec: 11/11/23 15:19 [facility] [id number]) Special Tests Lumbar Spine Special Tests Manolo Test Results tight hip flexors & rectus femoris Straight Leg Raise Test Results 63 L; 68 r Slump Test Results slump and ext sit HS tightness PT-OP-M Strength Start: 11/10/23 17:40 Freq: Status: Active Protocol: Document 11/11/23 13:53 [facility] (Rec: 11/11/23 15:19 [facility] [id number]) Hip Strength Hip Manual Muscle Testing Right Flexion (L2) 3+ Fair+ Extension (S1) 3+ Fair+ Abduction 4 Good Adduction 4 Good External Rotation 4 Good Internal Rotation 5 Normal Left Flexion (L2) 3+ Fair+ Extension (S1) 3+ Fair+ Abduction 4- Good- Adduction 4- Good- External Rotation 3+ Fair+ Internal Rotation 4- Good- Knee Strength Knee Manual Muscle Testing Right Flexion (S2) 5 Normal Extension (L3) 5 Normal Left Flexion (S2) 4 Good Extension (L3) 4+ Good+ Ankle/Foot Strength Ankle and Foot Manual Muscle Testing B Dorsiflexion (L4) 5 Normal Plantarflexion (S1) 5 Normal Comments PF tested seated PT-OP-Q Treatments Start: 11/10/23 17:40 Freq: Status: Active Protocol: Document 11/11/23 13:53 [facility] (Rec: 11/11/23 15:19 [facility] [id number]) Self-Care/Home Management Treatment Education Other Education 8 min: discussion w/pt re: how posture and gait pattern match weaknesses and tightness . Encouraged pt to try B hip flexor stretch to start. Edu on importance of hip flexor mobility for improved posture and standing position and to allow fo rpush off PT-OP-T Assessment and Plan Start: 11/10/23 17:40 Freq: Status: Active Protocol: Document 11/11/23 13:53 [facility] (Rec: 11/11/23 15:19 [facility] [id number]) Physical Therapy Assessment Rehab Potential Rehabilitation Potential Good Evaluation Complexity Number of Personal Factors/Comorbidities 3 or More Number of Body Systems Impaired 4 or More Clinical Presentation at Evaluation Evolving Impairments Impairments Activity Tolerance,Balance, Functional Activities, Functional Mobility,Gait,Pain, Posture,ROM,Soft Tissue Mobility,Strength,Transfers Goals balance Short Term Goal (STG) Pt will be able to balance in SLS at least 10 sec on LLE w/o pain STG Duration 12/09 Care Home Goal (LTG) Pt will be able to balance in SLS for 30 sec B to show improved stabiltiy LTG Duration 01/18 strength Short Term Goal (STG) Pt will be indep w/HEP STG Duration 12/19 Care Home Goal (LTG) Pt will score at least 4+/5 on all LE MMT and at least 3/5 on LPM to show improved stability to allow greater ease w/mobility. LTG Duration 02/02 activities Short Term Goal (STG) Pt will be able to do transitions between positions (sit to stand/out of bed) w/o feeling bent over when initially standing STG Duration 12/19 Care Home Goal (LTG) Pt will report being able to walk more regularly and be able to do hills and longer walks w/o inc pain greater than 2/10 after LTG Duration 01/18 Assessment Summary Assessment Pt presents w/B hip pain (R ischial tuberosity and L lat hip pain) with evidence for SI dysfunction, hip flexor tightness, glute weakness and loss of lumbar ROM which all likely contribute to this pain . He has loss of lumbar lordosis and inc kyphosis along w/pelvic shear which likely contributes to his pain along w/very stiff gait. he would benefit from skiled PT to work on balance, gait, ROM, strength and dec pain to improve functional ability. Physical Therapy Plan Frequency and Duration Frequency of Treatment 2x/Week Duration of treatment (weeks) 12 Plan of Care Start Date 11/11/23 Plan of Care End Date 02/03/24 Therapeutic Interventions Therapeutic Interventions Balance Training,Gait Training ,Home Exercise Program,Joint Mobilizations,Manual Therapy, Neuromuscular Re-education, Patient/Caregiver Education, Self-Care/Home Management,Soft Tissue Mobilization,Taping, Therapeutic Activities, Therapeutic Exercises Modalities Cold Pack/Ice Massage,Electric Stimulation,Hot Packs, Traction- Mechanical Next Visit Focus/Plan Next Note Type Treatment Note Next Visit Plan review hip flexor stretch; piriformis stretch & ball release; start supine core manual to B hips & innominate & STM to L piriformis and glutes
--- NOTE | 2023-11-16 15:22 | PT.OTN ---
Current Diagnoses Trochanteric bursitis, left hip (11/16/23) Pain in right leg (11/16/23) Difficulty in walking, not elsewhere classified (11/16/23) Unsteadiness on feet (11/16/23) Physical Therapy Treatment Note PT-OP-A Visit Information Start: 11/10/23 17:40 Freq: Status: Active Protocol: Document 11/16/23 14:41 [facility] (Rec: 11/16/23 15:22 [facility] [id number]) Out-Patient Physical Therapy Visit Information Visit Information Visit Type Treatment Note Visit Note 05/30 Visit Start Time 14:37 Visit Stop Time 15:17 Visit Number 2 Number of COMMERCIAL PAINTER Visits 0 PT-OP-B Current Condition Start: 11/10/23 17:40 Freq: Status: Active Protocol: Document 11/11/23 13:53 [facility] (Rec: 11/11/23 15:19 [facility] [id number]) Current Condition History of Current Condition Current Complaints L hip lat, lumbar pain, R ischial tub History of Current Condition hx of dx from neurosuregon L5- S1 OA. THis August pt had in begininning challenging to walk 1 flat mile w/o L post Lat hip pain. Had pain in R glute pain around ischial tub ed of august when did lots of gardening . Mar 2022 had severe LBP like he'd never had and couldn't stand w/o helping him or walking stick to get to the bathroom. Then Juan Ramon had covid and was hospitalizated w/Afib, heart infection and stroke. Had watchman heart implant apr 2023. at end of august this year, came home from vacation and did a lot of gardening tasks Had to try to stretch and rolli t out to keep him moving . Had some weakness in front of L thigh. things are starting to get a little better. Still can't do a full loop of [employer]. did it once but it was rough where B calves and L lat hip tightness and weakness of legs. Back gets stiff and can be hard to get standing straight up when getting up. Sleeping now is better. He was having insomnia but not due to pain in August. Now sleeping through the night . Was given ext stretches for back and initially helped but then seemed to get worse, so now avoiding it. Normal activity is walking 1-2 miles like [place] loop, doing a lot of landscaping and gardening w/o breaks for 3 hours(now has to take breaks every 30 min or less). Does stationary bike especially in winter daily. Has lumbar issues from time to time that seemed more musclar in the past. R QL would lock up on him sometimes. This has been on/off for 15-20 years w/ o injury. Had PT in fall of 2021 for neck and had started to address back some then. Pt is a retired massage therapist . Treatment Goals Patient/Caregiver Goals improved strength and balance and flexiblity; assess whats is going on PT-OP-C Subjective Start: 11/10/23 17:40 Freq: Status: Active Protocol: Document 11/16/23 14:41 [facility] (Rec: 11/16/23 15:22 [facility] [id number]) OP-PT Subjective Patient Comments Patient Comments Pt tried to go for a long walk but L hip was too angry. Only made it half way. Did hip flexor stretch and that was helpful PT-OP-D Balance Start: 11/10/23 17:40 Freq: Status: Active Protocol: Document 11/11/23 13:53 [facility] (Rec: 11/11/23 15:19 [facility] [id number]) Balance Tests Single Limb Standing Single Limb- Right 26 sec Single Limb- Left 8 sec w/inc deviation PT-OP-F Manual Assessment Start: 11/10/23 17:40 Freq: Status: Active Protocol: Document 11/11/23 13:53 [facility] (Rec: 11/11/23 15:19 [facility] [id number]) Manual Assessments Joint Mobility Assessment Joint Mobility Assessment R iliac crest higher, equal greater trochanter height PT-OP-G Mobility & Gait Start: 11/10/23 17:40 Freq: Status: Active Protocol: Document 11/11/23 13:53 [facility] (Rec: 11/11/23 15:19 [facility] [id number]) OP Gait Assessment Comments Gait Comments very rigid, dec B push off, good arm swing but no hip ext or trunk movement PT-OP-J Posture/Palpation/Skin Start: 11/10/23 17:40 Freq: Status: Active Protocol: Document 11/11/23 13:53 [facility] (Rec: 11/11/23 15:19 [facility] [id number]) Posture Evaluation Rm Postural Classification System Rm Postural Classifications Posterior/Anterior Vertical Compression Test 0 Lumbar Protective Mechanism Left AP 0 Lumbar Protective Mechanism Right AP 0 Lumbar Protective Mechanism Left PA 1 Lumbar Protective Mechanism Right PA 1 Comments Posture Comments L foot turned out >R, L pelvic shear, R SB & rot, dec lordosis and inc kyphosis, flex at hips and flexed at knees. PT-OP-K Range of Motion Start: 11/10/23 17:40 Freq: Status: Active Protocol: Document 11/11/23 13:53 [facility] (Rec: 11/11/23 15:19 [facility] [id number]) Lumbar Spine Range of Motion Lumbar Spine Active Percentage Testing Position Standing Flexion 20 Extension 5 Rotation Left 35 Rotation Right 25 Lateral Flexion Left 40 Lateral Flexion Right 50 ROM Limitations Soft Tissue Tightness Comments mid cruz w/o pelvis blocked, mid femur w/pelvis blocked; tightness R QL region w/B SB PT-OP-L Special Tests Start: 11/10/23 17:40 Freq: Status: Active Protocol: Document 11/11/23 13:53 [facility] (Rec: 11/11/23 15:19 [facility] [id number]) Special Tests Lumbar Spine Special Tests Manolo Test Results tight hip flexors & rectus femoris Straight Leg Raise Test Results 63 L; 68 r Slump Test Results slump and ext sit HS tightness PT-OP-M Strength Start: 11/10/23 17:40 Freq: Status: Active Protocol: Document 11/11/23 13:53 [facility] (Rec: 11/11/23 15:19 [facility] [id number]) Hip Strength Hip Manual Muscle Testing Right Flexion (L2) 3+ Fair+ Extension (S1) 3+ Fair+ Abduction 4 Good Adduction 4 Good External Rotation 4 Good Internal Rotation 5 Normal Left Flexion (L2) 3+ Fair+ Extension (S1) 3+ Fair+ Abduction 4- Good- Adduction 4- Good- External Rotation 3+ Fair+ Internal Rotation 4- Good- Knee Strength Knee Manual Muscle Testing Right Flexion (S2) 5 Normal Extension (L3) 5 Normal Left Flexion (S2) 4 Good Extension (L3) 4+ Good+ Ankle/Foot Strength Ankle and Foot Manual Muscle Testing B Dorsiflexion (L4) 5 Normal Plantarflexion (S1) 5 Normal Comments PF tested seated PT-OP-Q Treatments Start: 11/10/23 17:40 Freq: Status: Active Protocol: Document 11/16/23 14:41 [facility] (Rec: 11/16/23 15:22 [facility] [id number]) Therapeutic Exercises Supine Exercises LTR Supine Exercise Name segmental press down on way up Side bilateral Reps/Minutes 5 sec hold stretch x8 bridge Supine Exercise Name segmental Side bilateral Reps/Minutes 15 pelvic tilt Supine Exercise Name ant/post Side bilateral Reps/Minutes 10 stretch Supine Exercise Name 1. piriformis 2. active HS Side bilateral Reps/Minutes 1. 30 sec 2. 6 sec x6 Sitting Exercises tennis ball Sitting Exercise Name quick review L glute Standing Exercises hip flexor Side bilateral Reps/Minutes 30 sec Manual Therapy Treatment Consent Patient gave verbal consent for manual Yes treatment Soft Tissue Mobilization glute Body Location L glute and piriformis Mobilization Type Sustained Pressure Intensity/Depth Moderate Body Position Prone Comments w/IR/ER Joint Mobilizations hip Comments L free the ball IR/ER and prone hip on axis ER FM; L inf glide PT-OP-T Assessment and Plan Start: 11/10/23 17:40 Freq: Status: Active Protocol: Document 11/16/23 14:41 [facility] (Rec: 11/16/23 15:22 [facility] [id number]) Physical Therapy Assessment Goals balance Short Term Goal (STG) Pt will be able to balance in SLS at least 10 sec on LLE w/o pain STG Duration 12/09 Fdc Goal (LTG) Pt will be able to balance in SLS for 30 sec B to show improved stabiltiy LTG Duration 01/18 strength Short Term Goal (STG) Pt will be indep w/HEP STG Duration 12/19 Bulk Sausage C[employer] Tier Off Goal (LTG) Pt will score at least 4+/5 on all LE MMT and at least 3/5 on LPM to show improved stability to allow greater ease w/mobility. LTG Duration 02/02 activities Short Term Goal (STG) Pt will be able to do transitions between positions (sit to stand/out of bed) w/o feeling bent over when initially standing STG Duration 12/19 [employer]k Saus[employer] C[employer] Tier Off Goal (LTG) Pt will report being able to walk more regularly and be able to do hills and longer walks w/o inc pain greater than 2/10 after LTG Duration 01/18 Assessment Summary Assessment Pt had much improved hip ROM after manual care today.Good carryover w/hip flexor stretch and performance w/exercises w /cues Physical Therapy Plan Next Visit Focus/Plan Next Note Type Treatment Note Next Visit Plan MET for innominate; review exercises as needed and advance core
--- NOTE | 2023-11-19 16:45 | PT.OTN ---
Current Diagnoses Trochanteric bursitis, left hip (11/19/23) Pain in right leg (11/19/23) Difficulty in walking, not elsewhere classified (11/19/23) Unsteadiness on feet (11/19/23) Physical Therapy Treatment Note PT-OP-A Visit Information Start: 11/10/23 17:40 Freq: Status: Active Protocol: Document 11/19/23 13:00 AB (Rec: 11/19/23 14:33 AB [id number]) Out-Patient Physical Therapy Visit Information Visit Information Visit Type Treatment Note Visit Note 06/27 Visit Start Time 13:03 Visit Stop Time 13:45 Visit Number 3 Number of PLATE INSPECTOR Visits 1 PT-OP-B Current Condition Start: 11/10/23 17:40 Freq: Status: Active Protocol: Document 11/11/23 13:53 LR (Rec: 11/11/23 15:19 [facility] [id number]) Current Condition History of Current Condition Current Complaints L hip lat, lumbar pain, R ischial tub History of Current Condition hx of dx from neurosuregon L5- S1 OA. THis August pt had in begininning challenging to walk 1 flat mile w/o L post Lat hip pain. Had pain in R glute pain around ischial tub ed of august when did lots of gardening . Mar 2022 had severe LBP like he'd never had and couldn't stand w/o helping him or walking stick to get to the bathroom. Then Juan Ramon had covid and was hospitalizated w/Afib, heart infection and stroke. Had watchman heart implant apr 2023. at end of august this year, came home from vacation and did a lot of gardening tasks Had to try to stretch and rolli t out to keep him moving . Had some weakness in front of L thigh. things are starting to get a little better. Still can't do a full loop of [place]. did it once but it was rough where B calves and L lat hip tightness and weakness of legs. Back gets stiff and can be hard to get standing straight up when getting up. Sleeping now is better. He was having insomnia but not due to pain in August. Now sleeping through the night . Was given ext stretches for back and initially helped but then seemed to get worse, so now avoiding it. Normal activity is walking 1-2 miles like [place], doing a lot of landscaping and gardening w/o breaks for 3 hours(now has to take breaks every 30 min or less). Does stationary bike especially in winter daily. Has lumbar issues from time to time that seemed more musclar in the past. R QL would lock up on him sometimes. This has been on/off for 15-20 years w/ o injury. Had PT in fall of 2021 for neck and had started to address back some then. Pt is a retired massage therapist . Treatment Goals Patient/Caregiver Goals improved strength and balance and flexiblity; assess whats is going on PT-OP-C Subjective Start: 11/10/23 17:40 Freq: Status: Active Protocol: Document 11/19/23 13:00 AB (Rec: 11/19/23 14:33 AB [id number]) OP-PT Subjective Patient Comments Patient Comments Patient reports he walked 30 minutes with some incline with no increased pain, and reports he stretched prior to walking. PT-OP-D Balance Start: 11/10/23 17:40 Freq: Status: Active Protocol: Document 11/11/23 13:53 [facility] (Rec: 11/11/23 15:19 [facility] [id number]) Balance Tests Single Limb Standing Single Limb- Right 26 sec Single Limb- Left 8 sec w/inc deviation PT-OP-F Manual Assessment Start: 11/10/23 17:40 Freq: Status: Active Protocol: Document 11/11/23 13:53 [facility] (Rec: 11/11/23 15:19 [facility] [id number]) Manual Assessments Joint Mobility Assessment Joint Mobility Assessment R iliac crest higher, equal greater trochanter height PT-OP-G Mobility & Gait Start: 11/10/23 17:40 Freq: Status: Active Protocol: Document 11/11/23 13:53 [facility] (Rec: 11/11/23 15:19 [facility] [id number]) OP Gait Assessment Comments Gait Comments very rigid, dec B push off, good arm swing but no hip ext or trunk movement PT-OP-J Posture/Palpation/Skin Start: 11/10/23 17:40 Freq: Status: Active Protocol: Document 11/11/23 13:53 [facility] (Rec: 11/11/23 15:19 [facility] [id number]) Posture Evaluation Rm Postural Classification System Rm Postural Classifications Posterior/Anterior Vertical Compression Test 0 Lumbar Protective Mechanism Left AP 0 Lumbar Protective Mechanism Right AP 0 Lumbar Protective Mechanism Left PA 1 Lumbar Protective Mechanism Right PA 1 Comments Posture Comments L foot turned out >R, L pelvic shear, R SB & rot, dec lordosis and inc kyphosis, flex at hips and flexed at knees. PT-OP-K Range of Motion Start: 11/10/23 17:40 Freq: Status: Active Protocol: Document 11/11/23 13:53 [facility] (Rec: 11/11/23 15:19 [facility] [id number]) Lumbar Spine Range of Motion Lumbar Spine Active Percentage Testing Position Standing Flexion 20 Extension 5 Rotation Left 35 Rotation Right 25 Lateral Flexion Left 40 Lateral Flexion Right 50 ROM Limitations Soft Tissue Tightness Comments mid cruz w/o pelvis blocked, mid femur w/pelvis blocked; tightness R QL region w/B SB PT-OP-L Special Tests Start: 11/10/23 17:40 Freq: Status: Active Protocol: Document 11/11/23 13:53 [facility] (Rec: 11/11/23 15:19 [facility] [id number]) Special Tests Lumbar Spine Special Tests Manolo Test Results tight hip flexors & rectus femoris Straight Leg Raise Test Results 63 L; 68 r Slump Test Results slump and ext sit HS tightness PT-OP-M Strength Start: 11/10/23 17:40 Freq: Status: Active Protocol: Document 11/11/23 13:53 [facility] (Rec: 11/11/23 15:19 [facility] [id number]) Hip Strength Hip Manual Muscle Testing Right Flexion (L2) 3+ Fair+ Extension (S1) 3+ Fair+ Abduction 4 Good Adduction 4 Good External Rotation 4 Good Internal Rotation 5 Normal Left Flexion (L2) 3+ Fair+ Extension (S1) 3+ Fair+ Abduction 4- Good- Adduction 4- Good- External Rotation 3+ Fair+ Internal Rotation 4- Good- Knee Strength Knee Manual Muscle Testing Right Flexion (S2) 5 Normal Extension (L3) 5 Normal Left Flexion (S2) 4 Good Extension (L3) 4+ Good+ Ankle/Foot Strength Ankle and Foot Manual Muscle Testing B Dorsiflexion (L4) 5 Normal Plantarflexion (S1) 5 Normal Comments PF tested seated PT-OP-Q Treatments Start: 11/10/23 17:40 Freq: Status: Active Protocol: Document 11/19/23 13:00 AB (Rec: 11/19/23 14:33 AB [id number]) Therapeutic Exercises Supine Exercises abdominal bracing with LE ext Reps/Minutes X10 Comments Verbal cues to brace as LE moves away from core LTR Side bilateral Reps/Minutes 5 sec hold stretch x8 stretch Supine Exercise Name 1. piriformis 2. active HS stretch 3 modified Manolo stretch Side bilateral Reps/Minutes 1. 60 sec 2.6 sec X 5 3. 60 sec with AROMknee flexion X10 Therapeutic Activity Therapeutic Activity sit to stand Reps/Minutes X4 Comments Pt ed use of self tactile cues for hip hinge supine to sit Reps/Minutes to left X2 and right X1 Comments Verbal cues for normal movement pattern Manual Therapy Treatment Soft Tissue Mobilization glute Body Location bilateral hip flexors at groin glute and piriformis Mobilization Type Sustained Pressure Intensity/Depth Moderate Body Position Prone Manual Techniques MET for left AI right PI Type MET for left AI right PI and pubic shot gun Reps/Duration 6 X 6 sec each Comments Dowel under left LE PT-OP-T Assessment and Plan Start: 11/10/23 17:40 Freq: Status: Active Protocol: Document 11/19/23 13:00 AB (Rec: 11/19/23 14:33 AB [id number]) Physical Therapy Assessment Goals balance Short Term Goal (STG) Pt will be able to balance in SLS at least 10 sec on LLE w/o pain STG Duration 12/09 Mcc Goal (LTG) Pt will be able to balance in SLS for 30 sec B to show improved stabiltiy LTG Duration 01/18 strength Short Term Goal (STG) Pt will be indep w/HEP STG Duration 12/19 Railroad Brakeman Goal (LTG) Pt will score at least 4+/5 on all LE MMT and at least 3/5 on LPM to show improved stability to allow greater ease w/mobility. LTG Duration 02/02 activities Short Term Goal (STG) Pt will be able to do transitions between positions (sit to stand/out of bed) w/o feeling bent over when initially standing STG Duration 12/19 Railroad Brakeman Goal (LTG) Pt will report being able to walk more regularly and be able to do hills and longer walks w/o inc pain greater than 2/10 after LTG Duration 01/18 Assessment Summary Assessment Patient rates pain 2/10 left hip end of session, reports it feels looser. Physical Therapy Plan Frequency and Duration Frequency of Treatment 2x/Week Duration of treatment (weeks) 12 Plan of Care Start Date 11/11/23 Plan of Care End Date 02/03/24 Next Visit Focus/Plan Next Note Type Treatment Note Next Visit Plan MET for innominate; review exercises as needed and advance core
--- NOTE | 2023-11-23 12:11 | PT.OTN ---
Current Diagnoses Trochanteric bursitis, left hip (11/23/23) Pain in right leg (11/23/23) Difficulty in walking, not elsewhere classified (11/23/23) Unsteadiness on feet (11/23/23) Physical Therapy Treatment Note PT-OP-A Visit Information Start: 11/10/23 17:40 Freq: Status: Active Protocol: Document 11/23/23 10:33 AB (Rec: 11/23/23 12:11 AB [id number]) Out-Patient Physical Therapy Visit Information Visit Information Visit Type Treatment Note Visit Note 07/28 Access Code [email or web address] Visit Start Time 10:34 Visit Stop Time 11:15 Visit Number 4 Number of TELEVISION STATION MANAGER Visits 2 PT-OP-B Current Condition Start: 11/10/23 17:40 Freq: Status: Active Protocol: Document 11/11/23 13:53 [facility] (Rec: 11/11/23 15:19 [facility] [id number]) Current Condition History of Current Condition Current Complaints L hip lat, lumbar pain, R ischial tub History of Current Condition hx of dx from neurosuregon L5- S1 OA. THis August pt had in begininning challenging to walk 1 flat mile w/o L post Lat hip pain. Had pain in R glute pain around ischial tub ed of august when did lots of gardening . Mar 2022 had severe LBP like he'd never had and couldn't stand w/o helping him or walking stick to get to the bathroom. Then Juan Ramon had covid and was hospitalizated w/Afib, heart infection and stroke. Had watchman heart implant apr 2023. at end of august this year, came home from vacation and did a lot of gardening tasks Had to try to stretch and rolli t out to keep him moving . Had some weakness in front of L thigh. things are starting to get a little better. Still can't do a full loop of [employer]. did it once but it was rough where B calves and L lat hip tightness and weakness of legs. Back gets stiff and can be hard to get standing straight up when getting up. Sleeping now is better. He was having insomnia but not due to pain in August. Now sleeping through the night . Was given ext stretches for back and initially helped but then seemed to get worse, so now avoiding it. Normal activity is walking 1-2 miles like [place], doing a lot of landscaping and gardening w/o breaks for 3 hours(now has to take breaks every 30 min or less). Does stationary bike especially in winter daily. Has lumbar issues from time to time that seemed more musclar in the past. R QL would lock up on him sometimes. This has been on/off for 15-20 years w/ o injury. Had PT in fall of 2021 for neck and had started to address back some then. Pt is a retired massage therapist . Treatment Goals Patient/Caregiver Goals improved strength and balance and flexiblity; assess whats is going on PT-OP-C Subjective Start: 11/10/23 17:40 Freq: Status: Active Protocol: Document 11/23/23 10:33 AB (Rec: 11/23/23 12:11 AB [id number]) OP-PT Subjective Patient Comments Patient Comments Patient reports he feels a little better, was able to walk a mile with some incline and flat more smoothly. Patient reports he spent 20 minutes on knees weeding without having pain when returning to upright. PT-OP-D Balance Start: 11/10/23 17:40 Freq: Status: Active Protocol: Document 11/11/23 13:53 [facility] (Rec: 11/11/23 15:19 [facility] [id number]) Balance Tests Single Limb Standing Single Limb- Right 26 sec Single Limb- Left 8 sec w/inc deviation PT-OP-F Manual Assessment Start: 11/10/23 17:40 Freq: Status: Active Protocol: Document 11/11/23 13:53 [facility] (Rec: 11/11/23 15:19 [facility] [id number]) Manual Assessments Joint Mobility Assessment Joint Mobility Assessment R iliac crest higher, equal greater trochanter height PT-OP-G Mobility & Gait Start: 11/10/23 17:40 Freq: Status: Active Protocol: Document 11/11/23 13:53 [facility] (Rec: 11/11/23 15:19 [facility] [id number]) OP Gait Assessment Comments Gait Comments very rigid, dec B push off, good arm swing but no hip ext or trunk movement PT-OP-J Posture/Palpation/Skin Start: 11/10/23 17:40 Freq: Status: Active Protocol: Document 11/11/23 13:53 [facility] (Rec: 11/11/23 15:19 [facility] [id number]) Posture Evaluation [facility] Postural Classification System [facility] Postural Classifications Posterior/Anterior Vertical Compression Test 0 Lumbar Protective Mechanism Left AP 0 Lumbar Protective Mechanism Right AP 0 Lumbar Protective Mechanism Left PA 1 Lumbar Protective Mechanism Right PA 1 Comments Posture Comments L foot turned out >R, L pelvic shear, R SB & rot, dec lordosis and inc kyphosis, flex at hips and flexed at knees. PT-OP-K Range of Motion Start: 11/10/23 17:40 Freq: Status: Active Protocol: Document 11/11/23 13:53 [facility] (Rec: 11/11/23 15:19 [facility] [id number]) Lumbar Spine Range of Motion Lumbar Spine Active Percentage Testing Position Standing Flexion 20 Extension 5 Rotation Left 35 Rotation Right 25 Lateral Flexion Left 40 Lateral Flexion Right 50 ROM Limitations Soft Tissue Tightness Comments mid cruz w/o pelvis blocked, mid femur w/pelvis blocked; tightness R QL region w/B SB PT-OP-L Special Tests Start: 11/10/23 17:40 Freq: Status: Active Protocol: Document 11/11/23 13:53 [facility] (Rec: 11/11/23 15:19 [facility] [id number]) Special Tests Lumbar Spine Special Tests Manolo Test Results tight hip flexors & rectus femoris Straight Leg Raise Test Results 63 L; 68 r Slump Test Results slump and ext sit HS tightness PT-OP-M Strength Start: 11/10/23 17:40 Freq: Status: Active Protocol: Document 11/11/23 13:53 [facility] (Rec: 11/11/23 15:19 [facility] [id number]) Hip Strength Hip Manual Muscle Testing Right Flexion (L2) 3+ Fair+ Extension (S1) 3+ Fair+ Abduction 4 Good Adduction 4 Good External Rotation 4 Good Internal Rotation 5 Normal Left Flexion (L2) 3+ Fair+ Extension (S1) 3+ Fair+ Abduction 4- Good- Adduction 4- Good- External Rotation 3+ Fair+ Internal Rotation 4- Good- Knee Strength Knee Manual Muscle Testing Right Flexion (S2) 5 Normal Extension (L3) 5 Normal Left Flexion (S2) 4 Good Extension (L3) 4+ Good+ Ankle/Foot Strength Ankle and Foot Manual Muscle Testing B Dorsiflexion (L4) 5 Normal Plantarflexion (S1) 5 Normal Comments PF tested seated PT-OP-Q Treatments Start: 11/10/23 17:40 Freq: Status: Active Protocol: Document 11/23/23 10:33 AB (Rec: 11/23/23 12:11 AB [id number]) Therapeutic Exercises Supine Exercises LTR Side bilateral Reps/Minutes 5 sec hold stretch x8 stretch Supine Exercise Name 1. piriformis 2. active HS stretch 3 modified Manolo stretch Side bilateral Reps/Minutes 1. 60 sec 2.6 sec X 5 3. 60 sec with AROMknee flexion X10 Standing Exercises Quadratus stretch Side bilateral Reps/Minutes 60 sec X 1 each side Comments verbal and visual cues Manual Therapy Treatment Soft Tissue Mobilization glute Body Location bilateral hip flexors at groin glute, quadratus and piriformis Mobilization Type Cross-Friction,Rolling, Sustained Pressure Intensity/Depth Moderate Body Position Sidelying Comments and hooklying Manual Techniques MET for left AI right PI Type MET for left AI right PI and pubic shot gun Reps/Duration 6 X 6 sec each Comments Dowel under left LE PT-OP-T Assessment and Plan Start: 11/10/23 17:40 Freq: Status: Active Protocol: Document 11/23/23 10:33 AB (Rec: 11/23/23 12:11 AB [id number]) Physical Therapy Assessment Goals balance Short Term Goal (STG) Pt will be able to balance in SLS at least 10 sec on LLE w/o pain STG Duration 12/09 Hack Saw Operator Goal (LTG) Pt will be able to balance in SLS for 30 sec B to show improved stabiltiy LTG Duration 01/18 strength Short Term Goal (STG) Pt will be indep w/HEP STG Duration 12/19 Retirement Goal (LTG) Pt will score at least 4+/5 on all LE MMT and at least 3/5 on LPM to show improved stability to allow greater ease w/mobility. LTG Duration 02/02 activities Short Term Goal (STG) Pt will be able to do transitions between positions (sit to stand/out of bed) w/o feeling bent over when initially standing STG Duration 12/19 Retirement Goal (LTG) Pt will report being able to walk more regularly and be able to do hills and longer walks w/o inc pain greater than 2/10 after LTG Duration 01/18 Assessment Summary Assessment Ben reports feeling looser end of session, and into session with reports of decreased discomfort when ambulating on inclines. Physical Therapy Plan Frequency and Duration Frequency of Treatment 2x/Week Duration of treatment (weeks) 12 Plan of Care Start Date 11/11/23 Plan of Care End Date 02/03/24 Next Visit Focus/Plan Next Note Type Treatment Note Next Visit Plan MET for innominate; review exercises as needed and advance core/[place] ball
--- NOTE | 2023-11-26 12:24 | PT.OTN ---
Current Diagnoses Trochanteric bursitis, left hip (11/26/23) Pain in right leg (11/26/23) Difficulty in walking, not elsewhere classified (11/26/23) Unsteadiness on feet (11/26/23) Physical Therapy Treatment Note PT-OP-A Visit Information Start: 11/10/23 17:40 Freq: Status: Active Protocol: Document 11/26/23 10:37 [facility] (Rec: 11/26/23 12:24 [facility] [id number]) Out-Patient Physical Therapy Visit Information Visit Information Visit Type Treatment Note Visit Note 08/27 Access Code [email or web address] Visit Start Time 10:36 Visit Stop Time 11:15 Visit Number 5 Number of SOCIAL SERVICES COORDINATOR Visits 0 PT-OP-B Current Condition Start: 11/10/23 17:40 Freq: Status: Active Protocol: Document 11/11/23 13:53 [facility] (Rec: 11/11/23 15:19 [facility] [id number]) Current Condition History of Current Condition Current Complaints L hip lat, lumbar pain, R ischial tub History of Current Condition hx of dx from neurosuregon L5- S1 OA. THis August pt had in begininning challenging to walk 1 flat mile w/o L post Lat hip pain. Had pain in R glute pain around ischial tub ed of august when did lots of gardening . Mar 2022 had severe LBP like he'd never had and couldn't stand w/o helping him or walking stick to get to the bathroom. Then Juan Ramon had covid and was hospitalizated w/Afib, heart infection and stroke. Had watchman heart implant apr 2023. at end of august this year, came home from vacation and did a lot of gardening tasks Had to try to stretch and rolli t out to keep him moving . Had some weakness in front of L thigh. things are starting to get a little better. Still can't do a full loop of [place]. did it once but it was rough where B calves and L lat hip tightness and weakness of legs. Back gets stiff and can be hard to get standing straight up when getting up. Sleeping now is better. He was having insomnia but not due to pain in August. Now sleeping through the night . Was given ext stretches for back and initially helped but then seemed to get worse, so now avoiding it. Normal activity is walking 1-2 miles like [employer], doing a lot of landscaping and gardening w/o breaks for 3 hours(now has to take breaks every 30 min or less). Does stationary bike especially in winter daily. Has lumbar issues from time to time that seemed more musclar in the past. R QL would lock up on him sometimes. This has been on/off for 15-20 years w/ o injury. Had PT in fall of 2021 for neck and had started to address back some then. Pt is a retired massage therapist . Treatment Goals Patient/Caregiver Goals improved strength and balance and flexiblity; assess whats is going on PT-OP-C Subjective Start: 11/10/23 17:40 Freq: Status: Active Protocol: Document 11/26/23 10:37 [facility] (Rec: 11/26/23 12:24 [facility] [id number]) OP-PT Subjective Patient Comments Patient Comments notes ql is tight. Feels like is doing better Patient Reported Progress Improving PT-OP-D Balance Start: 11/10/23 17:40 Freq: Status: Active Protocol: Document 11/11/23 13:53 [facility] (Rec: 11/11/23 15:19 [facility] [id number]) Balance Tests Single Limb Standing Single Limb- Right 26 sec Single Limb- Left 8 sec w/inc deviation PT-OP-F Manual Assessment Start: 11/10/23 17:40 Freq: Status: Active Protocol: Document 11/11/23 13:53 [facility] (Rec: 11/11/23 15:19 [facility] [id number]) Manual Assessments Joint Mobility Assessment Joint Mobility Assessment R iliac crest higher, equal greater trochanter height PT-OP-G Mobility & Gait Start: 11/10/23 17:40 Freq: Status: Active Protocol: Document 11/11/23 13:53 [facility] (Rec: 11/11/23 15:19 [facility] [id number]) OP Gait Assessment Comments Gait Comments very rigid, dec B push off, good arm swing but no hip ext or trunk movement PT-OP-J Posture/Palpation/Skin Start: 11/10/23 17:40 Freq: Status: Active Protocol: Document 11/11/23 13:53 [facility] (Rec: 11/11/23 15:19 [facility] [id number]) Posture Evaluation Rm Postural Classification System Rm Postural Classifications Posterior/Anterior Vertical Compression Test 0 Lumbar Protective Mechanism Left AP 0 Lumbar Protective Mechanism Right AP 0 Lumbar Protective Mechanism Left PA 1 Lumbar Protective Mechanism Right PA 1 Comments Posture Comments L foot turned out >R, L pelvic shear, R SB & rot, dec lordosis and inc kyphosis, flex at hips and flexed at knees. PT-OP-K Range of Motion Start: 11/10/23 17:40 Freq: Status: Active Protocol: Document 11/11/23 13:53 [facility] (Rec: 11/11/23 15:19 [facility] [id number]) Lumbar Spine Range of Motion Lumbar Spine Active Percentage Testing Position Standing Flexion 20 Extension 5 Rotation Left 35 Rotation Right 25 Lateral Flexion Left 40 Lateral Flexion Right 50 ROM Limitations Soft Tissue Tightness Comments mid cruz w/o pelvis blocked, mid femur w/pelvis blocked; tightness R QL region w/B SB PT-OP-L Special Tests Start: 11/10/23 17:40 Freq: Status: Active Protocol: Document 11/11/23 13:53 [facility] (Rec: 11/11/23 15:19 [facility] [id number]) Special Tests Lumbar Spine Special Tests Manolo Test Results tight hip flexors & rectus femoris Straight Leg Raise Test Results 63 L; 68 r Slump Test Results slump and ext sit HS tightness PT-OP-M Strength Start: 11/10/23 17:40 Freq: Status: Active Protocol: Document 11/11/23 13:53 [facility] (Rec: 11/11/23 15:19 [facility] [id number]) Hip Strength Hip Manual Muscle Testing Right Flexion (L2) 3+ Fair+ Extension (S1) 3+ Fair+ Abduction 4 Good Adduction 4 Good External Rotation 4 Good Internal Rotation 5 Normal Left Flexion (L2) 3+ Fair+ Extension (S1) 3+ Fair+ Abduction 4- Good- Adduction 4- Good- External Rotation 3+ Fair+ Internal Rotation 4- Good- Knee Strength Knee Manual Muscle Testing Right Flexion (S2) 5 Normal Extension (L3) 5 Normal Left Flexion (S2) 4 Good Extension (L3) 4+ Good+ Ankle/Foot Strength Ankle and Foot Manual Muscle Testing B Dorsiflexion (L4) 5 Normal Plantarflexion (S1) 5 Normal Comments PF tested seated PT-OP-Q Treatments Start: 11/10/23 17:40 Freq: Status: Active Protocol: Document 11/26/23 10:37 [facility] (Rec: 11/26/23 12:24 [facility] [id number]) Gym Equipment Therapeutic Ball seated Ball Size/Color green Reps/Duration 12 ea Comments 1. pelvic tilts 2. pelvic circles B 3. marches B 4. sit backs Therapeutic Exercises Standing Exercises Quadratus stretch Side bilateral Reps/Minutes 30 sec ea Comments verbal and visual cues Manual Therapy Treatment Consent Patient gave verbal consent for manual Yes treatment Soft Tissue Mobilization glute Body Location L glute/piriformis Mobilization Type Rolling,Sustained Pressure Intensity/Depth Moderate Body Position Sidelying Joint Mobilizations innominate Comments prone caudal glide L innominate and s/l L add FM sacrum Body Position Prone Comments L PA and caudal glide FM hip Comments L abd FM PT-OP-T Assessment and Plan Start: 11/10/23 17:40 Freq: Status: Active Protocol: Document 11/26/23 10:37 [facility] (Rec: 11/26/23 12:24 [facility] [id number]) Physical Therapy Assessment Goals balance Short Term Goal (STG) Pt will be able to balance in SLS at least 10 sec on LLE w/o pain STG Duration 12/09 Nursing Home Goal (LTG) Pt will be able to balance in SLS for 30 sec B to show improved stabiltiy LTG Duration 01/18 strength Short Term Goal (STG) Pt will be indep w/HEP STG Duration 12/19 Nursing Home Goal (LTG) Pt will score at least 4+/5 on all LE MMT and at least 3/5 on LPM to show improved stability to allow greater ease w/mobility. LTG Duration 02/02 activities Short Term Goal (STG) Pt will be able to do transitions between positions (sit to stand/out of bed) w/o feeling bent over when initially standing STG Duration 12/19 Cord Splicer Goal (LTG) Pt will report being able to walk more regularly and be able to do hills and longer walks w/o inc pain greater than 2/10 after LTG Duration 01/18 Assessment Summary Assessment Pt reports feeling better at end of session. He did well with ball exercises but did need a lot of cues for tilts and circles especially Physical Therapy Plan Frequency and Duration Frequency of Treatment 2x/Week Duration of treatment (weeks) 12 Plan of Care Start Date 11/11/23 Plan of Care End Date 02/03/24 Next Visit Focus/Plan Next Note Type Treatment Note Next Visit Plan cont to work on innominate and hip mobility. review ball exercises
--- NOTE | 2023-12-01 18:04 | PT.OTN ---
Current Diagnoses Trochanteric bursitis, left hip (12/01/23) Pain in right leg (12/01/23) Difficulty in walking, not elsewhere classified (12/01/23) Unsteadiness on feet (12/01/23) Physical Therapy Treatment Note PT-OP-A Visit Information Start: 11/10/23 17:40 Freq: Status: Active Protocol: Document 12/01/23 17:59 [facility] (Rec: 12/01/23 18:04 [facility] [id number]) Out-Patient Physical Therapy Visit Information Visit Information Visit Type Treatment Note Visit Note 09/27 Access Code [email or web address] Visit Start Time 09:50 Visit Stop Time 10:30 Visit Number 6 Number of INVENTORY MANAGER Visits 0 PT-OP-B Current Condition Start: 11/10/23 17:40 Freq: Status: Active Protocol: Document 11/11/23 13:53 [facility] (Rec: 11/11/23 15:19 [facility] [id number]) Current Condition History of Current Condition Current Complaints L hip lat, lumbar pain, R ischial tub History of Current Condition hx of dx from neurosuregon L5- S1 OA. THis August pt had in begininning challenging to walk 1 flat mile w/o L post Lat hip pain. Had pain in R glute pain around ischial tub ed of august when did lots of gardening . Mar 2022 had severe LBP like he'd never had and couldn't stand w/o helping him or walking stick to get to the bathroom. Then Juan Ramon had covid and was hospitalizated w/Afib, heart infection and stroke. Had watchman heart implant apr 2023. at end of august this year, came home from vacation and did a lot of gardening tasks Had to try to stretch and rolli t out to keep him moving . Had some weakness in front of L thigh. things are starting to get a little better. Still can't do a full [place]. did it once but it was rough where B calves and L lat hip tightness and weakness of legs. Back gets stiff and can be hard to get standing straight up when getting up. Sleeping now is better. He was having insomnia but not due to pain in August. Now sleeping through the night . Was given ext stretches for back and initially helped but then seemed to get worse, so now avoiding it. Normal activity is walking 1-2 miles like [employer], doing a lot of landscaping and gardening w/o breaks for 3 hours(now has to take breaks every 30 min or less). Does stationary bike especially in winter daily. Has lumbar issues from time to time that seemed more musclar in the past. R QL would lock up on him sometimes. This has been on/off for 15-20 years w/ o injury. Had PT in fall of 2021 for neck and had started to address back some then. Pt is a retired massage therapist . Treatment Goals Patient/Caregiver Goals improved strength and balance and flexiblity; assess whats is going on PT-OP-C Subjective Start: 11/10/23 17:40 Freq: Status: Active Protocol: Document 12/01/23 17:59 [facility] (Rec: 12/01/23 18:04 [facility] [id number]) OP-PT Subjective Patient Comments Patient Comments pt reports pain is better. walked up to 1.5 mile but does get some lat hip pain. no ischial tub pain PT-OP-D Balance Start: 11/10/23 17:40 Freq: Status: Active Protocol: Document 11/11/23 13:53 [facility] (Rec: 11/11/23 15:19 [facility] [id number]) Balance Tests Single Limb Standing Single Limb- Right 26 sec Single Limb- Left 8 sec w/inc deviation PT-OP-F Manual Assessment Start: 11/10/23 17:40 Freq: Status: Active Protocol: Document 11/11/23 13:53 [facility] (Rec: 11/11/23 15:19 [facility] [id number]) Manual Assessments Joint Mobility Assessment Joint Mobility Assessment R iliac crest higher, equal greater trochanter height PT-OP-G Mobility & Gait Start: 11/10/23 17:40 Freq: Status: Active Protocol: Document 11/11/23 13:53 [facility] (Rec: 11/11/23 15:19 [facility] [id number]) OP Gait Assessment Comments Gait Comments very rigid, dec B push off, good arm swing but no hip ext or trunk movement PT-OP-J Posture/Palpation/Skin Start: 11/10/23 17:40 Freq: Status: Active Protocol: Document 11/11/23 13:53 [facility] (Rec: 11/11/23 15:19 [facility] [id number]) Posture Evaluation [facility] Postural Classification System [facility] Postural Classifications Posterior/Anterior Vertical Compression Test 0 Lumbar Protective Mechanism Left AP 0 Lumbar Protective Mechanism Right AP 0 Lumbar Protective Mechanism Left PA 1 Lumbar Protective Mechanism Right PA 1 Comments Posture Comments L foot turned out >R, L pelvic shear, R SB & rot, dec lordosis and inc kyphosis, flex at hips and flexed at knees. PT-OP-K Range of Motion Start: 11/10/23 17:40 Freq: Status: Active Protocol: Document 11/11/23 13:53 [facility] (Rec: 11/11/23 15:19 [facility] [id number]) Lumbar Spine Range of Motion Lumbar Spine Active Percentage Testing Position Standing Flexion 20 Extension 5 Rotation Left 35 Rotation Right 25 Lateral Flexion Left 40 Lateral Flexion Right 50 ROM Limitations Soft Tissue Tightness Comments mid cruz w/o pelvis blocked, mid femur w/pelvis blocked; tightness R QL region w/B SB PT-OP-L Special Tests Start: 11/10/23 17:40 Freq: Status: Active Protocol: Document 11/11/23 13:53 [facility] (Rec: 11/11/23 15:19 [facility] [id number]) Special Tests Lumbar Spine Special Tests Manolo Test Results tight hip flexors & rectus femoris Straight Leg Raise Test Results 63 L; 68 r Slump Test Results slump and ext sit HS tightness PT-OP-M Strength Start: 11/10/23 17:40 Freq: Status: Active Protocol: Document 11/11/23 13:53 [facility] (Rec: 11/11/23 15:19 [facility] [id number]) Hip Strength Hip Manual Muscle Testing Right Flexion (L2) 3+ Fair+ Extension (S1) 3+ Fair+ Abduction 4 Good Adduction 4 Good External Rotation 4 Good Internal Rotation 5 Normal Left Flexion (L2) 3+ Fair+ Extension (S1) 3+ Fair+ Abduction 4- Good- Adduction 4- Good- External Rotation 3+ Fair+ Internal Rotation 4- Good- Knee Strength Knee Manual Muscle Testing Right Flexion (S2) 5 Normal Extension (L3) 5 Normal Left Flexion (S2) 4 Good Extension (L3) 4+ Good+ Ankle/Foot Strength Ankle and Foot Manual Muscle Testing B Dorsiflexion (L4) 5 Normal Plantarflexion (S1) 5 Normal Comments PF tested seated PT-OP-Q Treatments Start: 11/10/23 17:40 Freq: Status: Active Protocol: Document 12/01/23 17:59 [facility] (Rec: 12/01/23 18:04 [facility] [id number]) Gym Equipment Therapeutic Ball seated Exercise Details max cues w/1 and 2 Ball Size/Color green Reps/Duration 15 ea Comments 1. pelvic tilts 2. pelvic circles B 3. marches B 4. sit backs Sport Cord back Cord/Resistance red Reps/Duration 10 Comments cues inc step length fwd Cord/Resistance red Reps/Duration 10 Comments cues push off Gait Training Gait Activity gait at wall Distance/Duration 5x5sec hold Treatment Focus post dep w/hip ext resisted gait Comments dowel 50ft resisted by PT gait Distance/Duration 50x4 Comments working on inc arm swing and push off Manual Therapy Treatment Consent Patient gave verbal consent for manual Yes treatment Soft Tissue Mobilization hip flexor Body Location L RF, inguinal lig, iliopsoas Mobilization Type Sustained Pressure Intensity/Depth Moderate Comments manolo test and supine PT-OP-T Assessment and Plan Start: 11/10/23 17:40 Freq: Status: Active Protocol: Document 12/01/23 17:59 [facility] (Rec: 12/01/23 18:04 [facility] [id number]) Physical Therapy Assessment Goals balance Short Term Goal (STG) Pt will be able to balance in SLS at least 10 sec on LLE w/o pain STG Duration 12/09 Correction Goal (LTG) Pt will be able to balance in SLS for 30 sec B to show improved stabiltiy LTG Duration 01/18 strength Short Term Goal (STG) Pt will be indep w/HEP STG Duration 12/19 Correction Goal (LTG) Pt will score at least 4+/5 on all LE MMT and at least 3/5 on LPM to show improved stability to allow greater ease w/mobility. LTG Duration 02/02 activities Short Term Goal (STG) Pt will be able to do transitions between positions (sit to stand/out of bed) w/o feeling bent over when initially standing STG Duration 12/19 Correction Goal (LTG) Pt will report being able to walk more regularly and be able to do hills and longer walks w/o inc pain greater than 2/10 after LTG Duration 01/18 Assessment Summary Assessment improvd gait after session w/ improved spinal and pelvis motion and arm swing. Improved L hip ext after manual Physical Therapy Plan Frequency and Duration Frequency of Treatment 2x/Week Duration of treatment (weeks) 12 Plan of Care Start Date 11/11/23 Plan of Care End Date 02/03/24 Next Visit Focus/Plan Next Note Type Treatment Note Next Visit Plan cont to work on innominate and hip mobility. review ball exercises; work on gait
--- NOTE | 2023-12-04 13:48 | PT.OTN ---
Current Diagnoses Trochanteric bursitis, left hip (12/04/23) Pain in right leg (12/04/23) Difficulty in walking, not elsewhere classified (12/04/23) Unsteadiness on feet (12/04/23) Physical Therapy Treatment Note PT-OP-A Visit Information Start: 11/10/23 17:40 Freq: Status: Active Protocol: Document 12/04/23 13:02 SP (Rec: 12/04/23 13:52 SP [id number]) Out-Patient Physical Therapy Visit Information Visit Information Visit Type Treatment Note Visit Note 10/27 Visit Start Time 13:02 Visit Stop Time 13:48 Visit Number 7 Number of SUPPORT SERVICE TECH Visits 1 PT-OP-B Current Condition Start: 11/10/23 17:40 Freq: Status: Active Protocol: Document 11/11/23 13:53 LR (Rec: 11/11/23 15:19 [facility] [id number]) Current Condition History of Current Condition Current Complaints L hip lat, lumbar pain, R ischial tub History of Current Condition hx of dx from neurosuregon L5- S1 OA. THis August pt had in begininning challenging to walk 1 flat mile w/o L post Lat hip pain. Had pain in R glute pain around ischial tub ed of august when did lots of gardening . Mar 2022 had severe LBP like he'd never had and couldn't stand w/o helping him or walking stick to get to the bathroom. Then Juan Ramon had covid and was hospitalizated w/Afib, heart infection and stroke. Had watchman heart implant apr 2023. at end of august this year, came home from vacation and did a lot of gardening tasks Had to try to stretch and rolli t out to keep him moving . Had some weakness in front of L thigh. things are starting to get a little better. Still can't do a full loop of [employer]. did it once but it was rough where B calves and L lat hip tightness and weakness of legs. Back gets stiff and can be hard to get standing straight up when getting up. Sleeping now is better. He was having insomnia but not due to pain in August. Now sleeping through the night . Was given ext stretches for back and initially helped but then seemed to get worse, so now avoiding it. Normal activity is walking 1-2 miles like [place], doing a lot of landscaping and gardening w/o breaks for 3 hours(now has to take breaks every 30 min or less). Does stationary bike especially in winter daily. Has lumbar issues from time to time that seemed more musclar in the past. R QL would lock up on him sometimes. This has been on/off for 15-20 years w/ o injury. Had PT in fall of 2021 for neck and had started to address back some then. Pt is a retired massage therapist . Treatment Goals Patient/Caregiver Goals improved strength and balance and flexiblity; assess whats is going on PT-OP-C Subjective Start: 11/10/23 17:40 Freq: Status: Active Protocol: Document 12/04/23 13:02 SP (Rec: 12/04/23 13:52 SP [id number]) OP-PT Subjective Patient Comments Patient Comments Is walking approx 1-1.5 mile, including inclines, tried 2 miles and was to much, Limiting factor is tightness and turns into huynh pain in anterior L hip. Has to stop and manual STms to R anterior hip and stretch pre/during/ post walks. Was trying to be better about proper increase gait as instructed last tx with PT, lot to think about. PT-OP-D Balance Start: 11/10/23 17:40 Freq: Status: Active Protocol: Document 11/11/23 13:53 [facility] (Rec: 11/11/23 15:19 [facility] [id number]) Balance Tests Single Limb Standing Single Limb- Right 26 sec Single Limb- Left 8 sec w/inc deviation PT-OP-F Manual Assessment Start: 11/10/23 17:40 Freq: Status: Active Protocol: Document 11/11/23 13:53 [facility] (Rec: 11/11/23 15:19 [facility] [id number]) Manual Assessments Joint Mobility Assessment Joint Mobility Assessment R iliac crest higher, equal greater trochanter height PT-OP-G Mobility & Gait Start: 11/10/23 17:40 Freq: Status: Active Protocol: Document 11/11/23 13:53 [facility] (Rec: 11/11/23 15:19 [facility] [id number]) OP Gait Assessment Comments Gait Comments very rigid, dec B push off, good arm swing but no hip ext or trunk movement PT-OP-J Posture/Palpation/Skin Start: 11/10/23 17:40 Freq: Status: Active Protocol: Document 11/11/23 13:53 [facility] (Rec: 11/11/23 15:19 [facility] [id number]) Posture Evaluation [facility] Postural Classification System Rm Postural Classifications Posterior/Anterior Vertical Compression Test 0 Lumbar Protective Mechanism Left AP 0 Lumbar Protective Mechanism Right AP 0 Lumbar Protective Mechanism Left PA 1 Lumbar Protective Mechanism Right PA 1 Comments Posture Comments L foot turned out >R, L pelvic shear, R SB & rot, dec lordosis and inc kyphosis, flex at hips and flexed at knees. PT-OP-K Range of Motion Start: 11/10/23 17:40 Freq: Status: Active Protocol: Document 11/11/23 13:53 [facility] (Rec: 11/11/23 15:19 [facility] [id number]) Lumbar Spine Range of Motion Lumbar Spine Active Percentage Testing Position Standing Flexion 20 Extension 5 Rotation Left 35 Rotation Right 25 Lateral Flexion Left 40 Lateral Flexion Right 50 ROM Limitations Soft Tissue Tightness Comments mid cruz w/o pelvis blocked, mid femur w/pelvis blocked; tightness R QL region w/B SB PT-OP-L Special Tests Start: 11/10/23 17:40 Freq: Status: Active Protocol: Document 11/11/23 13:53 [facility] (Rec: 11/11/23 15:19 [facility] [id number]) Special Tests Lumbar Spine Special Tests Manolo Test Results tight hip flexors & rectus femoris Straight Leg Raise Test Results 63 L; 68 r Slump Test Results slump and ext sit HS tightness PT-OP-M Strength Start: 11/10/23 17:40 Freq: Status: Active Protocol: Document 11/11/23 13:53 [facility] (Rec: 11/11/23 15:19 [facility] [id number]) Hip Strength Hip Manual Muscle Testing Right Flexion (L2) 3+ Fair+ Extension (S1) 3+ Fair+ Abduction 4 Good Adduction 4 Good External Rotation 4 Good Internal Rotation 5 Normal Left Flexion (L2) 3+ Fair+ Extension (S1) 3+ Fair+ Abduction 4- Good- Adduction 4- Good- External Rotation 3+ Fair+ Internal Rotation 4- Good- Knee Strength Knee Manual Muscle Testing Right Flexion (S2) 5 Normal Extension (L3) 5 Normal Left Flexion (S2) 4 Good Extension (L3) 4+ Good+ Ankle/Foot Strength Ankle and Foot Manual Muscle Testing B Dorsiflexion (L4) 5 Normal Plantarflexion (S1) 5 Normal Comments PF tested seated PT-OP-Q Treatments Start: 11/10/23 17:40 Freq: Status: Active Protocol: Document 12/04/23 13:02 SP (Rec: 12/04/23 13:52 SP [id number]) Gym Equipment Therapeutic Ball seated Exercise Details max cues /c 1 Ball Size/Color green 65cm Reps/Duration 15 ea Comments 1. pelvic tilts 12/03 only end tx 2. pelvic circles B 3. marches B 4. sit backs * Much time isolating posture, less LE and back recruitment improved LS and pelvic tilts with slower pacing verbal and tactile cues Sport Cord back Cord/Resistance red Reps/Duration 10 Comments cues inc step length, noted improved L hip extension ROM with reps post manual and stretching fwd Cord/Resistance red Reps/Duration 10 Comments cues push off and wt shift COG over KAREN, 4>8 step, slower pacing cued improved stability and L hip extension mobility. Therapeutic Exercises Supine Exercises stretch Supine Exercise Name 1. piriformis 2. active HS stretch 3 modified Manolo stretch Side bilateral Equipment Used Manolo stretch use strap KTC support Reps/Minutes 1. 60 sec 2.6 sec X 5 3. 60 sec with AAROM knee flexion opp LE KTC Comments 12/03 only Manolo stretch today post manual Gait Training Gait Activity gait Distance/Duration 50x4 Comments working on inc arm swing and push off Manual Therapy Treatment Consent Patient gave verbal consent for manual Yes treatment Soft Tissue Mobilization hip flexor Body Location L RF, inguinal lig, iliopsoas Mobilization Type Sustained Pressure Intensity/Depth Moderate Comments hookyling, L SL R LE KTC /c strap, AAROM and contract relax MWM hip ext faciliaton Joint Mobilizations innominate Joint L Comments s/l R add FM L contract relax hip ant/posterior AAROM and contract hip flexion isometric then relax into ext. Improved hip flexion. hip Comments L ER/IR FM free ball /c mobility strap PT-OP-T Assessment and Plan Start: 11/10/23 17:40 Freq: Status: Active Protocol: Document 12/04/23 13:02 SP (Rec: 12/04/23 13:52 SP [id number]) Physical Therapy Assessment Goals balance Short Term Goal (STG) Pt will be able to balance in SLS at least 10 sec on LLE w/o pain STG Duration 12/09 Snf Goal (LTG) Pt will be able to balance in SLS for 30 sec B to show improved stabiltiy LTG Duration 01/18 strength Short Term Goal (STG) Pt will be indep w/HEP STG Duration 12/19 Telephone Order Supervisor Goal (LTG) Pt will score at least 4+/5 on all LE MMT and at least 3/5 on LPM to show improved stability to allow greater ease w/mobility. LTG Duration 02/02 activities Short Term Goal (STG) Pt will be able to do transitions between positions (sit to stand/out of bed) w/o feeling bent over when initially standing STG Duration 12/19 Telephone Order Supervisor Goal (LTG) Pt will report being able to walk more regularly and be able to do hills and longer walks w/o inc pain greater than 2/10 after LTG Duration 01/18 Assessment Summary Assessment Pt reported decrease L anterior hip tension and L pelvic mobility post manual and stretching. Improved pelvic tilt mechanics sitting on 65 cmwith education cuing and able to inhibit back and LE recruitment for carryover home application proper form. Pt noted improve L hip extension mechanics, able to progress resisted step up and back down with better control during rep progression. FUrther education carryover walking stride L hip extension awareness after sport cord and carryover into daily gait. Physical Therapy Plan Frequency and Duration Frequency of Treatment 2x/Week Duration of treatment (weeks) 12 Plan of Care Start Date 11/11/23 Plan of Care End Date 02/03/24 Therapeutic Interventions Therapeutic Interventions Balance Training,Gait Training ,Home Exercise Program,Joint Mobilizations,Manual Therapy, Neuromuscular Re-education, Patient/Caregiver Education, Self-Care/Home Management,Soft Tissue Mobilization,Taping, Therapeutic Activities, Therapeutic Exercises Modalities Cold Pack/Ice Massage,Electric Stimulation,Hot Packs, Traction- Mechanical Next Visit Focus/Plan Next Note Type Treatment Note Next Visit Plan cont to work on innominate and hip mobility. review ball exercises; work on gait hip flexion, LE extension and LS mobility.
--- NOTE | 2023-12-08 11:15 | PT.OTN ---
Current Diagnoses Trochanteric bursitis, left hip (12/08/23) Pain in right leg (12/08/23) Difficulty in walking, not elsewhere classified (12/08/23) Unsteadiness on feet (12/08/23) Physical Therapy Treatment Note PT-OP-A Visit Information Start: 11/10/23 17:40 Freq: Status: Active Protocol: Document 12/08/23 10:37 SP (Rec: 12/08/23 11:19 SP [id number]) Out-Patient Physical Therapy Visit Information Visit Information Visit Type Treatment Note Visit Note 11/27 Visit Start Time 10:37 Visit Stop Time 11:15 Visit Number 8 Number of RESIDENTIAL SERVICE TECHNICIAN Visits 2 PT-OP-B Current Condition Start: 11/10/23 17:40 Freq: Status: Active Protocol: Document 11/11/23 13:53 LR (Rec: 11/11/23 15:19 [facility] [id number]) Current Condition History of Current Condition Current Complaints L hip lat, lumbar pain, R ischial tub History of Current Condition hx of dx from neurosuregon L5- S1 OA. THis August pt had in begininning challenging to walk 1 flat mile w/o L post Lat hip pain. Had pain in R glute pain around ischial tub ed of august when did lots of gardening . Mar 2022 had severe LBP like he'd never had and couldn't stand w/o helping him or walking stick to get to the bathroom. Then Juan Ramon had covid and was hospitalizated w/Afib, heart infection and stroke. Had watchman heart implant apr 2023. at end of august this year, came home from vacation and did a lot of gardening tasks Had to try to stretch and rolli t out to keep him moving . Had some weakness in front of L thigh. things are starting to get a little better. Still can't do a full loop of [employer] did it once but it was rough where B calves and L lat hip tightness and weakness of legs. Back gets stiff and can be hard to get standing straight up when getting up. Sleeping now is better. He was having insomnia but not due to pain in August. Now sleeping through the night . Was given ext stretches for back and initially helped but then seemed to get worse, so now avoiding it. Normal activity is walking 1-2 miles [place], doing a lot of landscaping and gardening w/o breaks for 3 hours(now has to take breaks every 30 min or less). Does stationary bike especially in winter daily. Has lumbar issues from time to time that seemed more musclar in the past. R QL would lock up on him sometimes. This has been on/off for 15-20 years w/ o injury. Had PT in fall of 2021 for neck and had started to address back some then. Pt is a retired massage therapist . Treatment Goals Patient/Caregiver Goals improved strength and balance and flexiblity; assess whats is going on PT-OP-C Subjective Start: 11/10/23 17:40 Freq: Status: Active Protocol: Document 12/08/23 10:37 SP (Rec: 12/08/23 11:19 SP [id number]) OP-PT Subjective Patient Comments Patient Comments Pt reports gaining flexibility in L anterior hip, feeling longer extension stride on L. He is notiicing weakness tiring lateral L hip when walking. PT-OP-D Balance Start: 11/10/23 17:40 Freq: Status: Active Protocol: Document 11/11/23 13:53 [facility] (Rec: 11/11/23 15:19 [facility] [id number]) Balance Tests Single Limb Standing Single Limb- Right 26 sec Single Limb- Left 8 sec w/inc deviation PT-OP-F Manual Assessment Start: 11/10/23 17:40 Freq: Status: Active Protocol: Document 11/11/23 13:53 [facility] (Rec: 11/11/23 15:19 [facility] [id number]) Manual Assessments Joint Mobility Assessment Joint Mobility Assessment R iliac crest higher, equal greater trochanter height PT-OP-G Mobility & Gait Start: 11/10/23 17:40 Freq: Status: Active Protocol: Document 11/11/23 13:53 LR (Rec: 11/11/23 15:19 [facility] [id number]) OP Gait Assessment Comments Gait Comments very rigid, dec B push off, good arm swing but no hip ext or trunk movement PT-OP-J Posture/Palpation/Skin Start: 11/10/23 17:40 Freq: Status: Active Protocol: Document 11/11/23 13:53 [facility] (Rec: 11/11/23 15:19 [facility] [id number]) Posture Evaluation Rm Postural Classification System Rm Postural Classifications Posterior/Anterior Vertical Compression Test 0 Lumbar Protective Mechanism Left AP 0 Lumbar Protective Mechanism Right AP 0 Lumbar Protective Mechanism Left PA 1 Lumbar Protective Mechanism Right PA 1 Comments Posture Comments L foot turned out >R, L pelvic shear, R SB & rot, dec lordosis and inc kyphosis, flex at hips and flexed at knees. PT-OP-K Range of Motion Start: 11/10/23 17:40 Freq: Status: Active Protocol: Document 11/11/23 13:53 [facility] (Rec: 11/11/23 15:19 [facility] [id number]) Lumbar Spine Range of Motion Lumbar Spine Active Percentage Testing Position Standing Flexion 20 Extension 5 Rotation Left 35 Rotation Right 25 Lateral Flexion Left 40 Lateral Flexion Right 50 ROM Limitations Soft Tissue Tightness Comments mid cruz w/o pelvis blocked, mid femur w/pelvis blocked; tightness R QL region w/B SB PT-OP-L Special Tests Start: 11/10/23 17:40 Freq: Status: Active Protocol: Document 11/11/23 13:53 [facility] (Rec: 11/11/23 15:19 [facility] [id number]) Special Tests Lumbar Spine Special Tests Manolo Test Results tight hip flexors & rectus femoris Straight Leg Raise Test Results 63 L; 68 r Slump Test Results slump and ext sit HS tightness PT-OP-M Strength Start: 11/10/23 17:40 Freq: Status: Active Protocol: Document 11/11/23 13:53 [facility] (Rec: 11/11/23 15:19 [facility] [id number]) Hip Strength Hip Manual Muscle Testing Right Flexion (L2) 3+ Fair+ Extension (S1) 3+ Fair+ Abduction 4 Good Adduction 4 Good External Rotation 4 Good Internal Rotation 5 Normal Left Flexion (L2) 3+ Fair+ Extension (S1) 3+ Fair+ Abduction 4- Good- Adduction 4- Good- External Rotation 3+ Fair+ Internal Rotation 4- Good- Knee Strength Knee Manual Muscle Testing Right Flexion (S2) 5 Normal Extension (L3) 5 Normal Left Flexion (S2) 4 Good Extension (L3) 4+ Good+ Ankle/Foot Strength Ankle and Foot Manual Muscle Testing B Dorsiflexion (L4) 5 Normal Plantarflexion (S1) 5 Normal Comments PF tested seated PT-OP-Q Treatments Start: 11/10/23 17:40 Freq: Status: Active Protocol: Document 12/08/23 10:37 SP (Rec: 12/08/23 11:19 SP [id number]) Therapeutic Exercises Supine Exercises bridge Supine Exercise Name segmental- added to HEP Side bilateral Resistance AROM> TB #3 samish green at thighs Reps/Minutes 15 Comments cued maintain knees apart stretch Supine Exercise Name 1. piriformis 2. active HS stretch 3 modified Manolo stretch Side bilateral Equipment Used 1. 60 sec 2-3. use strap support hold leg Reps/Minutes 1. 60 sec 2. static & AP 3. 60 sec with AAROM knee flexion opp LE KTC Comments good feedback stretch all around hip Sidelying Exercises hip abd Sidelying Exercise Name added toHEP Side bilateral Resistance AROM Equipment Used bottom knee bent, top arm on table kickstand assist on side Reps/Minutes x10 Comments tactile cue on side alignment- good glut med tiring Manual Therapy Treatment Soft Tissue Mobilization hip flexor Body Location L RF, TFL, inguinal lig, iliopsoas Mobilization Type Sustained Pressure Intensity/Depth Moderate Comments hookyling, L SL R LE KTC /c strap, AAROM and contract relax MWM hip ext faciliaton Joint Mobilizations innominate Joint L Comments s/l R add FM L contract relax hip ant/posterior AAROM and contract hip flexion isometric then relax into ext. Improved hip flexion. hip Comments L ER/IR FM free ball /c mobility strap Neuro Re-Education Treatment Balance Activities SLS Comments L 10 sec, 17 sec R 19 sec, 24 sec PT-OP-T Assessment and Plan Start: 11/10/23 17:40 Freq: Status: Active Protocol: Document 12/08/23 10:37 SP (Rec: 12/08/23 11:19 SP [id number]) Physical Therapy Assessment Goals balance Short Term Goal (STG) Pt will be able to balance in SLS at least 10 sec on LLE w/o pain 12/08/23: GOAL MET LLE 17 sec, RLE 24 sec. STG Duration 12/09 GOAL MET 12/08/23 [employer]coding Center Manager Goal (LTG) Pt will be able to balance in SLS for 30 sec B to show improved stabiltiy LTG Duration 01/18 strength Short Term Goal (STG) Pt will be indep w/HEP 12/08/23: Stretching LEs, added hip abd and hipabd bridge TB #3. STG Duration 12/19 progression 12/08/23 Fpc Goal (LTG) Pt will score at least 4+/5 on all LE MMT and at least 3/5 on LPM to show improved stability to allow greater ease w/mobility. LTG Duration 02/02 activities Short Term Goal (STG) Pt will be able to do transitions between positions (sit to stand/out of bed) w/o feeling bent over when initially standing 12/08/23: post manual in PT feels fine no tension in hip or back. Will pay attention early am by next tx, how progressing. STG Duration 12/19 progressing 12/08/23 [employer] Center Manager Goal (LTG) Pt will report being able to walk more regularly and be able to do hills and longer walks w/o inc pain greater than 2/10 after LTG Duration 01/18 Assessment Summary Assessment Pt improved hip flexion ( anterior tilt) post manual max cues for proper form pelvic tilt isolation seated on 65cm tball (per pt request is wanted to do at home again). Added hip abd strengthening on side and resisted abd bridge to support stability support for endurance gait reports feels really fatigued lateral hips when walking. Pt improved SLS time L 17 sec and R 24 sec. Physical Therapy Plan Frequency and Duration Frequency of Treatment 2x/Week Duration of treatment (weeks) 12 Plan of Care Start Date 11/11/23 Plan of Care End Date 02/03/24 Therapeutic Interventions Therapeutic Interventions Balance Training,Gait Training ,Home Exercise Program,Joint Mobilizations,Manual Therapy, Neuromuscular Re-education, Patient/Caregiver Education, Self-Care/Home Management,Soft Tissue Mobilization,Taping, Therapeutic Activities, Therapeutic Exercises Modalities Cold Pack/Ice Massage,Electric Stimulation,Hot Packs, Traction- Mechanical Next Visit Focus/Plan Next Note Type Treatment Note Next Visit Plan Next tx: review seated tball ex, resisted leg ext and abd added last tx. PT POC: cont to work on innominate and hip mobility. ; work on gait hip flexion, LE extension and LS mobility.
--- NOTE | 2023-12-11 14:30 | PT.OTN ---
Current Diagnoses Trochanteric bursitis, left hip (12/11/23) Pain in right leg (12/11/23) Difficulty in walking, not elsewhere classified (12/11/23) Unsteadiness on feet (12/11/23) Physical Therapy Treatment Note PT-OP-A Visit Information Start: 11/10/23 17:40 Freq: Status: Active Protocol: Document 12/11/23 13:51 SP (Rec: 12/11/23 14:34 SP [id number]) Out-Patient Physical Therapy Visit Information Visit Information Visit Type Treatment Note Visit Note 12/28 Visit Start Time 13:51 Visit Stop Time 14:30 Visit Number 9 Number of DIRECTOR OF RESIDENCE LIFE Visits 3 PT-OP-B Current Condition Start: 11/10/23 17:40 Freq: Status: Active Protocol: Document 11/11/23 13:53 LR (Rec: 11/11/23 15:19 [facility] [id number]) Current Condition History of Current Condition Current Complaints L hip lat, lumbar pain, R ischial tub History of Current Condition hx of dx from neurosuregon L5- S1 OA. THis August pt had in begininning challenging to walk 1 flat mile w/o L post Lat hip pain. Had pain in R glute pain around ischial tub ed of august when did lots of gardening . Mar 2022 had severe LBP like he'd never had and couldn't stand w/o helping him or walking stick to get to the bathroom. Then Juan Raomn had covid and was hospitalizated w/Afib, heart infection and stroke. Had watchman heart implant apr 2023. at end of august this year, came home from vacation and did a lot of gardening tasks Had to try to stretch and rolli t out to keep him moving . Had some weakness in front of L thigh. things are starting to get a little better. Still can't do a full loop of [employer]. did it once but it was rough where B calves and L lat hip tightness and weakness of legs. Back gets stiff and can be hard to get standing straight up when getting up. Sleeping now is better. He was having insomnia but not due to pain in August. Now sleeping through the night . Was given ext stretches for back and initially helped but then seemed to get worse, so now avoiding it. Normal activity is walking 1-2 miles like [place] loop, doing a lot of landscaping and gardening w/o breaks for 3 hours(now has to take breaks every 30 min or less). Does stationary bike especially in winter daily. Has lumbar issues from time to time that seemed more musclar in the past. R QL would lock up on him sometimes. This has been on/off for 15-20 years w/ o injury. Had PT in fall of 2021 for neck and had started to address back some then. Pt is a retired massage therapist . Treatment Goals Patient/Caregiver Goals improved strength and balance and flexiblity; assess whats is going on PT-OP-C Subjective Start: 11/10/23 17:40 Freq: Status: Active Protocol: Document 12/11/23 13:51 SP (Rec: 12/11/23 14:34 SP [id number]) OP-PT Subjective Patient Comments Patient Comments Pt reported that was able to walk level surfaces at [place] and up first incline with no pain anterior hips, then came back down due to hasn't built up endurance to walk full park yet but will try and see what able to do this weekend. Hips little tired but not as bad, thinks the side hip exercise is helping added last tx. PT-OP-D Balance Start: 11/10/23 17:40 Freq: Status: Active Protocol: Document 11/11/23 13:53 [facility] (Rec: 11/11/23 15:19 [facility] [id number]) Balance Tests Single Limb Standing Single Limb- Right 26 sec Single Limb- Left 8 sec w/inc deviation PT-OP-F Manual Assessment Start: 11/10/23 17:40 Freq: Status: Active Protocol: Document 11/11/23 13:53 [facility] (Rec: 11/11/23 15:19 [facility] [id number]) Manual Assessments Joint Mobility Assessment Joint Mobility Assessment R iliac crest higher, equal greater trochanter height PT-OP-G Mobility & Gait Start: 11/10/23 17:40 Freq: Status: Active Protocol: Document 11/11/23 13:53 [facility] (Rec: 11/11/23 15:19 [facility] [id number]) OP Gait Assessment Comments Gait Comments very rigid, dec B push off, good arm swing but no hip ext or trunk movement PT-OP-J Posture/Palpation/Skin Start: 11/10/23 17:40 Freq: Status: Active Protocol: Document 11/11/23 13:53 [facility] (Rec: 11/11/23 15:19 [facility] [id number]) Posture Evaluation [facility] Postural Classification System Rm Postural Classifications Posterior/Anterior Vertical Compression Test 0 Lumbar Protective Mechanism Left AP 0 Lumbar Protective Mechanism Right AP 0 Lumbar Protective Mechanism Left PA 1 Lumbar Protective Mechanism Right PA 1 Comments Posture Comments L foot turned out >R, L pelvic shear, R SB & rot, dec lordosis and inc kyphosis, flex at hips and flexed at knees. PT-OP-K Range of Motion Start: 11/10/23 17:40 Freq: Status: Active Protocol: Document 11/11/23 13:53 [facility] (Rec: 11/11/23 15:19 [facility] [id number]) Lumbar Spine Range of Motion Lumbar Spine Active Percentage Testing Position Standing Flexion 20 Extension 5 Rotation Left 35 Rotation Right 25 Lateral Flexion Left 40 Lateral Flexion Right 50 ROM Limitations Soft Tissue Tightness Comments mid cruz w/o pelvis blocked, mid femur w/pelvis blocked; tightness R QL region w/B SB PT-OP-L Special Tests Start: 11/10/23 17:40 Freq: Status: Active Protocol: Document 11/11/23 13:53 [facility] (Rec: 11/11/23 15:19 [facility] [id number]) Special Tests Lumbar Spine Special Tests Manolo Test Results tight hip flexors & rectus femoris Straight Leg Raise Test Results 63 L; 68 r Slump Test Results slump and ext sit HS tightness PT-OP-M Strength Start: 11/10/23 17:40 Freq: Status: Active Protocol: Document 11/11/23 13:53 [facility] (Rec: 11/11/23 15:19 [facility] [id number]) Hip Strength Hip Manual Muscle Testing Right Flexion (L2) 3+ Fair+ Extension (S1) 3+ Fair+ Abduction 4 Good Adduction 4 Good External Rotation 4 Good Internal Rotation 5 Normal Left Flexion (L2) 3+ Fair+ Extension (S1) 3+ Fair+ Abduction 4- Good- Adduction 4- Good- External Rotation 3+ Fair+ Internal Rotation 4- Good- Knee Strength Knee Manual Muscle Testing Right Flexion (S2) 5 Normal Extension (L3) 5 Normal Left Flexion (S2) 4 Good Extension (L3) 4+ Good+ Ankle/Foot Strength Ankle and Foot Manual Muscle Testing B Dorsiflexion (L4) 5 Normal Plantarflexion (S1) 5 Normal Comments PF tested seated PT-OP-Q Treatments Start: 11/10/23 17:40 Freq: Status: Active Protocol: Document 12/11/23 13:51 SP (Rec: 12/11/23 14:34 SP [id number]) Therapeutic Exercises Sitting Exercises STS Sitting Exercise Name reviewed past activity Equipment Used mesh chair, arms across chest Reps/Minutes x10 Comments good form, easy Standing Exercises lunges Standing Exercise Name mini>deeper lunge (assimulate warehouse order picker item)-added to HEP /c HO Side bilateral Equipment Used inside //bar light contact x2 PRN, kneel pad under back knee target Reps/Minutes 2, 3, 5 reps Comments cued slight increase KAREN, front knee behind toes, hip hinge band walk Standing Exercise Name fwd, bwd, lateral- added to HEP /c HO Side bilateral Resistance Tb #2 at ankles Reps/Minutes 10 ft x2 laps each Comments cued DF and trail LE clearance . hip flexor Standing Exercise Name lunge stance- added to HEP /c HO Side bilateral Equipment Used hands on wall Reps/Minutes 30 sec Comments cued tall elongated spine, allow heel come up less calf Therapeutic Activity Therapeutic Activity on/off floor Name able complete use hands 1/2 kneel Reps/Minutes x2- I Comments squat to BUE on floor>side sit > supine>quadruped>1/2 kneel hands push off front knee or squat UEs push off floor>squat > stand sit to stand Name on off various surfaces functional strength- provided HO Reps/Minutes 2 reps each Comments 18 chair, 16 box, 12 box no UEs cues wt shift fwd, 8 box /c BUE min Self-Care/Home Management Treatment Education Patient Education Body Mechanics,Home Exercise Program,Posture,Safety Other Education Body Mechanics lunges and discussion warehouse order picker item on floor with back straight hip hinge slight increase KAREN for safety stability. Added lunges, bands walks, hip flexor lunge stance stretch and if wants to can trial STS from various surface for success increase functional mobility and BUE support as needed, hip hinge is esparza. Improved mobility. PT-OP-T Assessment and Plan Start: 11/10/23 17:40 Freq: Status: Active Protocol: Document 12/11/23 13:51 SP (Rec: 12/11/23 14:34 [id number]) Physical Therapy Assessment Goals balance Short Term Goal (STG) Pt will be able to balance in SLS at least 10 sec on LLE w/o pain 12/08/23: GOAL MET LLE 17 sec, RLE 24 sec. STG Duration 12/09 GOAL MET 12/08/23 Instrument Panel Assembler Goal (LTG) Pt will be able to balance in SLS for 30 sec B to show improved stabiltiy LTG Duration 01/18 strength Short Term Goal (STG) Pt will be indep w/HEP 12/08/23: Stretching LEs, added hip abd and hip abd bridge TB #3. 12/11/23: added lunges, band walk, squat to various surfaces. Hip flexor stretch STG Duration 12/19 progression 12/10/23 Jail Goal (LTG) Pt will score at least 4+/5 on all LE MMT and at least 3/5 on LPM to show improved stability to allow greater ease w/mobility. LTG Duration 02/02 activities Short Term Goal (STG) Pt will be able to do transitions between positions (sit to stand/out of bed) w/o feeling bent over when initially standing 12/08/23: post manual in PT feels fine no tension in hip or back. Will pay attention early am by next tx, how progressing. 12/11/23: very slight fwd tension but nothing like when started STG Duration 12/19 progressing 12/11/23 Instrument Panel Assembler Goal (LTG) Pt will report being able to walk more regularly and be able to do hills and longer walks w/o inc pain greater than 2/10 after 12/11/23: Progressing not consistant: walked [place] 12/07 and did well up inclines no pain. Will assess again this weekend. LTG Duration 01/18 almost met 12/11/23 Assessment Summary Assessment Pt tolerated tx well, reported improved L hip ROM into flexion, quad and hip abd tiring but not pain during and with functional activities quad/lunges/resisted walking. He was pleased able to squat to lower surfaces didn't know he could and able to get on/ off floor without use of outside items with [employer] suggestion performing supine and sidelying HEP on the floor . Physical Therapy Plan Frequency and Duration Frequency of Treatment 2x/Week Duration of treatment (weeks) 12 Plan of Care Start Date 11/11/23 Plan of Care End Date 02/03/24 Therapeutic Interventions Therapeutic Interventions Balance Training,Gait Training ,Home Exercise Program,Joint Mobilizations,Manual Therapy, Neuromuscular Re-education, Patient/Caregiver Education, Self-Care/Home Management,Soft Tissue Mobilization,Taping, Therapeutic Activities, Therapeutic Exercises Modalities Cold Pack/Ice Massage,Electric Stimulation,Hot Packs, Traction- Mechanical Next Visit Focus/Plan Next Note Type Progress Note Next Visit Plan PN next tx. Next tx: review and ask nini HEP band walk, lunges, lower surface STS, side hip abd, past seated tball ex. Trial uneven surface, stairs for hip ext LE strength. PT POC: cont to work on innominate and hip mobility; work on gait hip flexion, LE extension and continue LS mobility.
--- NOTE | 2023-12-18 16:04 | PT.OTN ---
Current Diagnoses Trochanteric bursitis, left hip (12/18/23) Pain in right leg (12/18/23) Difficulty in walking, not elsewhere classified (12/18/23) Unsteadiness on feet (12/18/23) Physical Therapy Treatment Note PT-OP-A Visit Information Start: 11/10/23 17:40 Freq: Status: Active Protocol: Document 12/18/23 10:32 NM (Rec: 12/18/23 11:17 NM [id number]) Out-Patient Physical Therapy Visit Information Visit Information Visit Type Progress Note Visit Start Time 10:33 Visit Stop Time 11:13 Visit Number 10 PT-OP-B Current Condition Start: 11/10/23 17:40 Freq: Status: Active Protocol: Document 11/11/23 13:53 LR (Rec: 11/11/23 15:19 [facility] [id number]) Current Condition History of Current Condition Current Complaints L hip lat, lumbar pain, R ischial tub History of Current Condition hx of dx from neurosuregon L5- S1 OA. THis August pt had in begininning challenging to walk 1 flat mile w/o L post Lat hip pain. Had pain in R glute pain around ischial tub ed of august when did lots of gardening . Mar 2022 had severe LBP like he'd never had and couldn't stand w/o helping him or walking stick to get to the bathroom. Then Juan Ramon had covid and was hospitalizated w/Afib, heart infection and stroke. Had watchman heart implant apr 2023. at end of august this year, came home from vacation and did a lot of gardening tasks Had to try to stretch and rolli t out to keep him moving . Had some weakness in front of L thigh. things are starting to get a little better. Still can't do a full loop of [employer]. did it once but it was rough where B calves and L lat hip tightness and weakness of legs. Back gets stiff and can be hard to get standing straight up when getting up. Sleeping now is better. He was having insomnia but not due to pain in August. Now sleeping through the night . Was given ext stretches for back and initially helped but then seemed to get worse, so now avoiding it. Normal activity is walking 1-2 miles like [place] loop, doing a lot of landscaping and gardening w/o breaks for 3 hours(now has to take breaks every 30 min or less). Does stationary bike especially in winter daily. Has lumbar issues from time to time that seemed more musclar in the past. R QL would lock up on him sometimes. This has been on/off for 15-20 years w/ o injury. Had PT in fall of 2021 for neck and had started to address back some then. Pt is a retired massage therapist . Treatment Goals Patient/Caregiver Goals improved strength and balance and flexiblity; assess whats is going on PT-OP-C Subjective Start: 11/10/23 17:40 Freq: Status: Active Protocol: Document 12/18/23 10:32 NM (Rec: 12/18/23 11:17 NM [id number]) OP-PT Subjective Patient Comments Patient Comments Pt reports that he is improving. However, not totally improved. He walked [employer], then had tired/sore feeling in anterior hip/quad. States that lateral hip feels better. If he stops /stretches, then feels better. Pt reports that last issued HEP is challenging, leland low box squat and lunge on pad. Pt denies having same pain that he had initially at evaluation , now 3-4/10; states occurs mainly with ambulation. States yesterday, he unloaded a lot of stuff from garage, taking several stairs while holding boxes PT-OP-D Balance Start: 11/10/23 17:40 Freq: Status: Active Protocol: Document 11/11/23 13:53 [facility] (Rec: 11/11/23 15:19 [facility] [id number]) Balance Tests Single Limb Standing Single Limb- Right 26 sec Single Limb- Left 8 sec w/inc deviation PT-OP-F Manual Assessment Start: 11/10/23 17:40 Freq: Status: Active Protocol: Document 11/11/23 13:53 LR (Rec: 11/11/23 15:19 [facility] [id number]) Manual Assessments Joint Mobility Assessment Joint Mobility Assessment R iliac crest higher, equal greater trochanter height PT-OP-G Mobility & Gait Start: 11/10/23 17:40 Freq: Status: Active Protocol: Document 11/11/23 13:53 [facility] (Rec: 11/11/23 15:19 [facility] [id number]) OP Gait Assessment Comments Gait Comments very rigid, dec B push off, good arm swing but no hip ext or trunk movement PT-OP-J Posture/Palpation/Skin Start: 11/10/23 17:40 Freq: Status: Active Protocol: Document 11/11/23 13:53 [facility] (Rec: 11/11/23 15:19 [facility] [id number]) Posture Evaluation [facility] Postural Classification System [facility] Postural Classifications Posterior/Anterior Vertical Compression Test 0 Lumbar Protective Mechanism Left AP 0 Lumbar Protective Mechanism Right AP 0 Lumbar Protective Mechanism Left PA 1 Lumbar Protective Mechanism Right PA 1 Comments Posture Comments L foot turned out >R, L pelvic shear, R SB & rot, dec lordosis and inc kyphosis, flex at hips and flexed at knees. PT-OP-K Range of Motion Start: 11/10/23 17:40 Freq: Status: Active Protocol: Document 11/11/23 13:53 [facility] (Rec: 11/11/23 15:19 [facility] [id number]) Lumbar Spine Range of Motion Lumbar Spine Active Percentage Testing Position Standing Flexion 20 Extension 5 Rotation Left 35 Rotation Right 25 Lateral Flexion Left 40 Lateral Flexion Right 50 ROM Limitations Soft Tissue Tightness Comments mid cruz w/o pelvis blocked, mid femur w/pelvis blocked; tightness R QL region w/B SB PT-OP-L Special Tests Start: 11/10/23 17:40 Freq: Status: Active Protocol: Document 11/11/23 13:53 [facility] (Rec: 11/11/23 15:19 [facility] [id number]) Special Tests Lumbar Spine Special Tests Manolo Test Results tight hip flexors & rectus femoris Straight Leg Raise Test Results 63 L; 68 r Slump Test Results slump and ext sit HS tightness PT-OP-M Strength Start: 11/10/23 17:40 Freq: Status: Active Protocol: Document 12/18/23 10:32 NM (Rec: 12/18/23 11:17 NM [id number]) Hip Strength Hip Manual Muscle Testing Right Flexion (L2) 3+ Fair+ Extension (S1) 3+ Fair+ Abduction 4 Good Adduction 4 Good External Rotation 4 Good Internal Rotation 5 Normal Comments 12/08/23: 4- flex, ext Left Flexion (L2) 3+ Fair+ Extension (S1) 3+ Fair+ Abduction 4- Good- Adduction 4- Good- External Rotation 3+ Fair+ Internal Rotation 4- Good- Comments 12/08/23: 4- flex, ext Knee Strength Knee Manual Muscle Testing Right Flexion (S2) 5 Normal Extension (L3) 5 Normal Left Flexion (S2) 4 Good Extension (L3) 4+ Good+ PT-OP-Q Treatments Start: 11/10/23 17:40 Freq: Status: Active Protocol: Document 12/18/23 10:32 NM (Rec: 12/18/23 11:17 NM [id number]) Therapeutic Exercises Sitting Exercises LAQ Sitting Exercise Name HEP Side bilateral Resistance level 1 band at ankles Reps/Minutes 2x10 Comments challenging and fatiguing d/t quad strength STS Sitting Exercise Name from 16 plinth > 18 plinth Side bilateral Reps/Minutes 3, 10 Comments challenging, edu to move slightly higher then gradually reduce depth Standing Exercises lateral step down Standing Exercise Name 1. hip hike contract-relax for QL, 2. lateral tap down Side bilateral Equipment Used 4 step, hand support for balance Reps/Minutes 1. 15, 2. 10 ea -tactile cue on hip and for hinge Comments L knee catches w/ ecc control, PT cueing at knee for stab lunges Standing Exercise Name mini>deeper lunge (assimulate merchandise pickup/receiving associate item)-HEP review Side bilateral Equipment Used kneel pad under knee, prn hand support balance Reps/Minutes 3x5 ea (L more challenging, requires cues control) Comments cued slight increase KAREN, front knee behind toes, hip hinge hip flexor Standing Exercise Name lunge stance: 1. hip ER, 2. hip IR Side bilateral Equipment Used hands on wall Reps/Minutes 30 sec ea Comments cued tall elongated spine; no pain at ant hip Manual Therapy Treatment Consent Patient gave verbal consent for manual Yes treatment Soft Tissue Mobilization hip flexor Body Location L RF, TFL, inguinal lig, iliopsoas Mobilization Type Sustained Pressure Intensity/Depth Moderate Body Position Hooklying Joint Mobilizations hip Direction inf, post, ant Grade III Reps/Duration 2x30 ea Comments supine and sidelying with functional movement, L more limited than R. Good tolerance with cueing for breathwork to limit guarding when moving into new ROM PT-OP-T Assessment and Plan Start: 11/10/23 17:40 Freq: Status: Active Protocol: Document 12/18/23 10:32 NM (Rec: 12/18/23 11:17 NM [id number]) Physical Therapy Assessment Goals balance Short Term Goal (STG) Pt will be able to balance in SLS at least 10 sec on LLE w/o pain 12/08/23: GOAL MET LLE 17 sec, RLE 24 sec. STG Duration 12/09 GOAL MET 12/08/23 Lumber Inspector Goal (LTG) Pt will be able to balance in SLS for 30 sec B to show improved stabiltiy LTG Duration 01/18 strength Short Term Goal (STG) Pt will be indep w/HEP 12/08/23: Stretching LEs, added hip abd and hip abd bridge TB #3. 12/11/23: added lunges, band walk, squat to various surfaces. Hip flexor stretch STG Duration 12/19 progression 12/10/23 Correction Goal (LTG) Pt will score at least 4+/5 on all LE MMT and at least 3/5 on LPM to show improved stability to allow greater ease w/mobility. LTG Duration 02/02 activities Short Term Goal (STG) Pt will be able to do transitions between positions (sit to stand/out of bed) w/o feeling bent over when initially standing 12/08/23: post manual in PT feels fine no tension in hip or back. Will pay attention early am by next tx, how progressing. 12/11/23: very slight fwd tension but nothing like when started STG Duration 12/19 progressing 12/11/23 Correction Goal (LTG) Pt will report being able to walk more regularly and be able to do hills and longer walks w/o inc pain greater than 2/10 after 12/11/23: Progressing not consistant: walked [place] 12/07 and did well up inclines no pain. Will assess again this weekend. LTG Duration 01/18 almost met 12/11/23 Progress Towards Goals Progress Towards Goals Progressing Toward Goals Assessment Summary Assessment Pt tolerated session well. Continues to lack hip mobility in L hip. LLE, especially quad/hip flexors and hip abductors, are more limited than RLE, evident during lunges and lateral step downs. Added LAQ with light resistance to challenge pt quad strength for improved knee stability on stairs and with gait. Requires 1 UE assist for balance on L. Pt responds well to manual treatment. Session emphasis on improved carryover with HEP and to facilitate hip/knee strength. Physical Therapy Plan Frequency and Duration Frequency of Treatment 2x/Week Duration of treatment (weeks) 12 Plan of Care Start Date 11/11/23 Plan of Care End Date 02/03/24 Therapeutic Interventions Therapeutic Interventions Balance Training,Gait Training ,Home Exercise Program,Joint Mobilizations,Manual Therapy, Neuromuscular Re-education, Patient/Caregiver Education, Self-Care/Home Management,Soft Tissue Mobilization,Taping, Therapeutic Activities, Therapeutic Exercises Modalities Cold Pack/Ice Massage,Electric Stimulation,Hot Packs, Traction- Mechanical Next Visit Focus/Plan Next Note Type Treatment Note Next Visit Plan cont emphasis with hip flexion , QL length. review lunges, side hip abd, past seated tball ex. Trial uneven surface , stairs for hip ext LE strength. PT POC: cont to work on innominate and hip mobility; work on gait hip flexion, LE extension and continue LS mobility.
--- NOTE | 2023-12-24 09:23 | PT.OTN ---
Current Diagnoses Trochanteric bursitis, left hip (12/24/23) Pain in right leg (12/24/23) Difficulty in walking, not elsewhere classified (12/24/23) Unsteadiness on feet (12/24/23) Physical Therapy Treatment Note PT-OP-A Visit Information Start: 11/10/23 17:40 Freq: Status: Active Protocol: Document 12/24/23 07:32 [facility] (Rec: 12/24/23 09:23 [facility] [id number]) Out-Patient Physical Therapy Visit Information Visit Information Visit Type Treatment Note Visit Note 05/30 Visit Start Time 07:33 Visit Stop Time 08:15 Visit Number 11 Number of EXTRACTION SUPERVISOR Visits 0 PT-OP-B Current Condition Start: 11/10/23 17:40 Freq: Status: Active Protocol: Document 11/11/23 13:53 [facility] (Rec: 11/11/23 15:19 [facility] [id number]) Current Condition History of Current Condition Current Complaints L hip lat, lumbar pain, R ischial tub History of Current Condition hx of dx from neurosuregon L5- S1 OA. THis August pt had in begininning challenging to walk 1 flat mile w/o L post Lat hip pain. Had pain in R glute pain around ischial tub ed of august when did lots of gardening . Mar 2022 had severe LBP like he'd never had and couldn't stand w/o helping him or walking stick to get to the bathroom. Then Juan Ramon had covid and was hospitalizated w/Afib, heart infection and stroke. Had watchman heart implant apr 2023. at end of august this year, came home from vacation and did a lot of gardening tasks Had to try to stretch and rolli t out to keep him moving . Had some weakness in front of L thigh. things are starting to get a little better. Still can't do a full loop of [employer]. did it once but it was rough where B calves and L lat hip tightness and weakness of legs. Back gets stiff and can be hard to get standing straight up when getting up. Sleeping now is better. He was having insomnia but not due to pain in August. Now sleeping through the night . Was given ext stretches for back and initially helped but then seemed to get worse, so now avoiding it. Normal activity is walking 1-2 miles like [employer] loop, doing a lot of landscaping and gardening w/o breaks for 3 hours(now has to take breaks every 30 min or less). Does stationary bike especially in winter daily. Has lumbar issues from time to time that seemed more musclar in the past. R QL would lock up on him sometimes. This has been on/off for 15-20 years w/ o injury. Had PT in fall of 2021 for neck and had started to address back some then. Pt is a retired massage therapist . Treatment Goals Patient/Caregiver Goals improved strength and balance and flexiblity; assess whats is going on PT-OP-C Subjective Start: 11/10/23 17:40 Freq: Status: Active Protocol: Document 12/24/23 07:32 [facility] (Rec: 12/24/23 09:23 [facility] [id number]) OP-PT Subjective Patient Comments Patient Comments Reports can walk a lot smoother. Did walk and had some tightness in ant hip. He did a lot of yard work with a lot of bending for about 1.5 hours. He was a little tight in midback but felt okay otherwise. Did notes some buttocks tightness episode but getting walking feels better. PT-OP-D Balance Start: 11/10/23 17:40 Freq: Status: Active Protocol: Document 11/11/23 13:53 [facility] (Rec: 11/11/23 15:19 [facility] [id number]) Balance Tests Single Limb Standing Single Limb- Right 26 sec Single Limb- Left 8 sec w/inc deviation PT-OP-F Manual Assessment Start: 11/10/23 17:40 Freq: Status: Active Protocol: Document 11/11/23 13:53 [facility] (Rec: 11/11/23 15:19 [facility] [id number]) Manual Assessments Joint Mobility Assessment Joint Mobility Assessment R iliac crest higher, equal greater trochanter height PT-OP-G Mobility & Gait Start: 11/10/23 17:40 Freq: Status: Active Protocol: Document 11/11/23 13:53 [facility] (Rec: 11/11/23 15:19 [facility] [id number]) OP Gait Assessment Comments Gait Comments very rigid, dec B push off, good arm swing but no hip ext or trunk movement PT-OP-J Posture/Palpation/Skin Start: 11/10/23 17:40 Freq: Status: Active Protocol: Document 11/11/23 13:53 [facility] (Rec: 11/11/23 15:19 [facility] [id number]) Posture Evaluation [facility] Postural Classification System Rm Postural Classifications Posterior/Anterior Vertical Compression Test 0 Lumbar Protective Mechanism Left AP 0 Lumbar Protective Mechanism Right AP 0 Lumbar Protective Mechanism Left PA 1 Lumbar Protective Mechanism Right PA 1 Comments Posture Comments L foot turned out >R, L pelvic shear, R SB & rot, dec lordosis and inc kyphosis, flex at hips and flexed at knees. PT-OP-K Range of Motion Start: 11/10/23 17:40 Freq: Status: Active Protocol: Document 11/11/23 13:53 [facility] (Rec: 11/11/23 15:19 [facility] [id number]) Lumbar Spine Range of Motion Lumbar Spine Active Percentage Testing Position Standing Flexion 20 Extension 5 Rotation Left 35 Rotation Right 25 Lateral Flexion Left 40 Lateral Flexion Right 50 ROM Limitations Soft Tissue Tightness Comments mid cruz w/o pelvis blocked, mid femur w/pelvis blocked; tightness R QL region w/B SB PT-OP-L Special Tests Start: 11/10/23 17:40 Freq: Status: Active Protocol: Document 11/11/23 13:53 [facility] (Rec: 11/11/23 15:19 [facility] [id number]) Special Tests Lumbar Spine Special Tests Manolo Test Results tight hip flexors & rectus femoris Straight Leg Raise Test Results 63 L; 68 r Slump Test Results slump and ext sit HS tightness PT-OP-M Strength Start: 11/10/23 17:40 Freq: Status: Active Protocol: Document 12/18/23 10:32 [facility] (Rec: 12/18/23 11:17 [facility] [id number]) Hip Strength Hip Manual Muscle Testing Right Flexion (L2) 3+ Fair+ Extension (S1) 3+ Fair+ Abduction 4 Good Adduction 4 Good External Rotation 4 Good Internal Rotation 5 Normal Comments 12/08/23: 4- flex, ext Left Flexion (L2) 3+ Fair+ Extension (S1) 3+ Fair+ Abduction 4- Good- Adduction 4- Good- External Rotation 3+ Fair+ Internal Rotation 4- Good- Comments 12/08/23: 4- flex, ext Knee Strength Knee Manual Muscle Testing Right Flexion (S2) 5 Normal Extension (L3) 5 Normal Left Flexion (S2) 4 Good Extension (L3) 4+ Good+ PT-OP-Q Treatments Start: 11/10/23 17:40 Freq: Status: Active Protocol: Document 12/24/23 07:32 [facility] (Rec: 12/24/23 09:23 [facility] [id number]) Therapeutic Exercises Prone Exercises plank Prone Exercise Name forearm and feet Side bilateral Reps/Minutes 20 sec, 25 sec Sidelying Exercises open book Side bilateral Reps/Minutes 15 ea sideplank Sidelying Exercise Name forearm and knees Side bilateral Reps/Minutes 30 sec R; 20 sec L Standing Exercises lateral step down Standing Exercise Name 1. hip hike 2. lateral tap down Side bilateral Equipment Used 4 step, hand support for balance Reps/Minutes 15 ea Comments max cues w/hip hike motion; step down cues hip hinge lunges Standing Exercise Name split squat Side bilateral Equipment Used mirror and prn hand raial Reps/Minutes 2x10 Comments cues for dec KAREN width, adjust length and knee tracking band walk Standing Exercise Name fwd, bwd, lateral- review HEP Side bilateral Resistance Tb #2 at ankles Reps/Minutes 20ft ea Comments cued DF and trail LE clearance . Other Exercises cat cow Reps/Minutes 10 Manual Therapy Treatment Consent Patient gave verbal consent for manual Yes treatment Soft Tissue Mobilization HS Body Location L Mobilization Type Rolling Intensity/Depth Moderate Body Position Supine Comments w/hip flex Joint Mobilizations hip Comments L IR hip on axis supine and IR free the ball and inf glide hooklying c/r PT-OP-T Assessment and Plan Start: 11/10/23 17:40 Freq: Status: Active Protocol: Document 12/24/23 07:32 [facility] (Rec: 12/24/23 09:23 [facility] [id number]) Physical Therapy Assessment Goals balance Short Term Goal (STG) Pt will be able to balance in SLS at least 10 sec on LLE w/o pain 12/08/23: GOAL MET LLE 17 sec, RLE 24 sec. STG Duration 12/09 GOAL MET 12/08/23 Group Home Goal (LTG) Pt will be able to balance in SLS for 30 sec B to show improved stabiltiy LTG Duration 01/18 strength Short Term Goal (STG) Pt will be indep w/HEP 12/08/23: Stretching LEs, added hip abd and hip abd bridge TB #3. 12/11/23: added lunges, band walk, squat to various surfaces. Hip flexor stretch djusted HEP to plank fwd/ side and standing exercises along w/cat/cow/open book. STG Duration 12/19 progression 12/10/23 Group Home Goal (LTG) Pt will score at least 4+/5 on all LE MMT and at least 3/5 on LPM to show improved stability to allow greater ease w/mobility. LTG Duration 02/02 activities Short Term Goal (STG) Pt will be able to do transitions between positions (sit to stand/out of bed) w/o feeling bent over when initially standing 12/08/23: post manual in PT feels fine no tension in hip or back. Will pay attention early am by next tx, how progressing. 12/11/23: very slight fwd tension but nothing like when started STG Duration 12/19 progressing 12/11/23 Bottling Room Worker Goal (LTG) Pt will report being able to walk more regularly and be able to do hills and longer walks w/o inc pain greater than 2/10 after 12/11/23: Progressing not consistant: walked [employer] 12/07 and did well up inclines no pain. Will assess again this weekend. LTG Duration 01/18 almost met 12/11/23 Assessment Summary Assessment Adjusted HEP to plank fwd/side and standing exercises along w/cat/cow/open book.He required a lot of cues w/ lunges and hip hikes today. Improved hip IR w/manual Physical Therapy Plan Frequency and Duration Frequency of Treatment 2x/Week Duration of treatment (weeks) 12 Plan of Care Start Date 11/11/23 Plan of Care End Date 02/03/24 Next Visit Focus/Plan Next Note Type Treatment Note Next Visit Plan cont lunge, step down and hip hike review, cont to work on innominate/hip mobility to dec pain, core stability
--- NOTE | 2023-12-29 08:58 | PT.OTN ---
Current Diagnoses Trochanteric bursitis, left hip (12/29/23) Pain in right leg (12/29/23) Difficulty in walking, not elsewhere classified (12/29/23) Unsteadiness on feet (12/29/23) Physical Therapy Treatment Note PT-OP-A Visit Information Start: 11/10/23 17:40 Freq: Status: Active Protocol: Document 12/29/23 08:20 [facility] (Rec: 12/29/23 09:06 [facility] [id number]) Out-Patient Physical Therapy Visit Information Visit Information Visit Type Treatment Note Visit Note 06/27 Visit Start Time 08:20 Visit Stop Time 08:58 Visit Number 12 Number of EMPLOYMENT ATTORNEY Visits 1 PT-OP-B Current Condition Start: 11/10/23 17:40 Freq: Status: Active Protocol: Document 11/11/23 13:53 [facility] (Rec: 11/11/23 15:19 [facility] [id number]) Current Condition History of Current Condition Current Complaints L hip lat, lumbar pain, R ischial tub History of Current Condition hx of dx from neurosuregon L5- S1 OA. THis August pt had in begininning challenging to walk 1 flat mile w/o L post Lat hip pain. Had pain in R glute pain around ischial tub ed of august when did lots of gardening . Mar 2022 had severe LBP like he'd never had and couldn't stand w/o helping him or walking stick to get to the bathroom. Then Juan Ramon had covid and was hospitalizated w/Afib, heart infection and stroke. Had watchman heart implant apr 2023. at end of august this year, came home from vacation and did a lot of gardening tasks Had to try to stretch and rolli t out to keep him moving . Had some weakness in front of L thigh. things are starting to get a little better. Still can't do a full loop of [employer]. did it once but it was rough where B calves and L lat hip tightness and weakness of legs. Back gets stiff and can be hard to get standing straight up when getting up. Sleeping now is better. He was having insomnia but not due to pain in August. Now sleeping through the night . Was given ext stretches for back and initially helped but then seemed to get worse, so now avoiding it. Normal activity is walking 1-2 miles like [place] loop, doing a lot of landscaping and gardening w/o breaks for 3 hours(now has to take breaks every 30 min or less). Does stationary bike especially in winter daily. Has lumbar issues from time to time that seemed more musclar in the past. R QL would lock up on him sometimes. This has been on/off for 15-20 years w/ o injury. Had PT in fall of 2021 for neck and had started to address back some then. Pt is a retired massage therapist . Treatment Goals Patient/Caregiver Goals improved strength and balance and flexiblity; assess whats is going on PT-OP-C Subjective Start: 11/10/23 17:40 Freq: Status: Active Protocol: Document 12/29/23 08:20 [facility] (Rec: 12/29/23 09:06 [facility] [id number]) OP-PT Subjective Patient Comments Patient Comments Pt reports was able to walk [employer] 3/4 distance clockwise and no pain but some tension over L TFL, mostly tiring. PT-OP-D Balance Start: 11/10/23 17:40 Freq: Status: Active Protocol: Document 11/11/23 13:53 [facility] (Rec: 11/11/23 15:19 [facility] [id number]) Balance Tests Single Limb Standing Single Limb- Right 26 sec Single Limb- Left 8 sec w/inc deviation PT-OP-F Manual Assessment Start: 11/10/23 17:40 Freq: Status: Active Protocol: Document 11/11/23 13:53 [facility] (Rec: 11/11/23 15:19 [facility] [id number]) Manual Assessments Joint Mobility Assessment Joint Mobility Assessment R iliac crest higher, equal greater trochanter height PT-OP-G Mobility & Gait Start: 11/10/23 17:40 Freq: Status: Active Protocol: Document 11/11/23 13:53 [facility] (Rec: 11/11/23 15:19 [facility] [id number]) OP Gait Assessment Comments Gait Comments very rigid, dec B push off, good arm swing but no hip ext or trunk movement PT-OP-J Posture/Palpation/Skin Start: 11/10/23 17:40 Freq: Status: Active Protocol: Document 11/11/23 13:53 [facility] (Rec: 11/11/23 15:19 [facility] [id number]) Posture Evaluation Rm Postural Classification System Rm Postural Classifications Posterior/Anterior Vertical Compression Test 0 Lumbar Protective Mechanism Left AP 0 Lumbar Protective Mechanism Right AP 0 Lumbar Protective Mechanism Left PA 1 Lumbar Protective Mechanism Right PA 1 Comments Posture Comments L foot turned out >R, L pelvic shear, R SB & rot, dec lordosis and inc kyphosis, flex at hips and flexed at knees. PT-OP-K Range of Motion Start: 11/10/23 17:40 Freq: Status: Active Protocol: Document 11/11/23 13:53 [facility] (Rec: 11/11/23 15:19 [facility] [id number]) Lumbar Spine Range of Motion Lumbar Spine Active Percentage Testing Position Standing Flexion 20 Extension 5 Rotation Left 35 Rotation Right 25 Lateral Flexion Left 40 Lateral Flexion Right 50 ROM Limitations Soft Tissue Tightness Comments mid cruz w/o pelvis blocked, mid femur w/pelvis blocked; tightness R QL region w/B SB PT-OP-L Special Tests Start: 11/10/23 17:40 Freq: Status: Active Protocol: Document 11/11/23 13:53 [facility] (Rec: 11/11/23 15:19 [facility] [id number]) Special Tests Lumbar Spine Special Tests Manolo Test Results tight hip flexors & rectus femoris Straight Leg Raise Test Results 63 L; 68 r Slump Test Results slump and ext sit HS tightness PT-OP-M Strength Start: 11/10/23 17:40 Freq: Status: Active Protocol: Document 12/18/23 10:32 [facility] (Rec: 12/18/23 11:17 [facility] [id number]) Hip Strength Hip Manual Muscle Testing Right Flexion (L2) 3+ Fair+ Extension (S1) 3+ Fair+ Abduction 4 Good Adduction 4 Good External Rotation 4 Good Internal Rotation 5 Normal Comments 12/08/23: 4- flex, ext Left Flexion (L2) 3+ Fair+ Extension (S1) 3+ Fair+ Abduction 4- Good- Adduction 4- Good- External Rotation 3+ Fair+ Internal Rotation 4- Good- Comments 12/08/23: 4- flex, ext Knee Strength Knee Manual Muscle Testing Right Flexion (S2) 5 Normal Extension (L3) 5 Normal Left Flexion (S2) 4 Good Extension (L3) 4+ Good+ PT-OP-Q Treatments Start: 11/10/23 17:40 Freq: Status: Active Protocol: Document 12/29/23 08:20 [facility] (Rec: 12/29/23 09:06 [facility] [id number]) Therapeutic Exercises Supine Exercises bridge Supine Exercise Name segmental- added to HEP Side bilateral Resistance AROM> TB #3 [place] at thighs Reps/Minutes 15 Comments cued maintain knees apart Prone Exercises plank Prone Exercise Name forearm and feet- fwd Side bilateral Reps/Minutes 20 sec, 25 sec Comments occ cues for lift pelvis, sinks with time Sidelying Exercises sideplank Sidelying Exercise Name forearm and knees Side bilateral Reps/Minutes 30 sec R; 20 sec L Comments cued little higher lift Sitting Exercises LAQ Sitting Exercise Name HEP Side bilateral Resistance level 1 band at ankles Reps/Minutes 2x10 Comments challenging and fatiguing d/t quad strength Standing Exercises golf swing Standing Exercise Name post AROM stretching Comments wow can rotate better. lateral step down Standing Exercise Name 1. hip hike- floor 2. lateral tap down- 4 step Side bilateral Equipment Used 4 step, hand support for balance, front mirror Reps/Minutes 15 ea Comments max cues w/hip hike motion; step down cues hip hinge lunges Standing Exercise Name split squat Side bilateral Equipment Used mirror and prn counteer Reps/Minutes 2x10 Comments cues for knee tracking with feet, knees WBOS band walk Standing Exercise Name fwd, bwd, lateral- review HEP Side bilateral Resistance Tb #4>3 at ankles Reps/Minutes 20ft ea Comments cued DF heel toe fwd, toe heel back stepping, arms across chest. Quadratus stretch Standing Exercise Name sink- QL stretch Side bilateral Reps/Minutes 5 breaths Comments between activities- tactile cues for pelvic lateral tilt- good stretch hip flexor Standing Exercise Name lunge stance: 1. hip ER, 2. hip IR Side bilateral Equipment Used hands on TM rail Reps/Minutes 30 sec ea Comments cued tall elongated spine; no pain good anterior hip stretch Other Exercises self STMs Other Exercise Name ball wall: TFL, QL/ES, glut Side bilateral Comments good feedback self massage for tension reduction golf warm ups Other Exercise Name 1. TS partial swings 2. LS rotation 3. OH SB /c golf club , 4. sink stretch Side bilateral Resistance AROM- trialed Equipment Used 1. club behind back arms over 2. arms front 3. arms OH Reps/Minutes x5-10 reps each side, stretch 30 SH Comments good feedback increased thoracic and LS mobility PT-OP-T Assessment and Plan Start: 11/10/23 17:40 Freq: Status: Active Protocol: Document 12/29/23 08:20 [facility] (Rec: 12/29/23 09:06 [facility] [id number]) Physical Therapy Assessment Goals balance Short Term Goal (STG) Pt will be able to balance in SLS at least 10 sec on LLE w/o pain 12/08/23: GOAL MET LLE 17 sec, RLE 24 sec. STG Duration 12/09 GOAL MET 12/08/23 Fdc Goal (LTG) Pt will be able to balance in SLS for 30 sec B to show improved stabiltiy LTG Duration 01/18 strength Short Term Goal (STG) Pt will be indep w/HEP 12/08/23: Stretching LEs, added hip abd and hip abd bridge TB #3. 12/11/23: added lunges, band walk, squat to various surfaces. Hip flexor stretch djusted HEP to plank fwd/ side and standing exercises along w/cat/cow/open book. STG Duration 12/19 progression 12/24/23 Typist Goal (LTG) Pt will score at least 4+/5 on all LE MMT and at least 3/5 on LPM to show improved stability to allow greater ease w/mobility. LTG Duration 02/02 activities Short Term Goal (STG) Pt will be able to do transitions between positions (sit to stand/out of bed) w/o feeling bent over when initially standing 12/08/23: post manual in PT feels fine no tension in hip or back. Will pay attention early am by next tx, how progressing. 12/11/23: very slight fwd tension but nothing like when started STG Duration 12/19 progressing 12/11/23 Typist Goal (LTG) Pt will report being able to walk more regularly and be able to do hills and longer walks w/o inc pain greater than 2/10 after 12/11/23: Progressing not consistant: walked [employer] 12/07 and did well up inclines no pain. Will assess again this weekend. LTG Duration 01/18 almost met 12/11/23 Assessment Summary Assessment Pt required cuing for proper form hip hik, sink lateral pelvic tilt, and arms across over chest to decreased trunk compensation and allow increase lumbar musculature mobility. Pt good effort. GOod feedback response lessening of L QL tightness and able golf swing better end tx. Physical Therapy Plan Frequency and Duration Frequency of Treatment 2x/Week Duration of treatment (weeks) 12 Plan of Care Start Date 11/11/23 Plan of Care End Date 02/03/24 Therapeutic Interventions Therapeutic Interventions Balance Training,Gait Training ,Home Exercise Program,Joint Mobilizations,Manual Therapy, Neuromuscular Re-education, Patient/Caregiver Education, Self-Care/Home Management,Soft Tissue Mobilization,Taping, Therapeutic Activities, Therapeutic Exercises Modalities Cold Pack/Ice Massage,Electric Stimulation,Hot Packs, Traction- Mechanical Next Visit Focus/Plan Next Note Type Treatment Note Next Visit Plan Recheck HEP next appt is last appt discuss if need to coninue. POC: cont lunge, step down and hip hike review, cont to work on innominate/hip mobility to dec pain, core stability
--- NOTE | 2024-02-02 11:10 | PT.OTN ---
Current Diagnoses Trochanteric bursitis, left hip (02/02/24) Pain in right leg (02/02/24) Difficulty in walking, not elsewhere classified (02/02/24) Unsteadiness on feet (02/02/24) Physical Therapy Treatment Note PT-OP-A Visit Information Start: 11/10/23 17:40 Freq: Status: Active Protocol: Document 02/02/24 09:54 [facility] (Rec: 02/02/24 11:10 [facility] [id number]) Out-Patient Physical Therapy Visit Information Visit Information Visit Type Progress Note Visit Note 04/29 Visit Start Time 09:53 Visit Stop Time 10:31 Visit Number 13 Number of WELT STITCHER Visits 0 PT-OP-B Current Condition Start: 11/10/23 17:40 Freq: Status: Active Protocol: Document 11/11/23 13:53 [facility] (Rec: 11/11/23 15:19 [facility] [id number]) Current Condition History of Current Condition Current Complaints L hip lat, lumbar pain, R ischial tub History of Current Condition hx of dx from neurosuregon L5- S1 OA. THis August pt had in begininning challenging to walk 1 flat mile w/o L post Lat hip pain. Had pain in R glute pain around ischial tub ed of august when did lots of gardening . Mar 2022 had severe LBP like he'd never had and couldn't stand w/o helping him or walking stick to get to the bathroom. Then Juan Ramon had covid and was hospitalizated w/Afib, heart infection and stroke. Had watchman heart implant apr 2023. at end of august this year, came home from vacation and did a lot of gardening tasks Had to try to stretch and rolli t out to keep him moving . Had some weakness in front of L thigh. things are starting to get a little better. Still can't do a full loop of [place]. did it once but it was rough where B calves and L lat hip tightness and weakness of legs. Back gets stiff and can be hard to get standing straight up when getting up. Sleeping now is better. He was having insomnia but not due to pain in August. Now sleeping through the night . Was given ext stretches for back and initially helped but then seemed to get worse, so now avoiding it. Normal activity is walking 1-2 miles like [place], doing a lot of landscaping and gardening w/o breaks for 3 hours(now has to take breaks every 30 min or less). Does stationary bike especially in winter daily. Has lumbar issues from time to time that seemed more musclar in the past. R QL would lock up on him sometimes. This has been on/off for 15-20 years w/ o injury. Had PT in fall of 2021 for neck and had started to address back some then. Pt is a retired massage therapist . Treatment Goals Patient/Caregiver Goals improved strength and balance and flexiblity; assess whats is going on PT-OP-C Subjective Start: 11/10/23 17:40 Freq: Status: Active Protocol: Document 02/02/24 09:54 [facility] (Rec: 02/02/24 11:10 [facility] [id number]) OP-PT Subjective Patient Comments Patient Comments Pt reports some min discomfort in L lat and ant hip when didnt stretch before doing work yesterday. Overall less pain. Had COVID so had to cancel last appt. Worst pain 4 /10 recently with longer walking. Lifting and bending okay. Patient Reported Progress Improving PT-OP-D Balance Start: 11/10/23 17:40 Freq: Status: Active Protocol: Document 11/11/23 13:53 [facility] (Rec: 11/11/23 15:19 [facility] [id number]) Balance Tests Single Limb Standing Single Limb- Right 26 sec Single Limb- Left 8 sec w/inc deviation PT-OP-F Manual Assessment Start: 11/10/23 17:40 Freq: Status: Active Protocol: Document 11/11/23 13:53 [facility] (Rec: 11/11/23 15:19 [facility] [id number]) Manual Assessments Joint Mobility Assessment Joint Mobility Assessment R iliac crest higher, equal greater trochanter height PT-OP-G Mobility & Gait Start: 11/10/23 17:40 Freq: Status: Active Protocol: Document 11/11/23 13:53 [facility] (Rec: 11/11/23 15:19 [facility] [id number]) OP Gait Assessment Comments Gait Comments very rigid, dec B push off, good arm swing but no hip ext or trunk movement PT-OP-J Posture/Palpation/Skin Start: 11/10/23 17:40 Freq: Status: Active Protocol: Document 02/02/24 09:54 [facility] (Rec: 02/02/24 11:10 [facility] [id number]) Posture Evaluation [facility] Postural Classification System Vertical Compression Test 3 Lumbar Protective Mechanism Left AP 2 Lumbar Protective Mechanism Right AP 2 Lumbar Protective Mechanism Left PA 2 Lumbar Protective Mechanism Right PA 2 PT-OP-K Range of Motion Start: 11/10/23 17:40 Freq: Status: Active Protocol: Document 11/11/23 13:53 [facility] (Rec: 11/11/23 15:19 [facility] [id number]) Lumbar Spine Range of Motion Lumbar Spine Active Percentage Testing Position Standing Flexion 20 Extension 5 Rotation Left 35 Rotation Right 25 Lateral Flexion Left 40 Lateral Flexion Right 50 ROM Limitations Soft Tissue Tightness Comments mid cruz w/o pelvis blocked, mid femur w/pelvis blocked; tightness R QL region w/B SB PT-OP-L Special Tests Start: 11/10/23 17:40 Freq: Status: Active Protocol: Document 11/11/23 13:53 [facility] (Rec: 11/11/23 15:19 [facility] [id number]) Special Tests Lumbar Spine Special Tests Manolo Test Results tight hip flexors & rectus femoris Straight Leg Raise Test Results 63 L; 68 r Slump Test Results slump and ext sit HS tightness PT-OP-M Strength Start: 11/10/23 17:40 Freq: Status: Active Protocol: Document 02/02/24 09:54 [facility] (Rec: 02/02/24 11:10 [facility] [id number]) Hip Strength Hip Manual Muscle Testing Right Flexion (L2) 4 Good Extension (S1) 4 Good Abduction 4+ Good+ Adduction 5 Normal External Rotation 4+ Good+ Internal Rotation 5 Normal Left Flexion (L2) 4 Good Extension (S1) 4- Good- Abduction 4 Good Adduction 4 Good External Rotation 4 Good Internal Rotation 4+ Good+ Knee Strength Knee Manual Muscle Testing Right Flexion (S2) 5 Normal Extension (L3) 5 Normal Left Flexion (S2) 5 Normal Extension (L3) 5 Normal PT-OP-Q Treatments Start: 11/10/23 17:40 Freq: Status: Active Protocol: Document 02/02/24 09:54 [facility] (Rec: 02/02/24 11:10 [facility] [id number]) Therapeutic Exercises Supine Exercises bridge Supine Exercise Name SL Side bilateral Reps/Minutes 10 Prone Exercises plank Prone Exercise Name forearm and feet- fwd Side bilateral Reps/Minutes 30 sec Sidelying Exercises sideplank Sidelying Exercise Name forearm and knees Side right Reps/Minutes 10x lifts Comments stopped d/t R shoulder pain Standing Exercises squat Side bilateral Equipment Used 5lb B for 2nd set Reps/Minutes 2x10 band walk Standing Exercise Name fwd, bwd, lateral- review HEP Side bilateral Resistance Lvl 2 Reps/Minutes 20ft ea Comments cued DF heel toe fwd, toe heel back stepping, arms across chest. Other Exercises quadruped Other Exercise Name bird dog Side bilateral Reps/Minutes 10 isometrics Other Exercise Name MMT & and LPM and VCT Side bilateral PT-OP-T Assessment and Plan Start: 11/10/23 17:40 Freq: Status: Active Protocol: Document 02/02/24 09:54 [facility] (Rec: 02/02/24 11:10 [facility] [id number]) Physical Therapy Assessment Goals balance Short Term Goal (STG) Pt will be able to balance in SLS at least 10 sec on LLE w/o pain 12/08/23: GOAL MET LLE 17 sec, RLE 24 sec. STG Duration 12/09 GOAL MET 12/08/23 Halfway Goal (LTG) Pt will be able to balance in SLS for 30 sec B to show improved stabiltiy 02/01->30 sec R, 18 sec L LTG Duration 02/22 strength Short Term Goal (STG) Pt will be indep w/HEP 12/08/23: Stretching LEs, added hip abd and hip abd bridge TB #3. 12/11/23: added lunges, band walk, squat to various surfaces. Hip flexor stretch djusted HEP to plank fwd/ side and standing exercises along w/cat/cow/open book. STG Duration achieved advancing as able Halfway Goal (LTG) Pt will score at least 4+/5 on all LE MMT and at least 3/5 on LPM to show improved stability to allow greater ease w/mobility. 02/01-improved LTG Duration 03/08 activities Short Term Goal (STG) Pt will be able to do transitions between positions (sit to stand/out of bed) w/o feeling bent over when initially standing 12/08/23: post manual in PT feels fine no tension in hip or back. Will pay attention early am by next tx, how progressing. 12/11/23: very slight fwd tension but nothing like when started STG Duration achieved 02/01 Production Designer Goal (LTG) Pt will report being able to walk more regularly and be able to do hills and longer walks w/o inc pain greater than 2/10 after 12/11/23: Progressing not consistant: walked [place]07 and did well up inclines no pain. Will assess again this weekend. 02/01-doing hills with a little tightness w/steeper hills and is gradually inc distance 4/10 LTG Duration 03/08 Assessment Summary Assessment Pt shows much improved strength and functional ability. he has minor restrictions w/activity and is cont to gradually inc w/pain up to 4/10 on L hip w/inc walking. Balance still dec on L side. Cont PT to focus on strength, balance and dec pain . Physical Therapy Plan Frequency and Duration Frequency of Treatment 1x/wk Duration of treatment (weeks) 5 Plan of Care Start Date 02/02/24 Plan of Care End Date 03/08/24 Therapeutic Interventions Therapeutic Interventions Balance Training,Gait Training ,Home Exercise Program,Joint Mobilizations,Manual Therapy, Neuromuscular Re-education, Patient/Caregiver Education, Self-Care/Home Management,Soft Tissue Mobilization,Taping, Therapeutic Activities, Therapeutic Exercises Modalities Cold Pack/Ice Massage,Electric Stimulation,Hot Packs, Traction- Mechanical Next Visit Focus/Plan Next Note Type Discharge Summary Next Visit Plan decide if PT still needed
--- NOTE | 2024-02-02 11:11 | PT.OPPOC ---
Physical, Occupational & Speech Therapy At [facility] Current Diagnoses Trochanteric bursitis, left hip (02/02/24) Pain in right leg (02/02/24) Difficulty in walking, not elsewhere classified (02/02/24) Unsteadiness on feet (02/02/24) Visit Care Team Role Provider Type Mary Luis PA-C Attending Provider Physician Wig Sales Consultant Family Provider Primary Care Provider Referring Provider Specialty: Medical Address: [place], [address] Email: [email or web address] Plan Of Care PT-OP-B Current Condition Start: 11/10/23 17:40 Freq: Status: Active Protocol: Document 11/11/23 13:53 [facility] (Rec: 11/11/23 15:19 [facility] [id number]) Current Condition History of Current Condition Current Complaints L hip lat, lumbar pain, R ischial tub History of Current Condition hx of dx from neurosuregon L5- S1 OA. THis August pt had in begininning challenging to walk 1 flat mile w/o L post Lat hip pain. Had pain in R glute pain around ischial tub ed of august when did lots of gardening . Mar 2022 had severe LBP like he'd never had and couldn't stand w/o helping him or walking stick to get to the bathroom. Then Juan Ramon had covid and was hospitalizated w/Afib, heart infection and stroke. Had watchman heart implant apr 2023. at end of august this year, came home from vacation and did a lot of gardening tasks Had to try to stretch and rolli t out to keep him moving . Had some weakness in front of L thigh. things are starting to get a little better. Still can't do a full loop of [place]. did it once but it was rough where B calves and L lat hip tightness and weakness of legs. Back gets stiff and can be hard to get standing straight up when getting up. Sleeping now is better. He was having insomnia but not due to pain in August. Now sleeping through the night . Was given ext stretches for back and initially helped but then seemed to get worse, so now avoiding it. Normal activity is walking 1-2 miles like [place], doing a lot of landscaping and gardening w/o breaks for 3 hours(now has to take breaks every 30 min or less). Does stationary bike especially in winter daily. Has lumbar issues from time to time that seemed more musclar in the past. R QL would lock up on him sometimes. This has been on/off for 15-20 years w/ o injury. Had PT in fall of 2021 for neck and had started to address back some then. Pt is a retired massage therapist . Treatment Goals Patient/Caregiver Goals improved strength and balance and flexiblity; assess whats is going on PT-OP-T Assessment and Plan Start: 11/10/23 17:40 Freq: Status: Active Protocol: Document 02/02/24 09:54 [facility] (Rec: 02/02/24 11:10 [facility] [id number]) Physical Therapy Assessment Goals balance Short Term Goal (STG) Pt will be able to balance in SLS at least 10 sec on LLE w/o pain 12/08/23: GOAL MET LLE 17 sec, RLE 24 sec. STG Duration 12/09 GOAL MET 12/08/23 Garageman Goal (LTG) Pt will be able to balance in SLS for 30 sec B to show improved stabiltiy 02/01->30 sec R, 18 sec L LTG Duration 02/22 strength Short Term Goal (STG) Pt will be indep w/HEP 12/08/23: Stretching LEs, added hip abd and hip abd bridge TB #3. 12/11/23: added lunges, band walk, squat to various surfaces. Hip flexor stretch djusted HEP to plank fwd/ side and standing exercises along w/cat/cow/open book. STG Duration achieved advancing as able Mcfp Goal (LTG) Pt will score at least 4+/5 on all LE MMT and at least 3/5 on LPM to show improved stability to allow greater ease w/mobility. 02/01-improved LTG Duration 03/08 activities Short Term Goal (STG) Pt will be able to do transitions between positions (sit to stand/out of bed) w/o feeling bent over when initially standing 12/08/23: post manual in PT feels fine no tension in hip or back. Will pay attention early am by next tx, how progressing. 12/11/23: very slight fwd tension but nothing like when started STG Duration achieved 02/01 Mcfp Goal (LTG) Pt will report being able to walk more regularly and be able to do hills and longer walks w/o inc pain greater than 2/10 after 12/11/23: Progressing not consistant: walked [place]07 and did well up inclines no pain. Will assess again this weekend. 02/01-doing hills with a little tightness w/steeper hills and is gradually inc distance 4/10 LTG Duration 03/08 Assessment Summary Assessment Pt shows much improved strength and functional ability. he has minor restrictions w/activity and is cont to gradually inc w/pain up to 10 on L hip w/inc walking. Balance still dec on L side. Cont PT to focus on strength, balance and dec pain . Physical Therapy Plan Frequency and Duration Frequency of Treatment 1x/wk Duration of treatment (weeks) 5 Plan of Care Start Date 02/02/24 Plan of Care End Date 03/08/24 Therapeutic Interventions Therapeutic Interventions Balance Training,Gait Training ,Home Exercise Program,Joint Mobilizations,Manual Therapy, Neuromuscular Re-education, Patient/Caregiver Education, Self-Care/Home Management,Soft Tissue Mobilization,Taping, Therapeutic Activities, Therapeutic Exercises Modalities Cold Pack/Ice Massage,Electric Stimulation,Hot Packs, Traction- Mechanical Next Visit Focus/Plan Next Note Type Discharge Summary Next Visit Plan decide if PT still needed Plan of Care Dates Plan of Care Start Date 02/02/24 Plan of Care End Date 03/08/24 Electronically Signed by: Olya Gomez, PT 02/02/24 1111 If you are in agreement with this Plan of Care, please return a signed and dated copy. I have reviewed this Plan of Care and certify that the skilled therapy services above are required to meet the patient?s needs. Physician Signature Date Printed Name and Credentials Clinical Instructor Signature Printed Name and Credentials
--- NOTE | 2024-03-29 09:28 | PT.OPDS ---
Current Diagnoses Trochanteric bursitis, left hip (02/02/24) Pain in right leg (02/02/24) Difficulty in walking, not elsewhere classified (02/02/24) Unsteadiness on feet (02/02/24) Visit Care Team Role Provider Type Mary Luis PA-C Attending Provider Physician School Administrator Family Provider Primary Care Provider Referring Provider Specialty: Medical Address: [place], [address] Email: [email or web address] Visit Number Visit Number 13 Discharge Summary PT-OP-B Current Condition Start: 11/10/23 17:40 Freq: Status: Active Protocol: Document 11/11/23 13:53 [facility] (Rec: 11/11/23 15:19 [facility] [id number]) Current Condition History of Current Condition Current Complaints L hip lat, lumbar pain, R ischial tub History of Current Condition hx of dx from neurosuregon L5- S1 OA. THis August pt had in begininning challenging to walk 1 flat mile w/o L post Lat hip pain. Had pain in R glute pain around ischial tub ed of august when did lots of gardening . Mar 2022 had severe LBP like he'd never had and couldn't stand w/o helping him or walking stick to get to the bathroom. Then Apr had covid and was hospitalizated w/Afib, heart infection and stroke. Had watchman heart implant apr 2023. at end of august this year, came home from vacation and did a lot of gardening tasks Had to try to stretch and rolli t out to keep him moving . Had some weakness in front of L thigh. things are starting to get a little better. Still can't do a full loop of [place]. did it once but it was rough where B calves and L lat hip tightness and weakness of legs. Back gets stiff and can be hard to get standing straight up when getting up. Sleeping now is better. He was having insomnia but not due to pain in August. Now sleeping through the night . Was given ext stretches for back and initially helped but then seemed to get worse, so now avoiding it. Normal activity is walking 1-2 miles like [place], doing a lot of landscaping and gardening w/o breaks for 3 hours(now has to take breaks every 30 min or less). Does stationary bike especially in winter daily. Has lumbar issues from time to time that seemed more musclar in the past. R QL would lock up on him sometimes. This has been on/off for 15-20 years w/ o injury. Had PT in fall of 2021 for neck and had started to address back some then. Pt is a retired massage therapist . Treatment Goals Patient/Caregiver Goals improved strength and balance and flexiblity; assess whats is going on PT-OP-C Subjective Start: 11/10/23 17:40 Freq: Status: Active Protocol: Document 02/02/24 09:54 [facility] (Rec: 02/02/24 11:10 [facility] [id number]) OP-PT Subjective Patient Comments Patient Comments Pt reports some min discomfort in L lat and ant hip when didnt stretch before doing work yesterday. Overall less pain. Had COVID so had to cancel last appt. Worst pain 4 /10 recently with longer walking. Lifting and bending okay. Patient Reported Progress Improving PT-OP-D Balance Start: 11/10/23 17:40 Freq: Status: Active Protocol: Document 11/11/23 13:53 [facility] (Rec: 11/11/23 15:19 [facility] [id number]) Balance Tests Single Limb Standing Single Limb- Right 26 sec Single Limb- Left 8 sec w/inc deviation PT-OP-F Manual Assessment Start: 11/10/23 17:40 Freq: Status: Active Protocol: Document 11/11/23 13:53 [facility] (Rec: 11/11/23 15:19 [facility] [id number]) Manual Assessments Joint Mobility Assessment Joint Mobility Assessment R iliac crest higher, equal greater trochanter height PT-OP-G Mobility & Gait Start: 11/10/23 17:40 Freq: Status: Active Protocol: Document 11/11/23 13:53 [facility] (Rec: 11/11/23 15:19 [facility] [id number]) OP Gait Assessment Comments Gait Comments very rigid, dec B push off, good arm swing but no hip ext or trunk movement PT-OP-J Posture/Palpation/Skin Start: 11/10/23 17:40 Freq: Status: Active Protocol: Document 02/02/24 09:54 [facility] (Rec: 02/02/24 11:10 [facility] [id number]) Posture Evaluation [facility] Postural Classification System Vertical Compression Test 3 Lumbar Protective Mechanism Left AP 2 Lumbar Protective Mechanism Right AP 2 Lumbar Protective Mechanism Left PA 2 Lumbar Protective Mechanism Right PA 2 PT-OP-K Range of Motion Start: 11/10/23 17:40 Freq: Status: Active Protocol: Document 11/11/23 13:53 [facility] (Rec: 11/11/23 15:19 [facility] [id number]) Lumbar Spine Range of Motion Lumbar Spine Active Percentage Testing Position Standing Flexion 20 Extension 5 Rotation Left 35 Rotation Right 25 Lateral Flexion Left 40 Lateral Flexion Right 50 ROM Limitations Soft Tissue Tightness Comments mid cruz w/o pelvis blocked, mid femur w/pelvis blocked; tightness R QL region w/B SB PT-OP-L Special Tests Start: 11/10/23 17:40 Freq: Status: Active Protocol: Document 11/11/23 13:53 [facility] (Rec: 11/11/23 15:19 [facility] [id number]) Special Tests Lumbar Spine Special Tests Manolo Test Results tight hip flexors & rectus femoris Straight Leg Raise Test Results 63 L; 68 r Slump Test Results slump and ext sit HS tightness PT-OP-M Strength Start: 11/10/23 17:40 Freq: Status: Active Protocol: Document 02/02/24 09:54 [facility] (Rec: 02/02/24 11:10 [facility] [id number]) Hip Strength Hip Manual Muscle Testing Right Flexion (L2) 4 Good Extension (S1) 4 Good Abduction 4+ Good+ Adduction 5 Normal External Rotation 4+ Good+ Internal Rotation 5 Normal Left Flexion (L2) 4 Good Extension (S1) 4- Good- Abduction 4 Good Adduction 4 Good External Rotation 4 Good Internal Rotation 4+ Good+ Knee Strength Knee Manual Muscle Testing Right Flexion (S2) 5 Normal Extension (L3) 5 Normal Left Flexion (S2) 5 Normal Extension (L3) 5 Normal PT-OP-T Assessment and Plan Start: 11/10/23 17:40 Freq: Status: Active Protocol: Document 03/29/24 09:27 [facility] (Rec: 03/29/24 09:28 [facility] [id number]) Physical Therapy Assessment Goals balance Short Term Goal (STG) Pt will be able to balance in SLS at least 10 sec on LLE w/o pain 8/20/24: GOAL MET LLE 17 sec, RLE 24 sec. STG Duration 12/09 GOAL MET 12/08/23 Assisted Goal (LTG) Pt will be able to balance in SLS for 30 sec B to show improved stabiltiy 02/01->30 sec R, 18 sec L LTG Duration 02/22 strength Short Term Goal (STG) Pt will be indep w/HEP 12/08/23: Stretching LEs, added hip abd and hip abd bridge TB #3. 12/11/23: added lunges, band walk, squat to various surfaces. Hip flexor stretch djusted HEP to plank fwd/ side and standing exercises along w/cat/cow/open book. STG Duration achieved advancing as able Assisted Goal (LTG) Pt will score at least 4+/5 on all LE MMT and at least 3/5 on LPM to show improved stability to allow greater ease w/mobility. 02/01-improved LTG Duration 03/08 activities Short Term Goal (STG) Pt will be able to do transitions between positions (sit to stand/out of bed) w/o feeling bent over when initially standing 12/08/23: post manual in PT feels fine no tension in hip or back. Will pay attention early am by next tx, how progressing. 12/11/23: very slight fwd tension but nothing like when started STG Duration achieved 02/01 Airline Mechanic Goal (LTG) Pt will report being able to walk more regularly and be able to do hills and longer walks w/o inc pain greater than 2/10 after 12/11/23: Progressing not consistant: walked [place]07 and did well up inclines no pain. Will assess again this . 02/01-doing hills with a little tightness w/steeper hills and is gradually inc distance 07/28 LTG Duration 03/08 Assessment Summary Assessment pt had made great progress w/ PT with much dec pain and improved strength and balanec and was doing well with HEP. Planned one more follow up after 02/01 visit but pt cancelled and did not reschedule. DC d/t pt no longer attending PT Physical Therapy Plan Discharge Physical Therapy Discharge Reasons No Longer Attending PT
== END 2024-04-06 14:53 | disposition home or self-care (01) ==
LOC: PHYS 09:45
PROVIDERS: Family Provider Student in an Organized Health Care Education/Training Program; PCP Student in an Organized Health Care Education/Training Program; Referring Provider Student in an Organized Health Care Education/Training Program; Visit Provider Student in an Organized Health Care Education/Training Program
DX: M70.62 Trochanteric bursitis, left hip (principal); M79.604 Pain in right leg; R26.2 Difficulty in walking, not elsewhere classified
CPT/HCPCS: 97110; 97112; 97116; 97140; 97162; 97530; 97535

== ENCOUNTER → 2024-07-26 15:14 | Outpatient (CLI) | payer MEDICARE, OTHER, SELFPAY ==
--- NOTE | 2024-07-26 15:15 | DI.US.S_ITS ---
PROCEDURE: US THYROID INDICATIONS: Low TSH TECHNIQUE: Real-time scanning was performed of the thyroid gland, with image documentation. COMPARISON: [facility], US, US THYROID, 01/24/2020, 8:30. FINDINGS: Thyroid: Right lobe measures 4.5 x 2.3 x 2.3 cm. Left lobe measures 3.7 x 1.2 x 2.3 cm. Isthmus is 0.2 cm thick. Echotexture is heterogeneous. IMPRESSION: Heterogeneous thyroid gland. No thyroid nodules visualized. Approved by: Niyah Garcia M.D.,Ph.D. on 07/27/2024 at 16:42
== END ==
PROVIDERS: Family Provider Student in an Organized Health Care Education/Training Program; PCP Family Medicine; Referring Provider Family Medicine; Visit Provider Family Medicine
DX: R79.89 Other specified abnormal findings of blood chemistry (principal)
CPT/HCPCS: 76536

== ENCOUNTER → 2024-08-10 11:02 | Outpatient (CLI) | payer MEDICARE, OTHER, SELFPAY | PROVIDERS: Family Provider Student in an Organized Health Care Education/Training Program; PCP Family Medicine; Visit Provider Urology | DX: N40.1 Benign prostatic hyperplasia with lower urinary tract symptoms (principal); N13.8 Other obstructive and reflux uropathy | CPT/HCPCS: 87086 ==

== ENCOUNTER → 2024-09-15 13:50 | Outpatient (CLI) | payer MEDICARE, OTHER, SELFPAY ==
--- NOTE | 2024-09-15 13:52 | DI.NM.S_ITS ---
PROCEDURE: NM MAG PERF SPECT REST & STR Rest and exercise myocardial perfusion SPECT with gated imaging and ejection fraction RADIOPHARMACEUTICAL: 27.5 mCi Tc-99m sestamibi IV at rest and 26.1 mCi Tc-99m sestamibi IV at peak exercise. A 2 day-protocol was performed. INDICATIONS: CAD PQRS ATTESTATIONS: Measure 322 - Is this imaging test primarily performed on a low-risk surgery patient for preoperative evaluation within 30 days preceding their low-risk non-cardiac surgery? Low-risk surgery is defined as cardiac or myocardial infarction less than 1%, including (but not limited to) endoscopic procedures, superficial procedures, cataract surgery, and excisional breast surgery: Answer: No Measure 323 - Is this imaging test performed primarily for the monitoring of an asymptomatic patient who had percutaneous coronary intervention on the visit date or within 2 years of the visit date? Answer: No Measure 324 - Is this imaging test performed primarily for the initial detection and risk assessment on an asymptomatic, low coronary heart disease patient? Low CHD risk definition = clinicians should consider the maximum number of available patient factors used to estimate risk based on [place] (ATP III criteria), typically age, gender, diabetes, smoking status, and use of blood pressure medication, and integrate age appropriate estimates for missing elements, such as LDL or standard blood pressure. Answer: No TECHNIQUE: Radiopharmaceutical was injected at peak stress test, and also at rest. SPECT images were obtained. SPECT myocardial perfusion images were displayed in short axis, horizontal long axis, and vertical long axis views. Gated images were reviewed using Auto[employer] software. COMPARISON: None. CARDIAC STRESS: A standard Julian treadmill exercise tolerance test was performed by the patient under the supervision of an attending staff. The patient exercised for 7 minutes and 0 seconds; functional aerobic impairment (IRINEO) is -9%. Hemodynamic data: There is normal blood pressure and heart rate response to exercise stress. Patient achieved 110% of maximum predicted heart rate at peak exercise. Symptoms: Patient denied chest pain during exercise. EKG: Horizontal ST depressions noted in the lateral precordial leads at peak stress. These ST segments normalized at 3 minutes into recovery. Frequent PACs and PACs PVCs noted during recovery. FINDINGS: Raw data: There is good myocardial labeling by radiotracer. No significant motion artifacts. [id number]-[id number] ratio is 0.17 (normal is less than 0.38 for sestamibi tracer, and less than 0.50 for thallium tracer). Left ventricle function: Gated images demonstrate normal left ventricle wall thickening. No segmental wall motion abnormality. No transient ischemic dilation; TID is 0.98 (normal less than 1.3). The left ventricle resting end-diastolic volume is 89 mL. Left ventricle stress ejection fraction is 71%; normal values are above 45%. Myocardial perfusion: Slight hypoperfusion was noted in the inferior basal segment of the rest images. Stress images demonstrated mild increase in the hypoperfusion in the basal now extending to the mid segment of the inferior segment. However prone images had no perfusion defects. Therefore, the findings are most likely due to attenuation. IMPRESSION: 1. Negative exercise myocardial perfusion scan for ischemia and infarction. 2. Good exercise tolerance 3. No changes when compared with previous myocardial perfusion scan. Dictated by: Kunal Navarro M.D. on 09/16/2024 at 16:17 Approved by: Kunal Navarro M.D. on 09/16/2024 at 16:20
== END ==
PROVIDERS: Family Provider Student in an Organized Health Care Education/Training Program; PCP Student in an Organized Health Care Education/Training Program; Referring Provider Student in an Organized Health Care Education/Training Program; Visit Provider Internal Medicine Cardiovascular Disease
DX: I25.10 Atherosclerotic heart disease of native coronary artery without angina pectoris (principal)
CPT/HCPCS: 78452; 93017; A9502

== ENCOUNTER → 2024-11-10 15:39 | Outpatient (CLI) | payer MEDICARE, OTHER, SELFPAY ==
[2024-11-10 16:33] LABS: Add Manual Diff / Slide Review NO; Hematocrit 28.4 % (41-53); Hemoglobin 9.8 g/dL (13.5-17.5); Lymphocytes Absolute Auto 1100 /uL (1100-4500); Mean Corpuscular HGB Conc 34.6 % (30-36); Mean Corpuscular Hemoglobin 30.9 PG (26-34); Mean Corpuscular Volume 89.3 fL (80-100); Platelet Count 166 X10^3/uL (150-400)
[2024-11-10 17:12] LABS: Iron 60 ug/dL (49-181)
[2024-11-10 17:23] LABS: Total Iron Binding Capacity 384 ug/dL (261-462)
[2024-11-10 17:43] LABS: Ferritin 11 ng/mL (18-464)
== END ==
PROVIDERS: Family Provider Student in an Organized Health Care Education/Training Program; PCP Family Medicine; Referring Provider Internal Medicine Gastroenterology; Visit Provider Internal Medicine Gastroenterology
DX: K44.9 Diaphragmatic hernia without obstruction or gangrene (principal); R79.0 Abnormal level of blood mineral
CPT/HCPCS: 36415; 82728; 83540; 83550; 85025

== ENCOUNTER → 2024-11-26 10:42 | Outpatient (CLI) | payer MEDICARE, OTHER, SELFPAY ==
--- NOTE | 2024-11-26 10:44 | DI.CT.S_ITS ---
PROCEDURE: CT ABDOMEN PELVIS W CON INDICATIONS: anemia, iron deficiency TECHNIQUE: After the administration of intravenous contrast, axial sections acquired from the lung bases to the pubic symphysis. Coronal and sagittal reformats were performed. For radiation dose reduction, the following was used: automated exposure control, adjustment of mA and/or kV according to patient size. COMPARISON: [facility], CT, CT ABDOMEN PELVIS WITH CONTRAST, 06/19/2022, 14:33. FINDINGS: Image quality: Diagnostic. Lower Chest: No significant findings. ABDOMEN: Liver: Stable appearance of a 1.2 cm hemangioma in the right hepatic lobe medially. Gallbladder: Status post cholecystectomy Biliary ducts: No biliary dilation. Pancreas: Stable appearance of a cystic lesion in the tail posteriorly measuring 1.9 x 1.2 cm. There is also a adjacent 1.25 cm hyperdense lesion in the tail. Spleen: Size is within normal limits. Adrenal Glands: No adrenal nodules. Kidneys and Ureters: No hydronephrosis. No solid mass. No complex renal cystic lesion which requires follow up. Stomach and Bowel: Normal colonic caliber, without significant wall thickening. Fluid-filled small bowel loops. No areas of abnormal enhancement. No definite wall thickening or inflammatory changes. No significant extramural findings. Peritoneum: No abnormal intraperitoneal fluid. No free air. Ventral Wall: No significant ventral hernia. Abdominal Nodes: No retroperitoneal or mesenteric adenopathy by size criteria. Vessels: Aorta and inferior vena cava are normal in size. PELVIS: Pelvic Organs: Significant prostate enlargement, measuring 7.6 cm in craniocaudal extent, with nodular prominence into the bladder base. Bladder: Mild diffuse wall thickening Pelvic Nodes: No enlarged lymph nodes. Miscellaneous: No inguinal hernias are seen. Bones: No aggressive osseous abnormality. IMPRESSION: 1. No acute intra-abdominal abnormality or definite bowel lesion seen. 2. Please note that this single phase CT enterography is optimized for evaluation of inflammatory bowel disease. Assessment for bowel mass or vascular lesion is better accomplished with multi phase CT enterography. 3. 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 However, there is also an adjacent hyperdense lesion which may represent neuroendocrine tumor or splenule. This appears somewhat more prominent but this may be secondary to phase of enhancement. Follow-up pancreatic MRI may be obtained in 3 months. 4. Prostate enlargement with bladder outlet obstruction. Dictated by: Librado Brown M.D. on 11/26/2024 at 21:23 Approved by: Librado Brown M.D. on 11/26/2024 at 21:31
== END ==
PROVIDERS: Family Provider Student in an Organized Health Care Education/Training Program; PCP Family Medicine; Referring Provider Internal Medicine Gastroenterology; Visit Provider Internal Medicine Gastroenterology
DX: D50.9 Iron deficiency anemia, unspecified (principal); K86.89 Other specified diseases of pancreas; N40.0 Benign prostatic hyperplasia without lower urinary tract symptoms; N32.0 Bladder-neck obstruction
CPT/HCPCS: 36415; 74177; 82565; Q9967

== ENCOUNTER → 2024-11-26 10:46 | Outpatient (CLI) | payer MEDICARE, OTHER, SELFPAY ==
[2024-11-26 11:28] LABS: Estimated Glomerular Filt Rate > 60 mL/min (>60)
== END ==
PROVIDERS: Family Provider Student in an Organized Health Care Education/Training Program; PCP Family Medicine; Referring Provider Internal Medicine Gastroenterology; Visit Provider Internal Medicine Gastroenterology
DX: D50.9 Iron deficiency anemia, unspecified (principal)
CPT/HCPCS: 36415; 82565

== ENCOUNTER → 2025-01-14 11:22 | Outpatient (CLI) | payer MEDICARE, OTHER, SELFPAY ==
[2025-01-14 13:54] LABS: Blood Urea Nitrogen 18 mg/dL (9-20); Calcium 9.1 mg/dL (8.4-10.2); Carbon Dioxide 27 mmol/L (22-32); Chloride 100 mmol/L (98-107); Estimated Glomerular Filt Rate > 60 mL/min (>60); Glucose 176 mg/dL (70-99); HEMOLYSIS < 15 (0-50); Potassium 3.9 mmol/L (3.4-5.1); Sodium 135 mmol/L (137-145)
== END ==
PROVIDERS: Family Provider Student in an Organized Health Care Education/Training Program; PCP Family Medicine; Referring Provider Internal Medicine Cardiovascular Disease; Visit Provider Internal Medicine Cardiovascular Disease
DX: I10 Essential (primary) hypertension (principal)
CPT/HCPCS: 36415; 80048

== ENCOUNTER → 2025-02-08 12:39 | Outpatient (CLI) | payer MEDICARE, OTHER, SELFPAY ==
--- NOTE | 2025-02-08 12:41 | DI.ECHO.S_ITS ---
[facility] : : [id number] : [place] : : [id number] : : Phone: [phone] Echocardiogram Report + + :Name: ESAU SANTIAGO Study Date: 02/08/2025 Height: 66 in : :[facility] ReadingLocation: Weight: 152 lb : : Gender: Male BSA: 1.8 m2 : :: 1950 Age: 74 yrs BP: 147/72 mmHg: :Reason For Study: POST TAVR : :Ordering Physician: GERRY, : :SILVANO Performed By: Marcos Ellsworth : :Referring: SILVANO GARRETT : + + Interpretation Summary The left ventricle is normal in size. The ejection fraction is estimated to be 65-70%. The right ventricle is normal in size and function. 26mm Lissa 3 TAVR The peak aortic velocity is 2.4 m/sec. The aortic valve mean gradient is 12.6 mmHg. The peak aortic velocity on the previous exam was 3.3 m/sec. Mild central aortic regurgitation Mild MR and mild tricuspid regurgitation. The right ventricular systolic pressure is estimated to be at least 28.5 mmHg based on an estimated right atrial pressure of 3 mm Hg. Mild atherosclerotic plaque(s) in the aortic arch. Procedure: A two-dimensional transthoracic echocardiogram with color flow and Doppler was performed. The study quality was technically good. Comparison is made with the echocardiogram of 07/04/2022. The patient was in normal sinus rhythm during the exam. Left Ventricle: The left ventricle is normal in size. Left ventricular wall thickness is mildly increased. There is no ventricular septal defect visualized. The ejection fraction is estimated to be 65-70%. There are no focal wall motion abnormalities. Grade II diastolic dysfunction with elevated left atrial pressure. Right Ventricle: The right ventricle is normal in size and function. Atria: The left atrium is mildly dilated. The left atrium has mildly increased in size since the prior echo exam. Right atrial size is normal. There is no Doppler evidence for an interatrial shunt. Mitral Valve: There is mild to moderate mitral annular calcification. The mitral valve leaflets appear mildly thickened. There is mild mitral regurgitation. Aortic Valve: 26mm Lissa 3 TAVR. The peak aortic velocity is 2.4 m/sec. The aortic valve mean gradient is 12.6 mmHg. The peak aortic velocity on the previous exam was 3.3 m/sec. There is mild aortic regurgitation. Tricuspid Valve: The tricuspid valve is normal. There is mild tricuspid regurgitation. The right ventricular systolic pressure is estimated to be at least 28.5 mmHg based on an estimated right atrial pressure of 3 mm Hg. Pulmonic Valve: The pulmonic valve is not well seen, but is grossly normal. There is trace pulmonic regurgitation. Great Vessels: The aortic root is normal size. Mild atherosclerotic plaque (s) in the aortic arch. The pulmonary artery is normal size. The IVC is of normal diameter and collapses greater than 50% with a sniff. This suggests a low right atrial pressure of 3 mm Hg. Pericardium/ Pleura There is no pericardial effusion. There is no pleural effusion. MMode/2D Measurements & Calculations LVIDd: 4.2 cm LVOT diam: 1.8 cm LVIDs: 2.3 cm Ao root diam: 3.5 cm FS: 46.6 % EPSS: 1.5 cm IVSd: 1.2 cm LVPWd: 0.94 cm LV snider. diameter/BSA (cm/m^2): 2.4 LV sys. diameter/BSA (cm/m^2): 1.3 LA A2 area: 23.3 cm2 RA long axis: 5.1 cm LA A4 area: 22.1 cm2 RA area: 17.7 cm2 LA length (vol): 5.7 cm RA vol: 51.9 ml LA vol: 76.1 ml RA : 29.2 ml/m2 LA vol index: 42.7 ml/m2 IVC diam: 2.0 cm RVD1 (basal): 3.6 cm RVD2 (mid): 3.1 cm TAPSE: 1.8 cm Doppler Measurements & Calculations Ao V2 max: 238.0 cm/sec LVOT Max Davie: 103.9 cm/sec Ao V2 mean: 167.4 cm/sec LV V1 max P.3 mmHg Ao max P.7 mmHg LV V1 VTI: 26.6 cm Ao mean P.6 mmHg ANTHONY(I,D): 1.3 cm2 Ao V2 VTI: 54.2 cm ANTHONY(V,D): 1.1 cm2 sev ratio: 0.49 ANTHONY indexed to BSA (cm^2/m^2): 0.71 AI P1/2t: 584.2 msec AI dec slope: 203.3 cm/sec2 MV E max davie: 113.2 cm/sec TR max davie: 252.4 cm/sec MV A max davie: 80.8 cm/sec TR max P.5 mmHg MV E/A: 1.4 PA V2 max: 96.2 cm/sec Med Peak E' Davie: 4.8 cm/sec PA V2 mean: 72.8 cm/sec E/E' med: 23.6 PA mean P.3 mmHg Lat Peak E' Davie: 6.0 cm/sec PA pr(Accel): 48.2 mmHg E/E' lat: 18.9 E/e' average: 21.2 MV dec time: 0.23 sec SV(LVOT): 68.7 ml Reading Physician:04:30 PM
== END ==
PROVIDERS: PCP Family Medicine; Referring Provider Internal Medicine Cardiovascular Disease; Visit Provider Internal Medicine Cardiovascular Disease
DX: I08.3 Combined rheumatic disorders of mitral, aortic and tricuspid valves (principal); I70.0 Atherosclerosis of aorta; Z95.2 Presence of prosthetic heart valve
CPT/HCPCS: 93306

== ENCOUNTER → 2025-02-23 13:43 | Outpatient (CLI) | payer MEDICARE, OTHER, SELFPAY ==
[2025-02-23 15:20] LABS: TSH w/ Reflex to FT4 0.26 uIU/mL (0.47-4.68)
[2025-02-23 16:05] LABS: Free T4, Direct Thyroxine 1.43 ng/dL (0.78-2.19)
== END ==
LOC: LAB 13:45
PROVIDERS: PCP Family Medicine; Referring Provider Internal Medicine Endocrinology, Diabetes & Metabolism; Visit Provider Internal Medicine Endocrinology, Diabetes & Metabolism
DX: E05.90 Thyrotoxicosis, unspecified without thyrotoxic crisis or storm (principal)
CPT/HCPCS: 36415; 83520; 84439; 84443; 84445

== ENCOUNTER → 2025-03-03 10:41 | Outpatient (CLI) | payer MEDICARE, OTHER, SELFPAY ==
--- NOTE | 2025-03-03 10:48 | DI.MRI.S_ITS ---
PROCEDURE: MR AB PANCREATIC/MRCP PROTOCOL INDICATIONS: Pancreatic tail lesion requiring surveillance TECHNIQUE: Coronal HASTE through the abdomen, axial 2-D FLASH in- and [id number], and breath-hold T2 FSE with fat saturation through the biliary system and pancreas. Oblique coronal and axial thin-slice HASTE, radial thick-slab HASTE centered on the extrahepatic bile ducts. Intravenous secretin: Not requested. COMPARISON: None. FINDINGS: Image quality: Diagnostic. Gallbladder: Surgically absent. Biliary ducts: Appropriate biliary tree caliber post cholecystectomy. Pancreas: Bilobed cystic lesion in the tail of the pancreas measures 1.8 x 1.0 cm and is without significant septal enhancement or mural nodularity. The pancreas is otherwise normal. No ductal dilatation. OTHER: Lung bases: Unremarkable. Liver: The T2 hyperintense lesion posteriorly in segment six measuring 1.3 cm is not well characterized postcontrast due to motion and is likely hepatic hemangioma. No other liver lesions. Spleen: Size is within normal limits. Adrenal Glands: No adrenal nodules. Kidneys and Ureters: A few small renal cysts. Otherwise symmetric enhancement. No solid mass or hydronephrosis. Stomach and Bowel: Stomach and visible bowel loops are within normal limits. Peritoneum: No abnormal intraperitoneal fluid. No free air. Ventral Wall: No hernia. Abdominal Nodes: No retroperitoneal or mesenteric adenopathy by size criteria. Vessels: The abdominal aorta, IVC, and portal vein are of normal caliber. Bones: No aggressive osseous abnormality. 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 No further follow-up is needed. 1.3 cm small hepatic hemangioma. Dictated by: Genesis Holt M.D. on 03/03/2025 at 16:10 Approved by: Genesis Holt M.D. on 03/03/2025 at 16:19
== END ==
LOC: MRI 10:45
PROVIDERS: PCP Family Medicine; Referring Provider Family Medicine; Visit Provider Internal Medicine Gastroenterology
DX: K86.9 Disease of pancreas, unspecified (principal); D18.03 Hemangioma of intra-abdominal structures
CPT/HCPCS: 74183; A9579

== ENCOUNTER → 2025-03-20 11:27 | Outpatient (CLI) | payer MEDICARE, OTHER, SELFPAY ==
[2025-03-20 12:00] LABS: Hematocrit 42.3 % (41-53); Hemoglobin 14.1 g/dL (13.5-17.5); Mean Corpuscular HGB Conc 33.4 % (30-36); Mean Corpuscular Hemoglobin 28.0 PG (26-34); Mean Corpuscular Volume 83.8 fL (80-100); Platelet Count 155 X10^3/uL (150-400)
[2025-03-20 12:22] LABS: Alanine Aminotransferase 21 IU/L (<50); Albumin 4.4 g/dL (3.5-5.0); Albumin Globulin Ratio 1.8 (1.0-2.8); Alkaline Phosphatase 55 U/L (38-126); Blood Urea Nitrogen 17 mg/dL (9-20); Calcium 9.3 mg/dL (8.4-10.2); Carbon Dioxide 29 mmol/L (22-32); Chloride 99 mmol/L (98-107); Estimated Glomerular Filt Rate > 60 mL/min (>60); Globulin 2.5 g/dL (1.7-4.1); Glucose 199 mg/dL (70-99); HEMOLYSIS < 15 (0-50); Potassium 4.0 mmol/L (3.4-5.1); Sodium 136 mmol/L (137-145); Total Protein 6.9 g/dL (6.3-8.2)
== END ==
PROVIDERS: PCP Family Medicine; Referring Provider Internal Medicine Endocrinology, Diabetes & Metabolism; Visit Provider Internal Medicine Endocrinology, Diabetes & Metabolism
DX: E05.90 Thyrotoxicosis, unspecified without thyrotoxic crisis or storm (principal)
CPT/HCPCS: 36415; 80053; 85027

== ENCOUNTER → 2025-04-17 14:07 | Outpatient (CLI) | payer MEDICARE, OTHER, SELFPAY ==
[2025-04-17 14:37] LABS: Add Manual Diff / Slide Review NO; Hematocrit 40.6 % (41-53); Hemoglobin 14.1 g/dL (13.5-17.5); Lymphocytes Absolute Auto 1100 /uL (1100-4500); Mean Corpuscular HGB Conc 34.7 % (30-36); Mean Corpuscular Hemoglobin 29.4 PG (26-34); Mean Corpuscular Volume 84.9 fL (80-100); Platelet Count 142 X10^3/uL (150-400)
[2025-04-17 15:01] LABS: Alanine Aminotransferase 20 IU/L (<50); Albumin 4.2 g/dL (3.5-5.0); Albumin Globulin Ratio 1.7 (1.0-2.8); Alkaline Phosphatase 55 U/L (38-126); Blood Urea Nitrogen 18 mg/dL (9-20); Calcium 9.3 mg/dL (8.4-10.2); Carbon Dioxide 30 mmol/L (22-32); Chloride 100 mmol/L (98-107); Estimated Glomerular Filt Rate > 60 mL/min (>60); Globulin 2.5 g/dL (1.7-4.1); Glucose 181 mg/dL (70-99); HEMOLYSIS < 15 (0-50); Potassium 3.8 mmol/L (3.4-5.1); Sodium 137 mmol/L (137-145); Total Protein 6.7 g/dL (6.3-8.2)
[2025-04-17 15:18] LABS: Free T4, Direct Thyroxine 1.10 ng/dL (0.78-2.19)
[2025-04-17 15:48] LABS: Thyroid Stimulating Hormone 0.466 uIU/mL (0.47-4.68)
== END ==
PROVIDERS: PCP Family Medicine; Referring Provider Internal Medicine Endocrinology, Diabetes & Metabolism; Visit Provider Internal Medicine Endocrinology, Diabetes & Metabolism
DX: E05.90 Thyrotoxicosis, unspecified without thyrotoxic crisis or storm (principal)
CPT/HCPCS: 36415; 80053; 84439; 84443; 85025